=== PATIENT | male | born 1940 | race Two or more races ===

== ENCOUNTER 2022-10-20 07:04 | Emergency (ER) | payer OTHER ==
[~2022-10-20] VITALS: Ht 180.3 cm; Wt 81.0 kg
[2022-10-20 07:48] VITALS: BP 129/70
[2022-10-20] MEDS ORDERED: IPRATROPIUM BROM 0.5 MG/2.5ML INH SOL NEB ONE (08:00)
[2022-10-20] MEDS ORDERED: ALBUTEROL SULF 2.5 MG/0.5ML(0.5%) NEB SOLN NEB ONE (08:00)
[2022-10-20] MEDS ORDERED: HYDROcodone-ACET 5/325MG TAB PO ONE (09:30)
[2022-10-20] MEDS ORDERED: HYDR-4902 PO (09:36)
== END 2022-10-20 09:40 | disposition home or self-care (01) ==
LOC: ER 07:04 → EDBD 07:04 → ER 09:40
DX: S72.144A Nondisplaced intertrochanteric fracture of right femur, initial encounter for closed fracture (principal); S72.001A Fracture of unspecified part of neck of right femur, initial encounter for closed fracture; S09.8XXA Other specified injuries of head, initial encounter; J44.9 Chronic obstructive pulmonary disease, unspecified; E11.9 Type 2 diabetes mellitus without complications; Z88.2 Allergy status to sulfonamides; W01.0XXA Fall on same level from slipping, tripping and stumbling without subsequent striking against object, initial encounter; Y93.01 Activity, walking, marching and hiking; Y92.89 Other specified places as the place of occurrence of the external cause; Y99.8 Other external cause status
CPT/HCPCS: 70450; 73700; 94640; 99284; J7644

== ENCOUNTER 2023-04-07 07:50 | Inpatient (IN) | payer OTHER ==
[~2023-04-07] VITALS: Ht 177.8 cm; Wt 91.1 kg
[~2023-04-07 07:50] MED LIST: HYDR-4902 PO
[2023-04-07] MEDS ORDERED: methylPREDNISolone SOD SUCC 125 MG/2 ML VL IV ONE (08:00)
[2023-04-07] MEDS ORDERED: FUROSEMIDE 40 MG/4 ML VIAL IV ONE (08:00)
[2023-04-07] MEDS ORDERED: cefTRIAXone 1GM/50ML D5W 50 ML IV ONE (08:15)
[2023-04-07] MEDS ORDERED: levoFLOXacin 500MG 100 ML IV ONE (08:15)
[2023-04-07 08:25] LABS: Basophils # (auto) 0.1 10 ^3/uL (0-0.2); Basophils % (auto) 0.7 % (0.0-2.0); Eosinophils # (auto) 0.3 10 ^3/uL (0-0.8); Eosinophils % (auto) 2.7 % (0.0-7.0); Hemoglobin 13.4 g/dL (13.5-17.5); Lymphocytes # (auto) 0.7 10 ^3/uL (0.4-5.4); Lymphocytes % (auto) 6.7 % (10.0-50.0); Mean Corpuscular Hemoglobin 29.7 pg (28.0-32.0); Mean Corpuscular Hgb Conc. 32.6 g/dL (32.0-36.0); Mean Corpuscular Volume 91.3 fL (80.0-100.0); Monocytes # (auto) 0.7 10 ^3/uL (0-1.3); Monocytes % (auto) 6.6 % (0.0-12.0); Neutrophils # (auto) 9.3 10 ^3/uL (1.6-8.6); Neutrophils % (auto) 83.3 % (37.0-80.0); Red Blood Cells 4.49 10^6/uL (4.5-5.90); Red Cell Distribution Width 17.7 % (11.8-14.3); White Blood Cell 11.1 10^3/uL (4.4-10.8)
[2023-04-07 08:42] LABS: Alanine Aminotransferase 31 U/L (7-40); Albumin 3.8 g/dL (3.2-4.8); Alkaline Phosphatase 105 U/L (46-116); Anion Gap 8 (5-15); Aspartate Aminotransferase 25 U/L (13-40); BUN/Creatinine Ratio 19.9 (10.0-20.0); Blood Urea Nitrogen 30 mg/dL (9-23); Calcium 8.7 mg/dL (8.7-10.4); Carbon Dioxide 27 mmol/L (20-30); Chloride 108 mmol/L (98-107); Glucose 115 mg/dL (74-106); Magnesium 2.1 mg/dL (1.6-2.6); Potassium 4.5 mmol/L (3.5-5.1); Sodium 143 mmol/L (136-145); Total Protein 6.4 g/dL (5.7-8.2)
[2023-04-07 09:13] LABS: COVID19 ANTIGEN SOFIA FIA NEGATIVE (NEGATIVE)
[2023-04-07 09:43] VITALS: PULSE 102; RESP 25; O2SAT 96
[2023-04-07 11:23] LABS: Urine Bacteria FEW /hpf (None Seen); Urine Blood Negative /uL (Negative); Urine Clarity Clear (Clear); Urine Color Colorless (Yellow); Urine Hyaline Cast FEW /lpf (0 - 2); Urine Protein, UAD TRACE (Negative); Urine Urobilinogen Normal (Negative); Urine WBC <1 /hpf (0 - 3); Urine pH 5.5 (5.0-8.0)
[2023-04-07] MEDS ORDERED: NITROGLYCERIN 0.4 MG SL TAB SL PRN (11:45)
[2023-04-07] MEDS ORDERED: AZITHROMYCIN 500MG/ 250ML 250 ML IV ONE (11:45)
[2023-04-07] MEDS ORDERED: ACETAMINOPHEN 325 MG TAB PO PRN (11:45)
[2023-04-07] MEDS ORDERED: HYDROcodone-ACET 5/325MG TAB PO PRN (11:45)
[2023-04-07] MEDS ORDERED: MORPHINE SULFATE INJ 2 MG/ml SYRG IV PRN (11:45)
[2023-04-07] MEDS ORDERED: ASPirin 81 mg TAB PO ONE (11:45)
[2023-04-07] MEDS ORDERED: ONDANSETRON HCL 4 MG/2 ML VIAL IV PRN (11:45)
[2023-04-07] MEDS ORDERED: ALPRAZolam 0.25 MG TAB PO PRN (11:45)
[2023-04-07] MEDS ORDERED: IPRATROPIUM BROM 0.5 MG/2.5ML INH SOL NEB PRN (12:00)
[2023-04-07] MEDS ORDERED: ENOXAPARIN SOD 80 MG/0.8ML SYRINGE SC ONE (12:00)
[2023-04-07] MEDS ORDERED: ALBUTEROL MEDNEB 2.5 mg/3ml NEB NEB PRN (12:00)
[2023-04-07] MEDS ORDERED: DEXTROSE (50%) 50ML SYRG IV PRN (14:00)
[2023-04-07 14:12] VITALS: BP 134/76; PULSE 94; RESP 24; TEMP 99; O2SAT 96
[2023-04-07 14:17] VITALS: BP 142/79; PULSE 109; RESP 20; TEMP 99
[2023-04-07] MEDS ORDERED: MECL1TAB32 PO (17:46)
[2023-04-07] MEDS ORDERED: GABA-1250 PO (17:46)
[2023-04-07] MEDS ORDERED: FURO20TA3 PO (17:46)
[2023-04-07] MEDS ORDERED: SEMA1INJ2 SC (17:46)
[2023-04-07] MEDS ORDERED: FAMO20IN2 PO (17:46)
[2023-04-07] MEDS ORDERED: POTA99TA5 PO (17:46)
[2023-04-07] MEDS ORDERED: ALBU2TAB11 PO (17:46)
[2023-04-07] MEDS ORDERED: EMPA1TAB3 PO (17:46)
[2023-04-07] MEDS ORDERED: SPIR25TA8 PO (17:46)
[2023-04-07] MEDS ORDERED: CHOL20007 PO (17:46)
[2023-04-07] MEDS ORDERED: ALLO100T PO (17:46)
[2023-04-07] MEDS ORDERED: ASPI81CH49 PO (17:46)
[2023-04-07] MEDS ORDERED: CINA30TA2 PO (17:46)
[2023-04-07] MEDS ORDERED: IPRA0.03 (17:46)
[2023-04-07] MEDS ORDERED: APIX2.5T PO (17:46)
[2023-04-07] MEDS ORDERED: ATO40T PO (17:46)
[2023-04-07] MEDS ORDERED: FERR325T24 PO (17:46)
[2023-04-07] MEDS: ACCU-CHEK COMFORT CURVE STRIP VI SCH ×2 (18:14→21:30)
[2023-04-07] MEDS: InsuLIN REG 1unit/0.01ml Soln (100units/ml) SC SCH ×2 (18:17→21:30)
[2023-04-07 19:30] VITALS: PULSE 78; RESP 17
[2023-04-07 20:50] VITALS: O2SAT 97
[2023-04-07] MEDS: CEFEPIME 1GM/ 50ML 50 ML IV SCH (21:11)
[2023-04-07] MEDS: methylPREDNISolone SOD SUCC 125 MG/2 ML VL IV SCH (21:11)
[2023-04-07] MEDS: ENOXAPARIN SOD 80 MG/0.8ML SYRINGE SC SCH (21:12)
[2023-04-07 22:00] VITALS: BP 116/73; PULSE 75; RESP 17; TEMP 97.6; O2SAT 99
[2023-04-07] MEDS ORDERED: APIXABAN 2.5 MG TAB PO SCH (22:00)
[2023-04-08] VITALS (10 sets, daily range): BP systolic 115–135; BP diastolic 68–81; PULSE 56–108; RESP 16–22; TEMP 97.7–99.2; O2SAT 66–99
[2023-04-08] MEDS: InsuLIN REG 1unit/0.01ml Soln (100units/ml) SC SCH ×4 (05:59→21:09)
[2023-04-08] MEDS: ACCU-CHEK COMFORT CURVE STRIP VI SCH ×4 (06:01→22:00)
[2023-04-08 08:13] LABS: Basophils # (auto) 0 10 ^3/uL (0-0.2); Basophils % (auto) 0.1 % (0.0-2.0); Eosinophils # (auto) 0 10 ^3/uL (0-0.8); Hematocrit 38.5 % (41.0-53.0); Hemoglobin 12.9 g/dL (13.5-17.5); Lymphocytes # (auto) 0.7 10 ^3/uL (0.4-5.4); Lymphocytes % (auto) 11.4 % (10.0-50.0); Mean Corpuscular Hemoglobin 30.1 pg (28.0-32.0); Mean Corpuscular Hgb Conc. 33.4 g/dL (32.0-36.0); Mean Corpuscular Volume 90.2 fL (80.0-100.0); Monocytes # (auto) 0.2 10 ^3/uL (0-1.3); Neutrophils % (auto) 84.5 % (37.0-80.0); Red Blood Cells 4.26 10^6/uL (4.5-5.90); Red Cell Distribution Width 17.1 % (11.8-14.3)
[2023-04-08 08:27] LABS: Alanine Aminotransferase 24 U/L (7-40); Albumin 3.6 g/dL (3.2-4.8); Anion Gap 7 (5-15); Aspartate Aminotransferase 16 U/L (13-40); BUN/Creatinine Ratio 24.3 (10.0-20.0); Blood Urea Nitrogen 37 mg/dL (9-23); Calcium 9.2 mg/dL (8.5-10.1); Carbon Dioxide 29 mmol/L (20-30); Chloride 107 mmol/L (98-107); Glucose 192 mg/dL (74-106); Sodium 143 mmol/L (136-145)
[2023-04-08 08:28] LABS: Bilirubin, Total 0.7 mg/dL (0.2-1.0); Total Protein 5.8 g/dL (5.7-8.2)
[2023-04-08 09:25] LABS: Alkaline Phosphatase 80 U/L (46-116); Magnesium 2.2 mg/dL (1.6-2.6)
[2023-04-08] MEDS: ASPirin 81 mg TAB PO SCH (10:04)
[2023-04-08] MEDS: methylPREDNISolone SOD SUCC 125 MG/2 ML VL IV SCH ×2 (10:04→21:25)
[2023-04-08] MEDS: ENOXAPARIN SOD 80 MG/0.8ML SYRINGE SC SCH ×2 (10:04→21:26)
[2023-04-08] MEDS: PANTOPRAZOLE 40 MG TAB PO SCH (10:04)
[2023-04-08] MEDS: AZITHROMYCIN 500MG/ 250ML 250 ML IV SCH (10:04)
[2023-04-08] MEDS: CEFEPIME 1GM/ 50ML 50 ML IV SCH ×2 (10:05→21:19)
[2023-04-08] MEDS: FUROSEMIDE 40 MG/4 ML VIAL IV SCH (10:11)
[2023-04-09] VITALS (11 sets, daily range): BP systolic 105–143; BP diastolic 59–76; PULSE 56–101; RESP 18–22; TEMP 97.6–98.7; O2SAT 91–100
[2023-04-09] MEDS: InsuLIN REG 1unit/0.01ml Soln (100units/ml) SC SCH ×4 (05:57→21:00)
[2023-04-09] MEDS: ACCU-CHEK COMFORT CURVE STRIP VI SCH ×4 (06:29→22:00)
[2023-04-09 06:32] LABS: Anion Gap 5 (5-15); Calcium 9.3 mg/dL (8.7-10.4); Carbon Dioxide 30 mmol/L (20-30); Chloride 106 mmol/L (98-107); Potassium 4.2 mmol/L (3.5-5.1); Sodium 141 mmol/L (136-145)
[2023-04-09 07:01] LABS: BUN/Creatinine Ratio 23.8 (10.0-20.0); Blood Urea Nitrogen 39 mg/dL (9-23); Glucose 157 mg/dL (74-106)
[2023-04-09 07:02] LABS: Magnesium 2.3 mg/dL (1.6-2.6)
[2023-04-09 09:45] LABS: INR 1.15 (0.9-1.15); Partial Thromboplastin Time 31.8 SEC (24.5-34.5)
[2023-04-09] MEDS: ENOXAPARIN SOD 80 MG/0.8ML SYRINGE SC SCH (09:58)
[2023-04-09] MEDS: PANTOPRAZOLE 40 MG TAB PO SCH (09:59)
[2023-04-09] MEDS: FUROSEMIDE 40 MG/4 ML VIAL IV SCH (09:59)
[2023-04-09] MEDS: AZITHROMYCIN 500MG/ 250ML 250 ML IV SCH (09:59)
[2023-04-09] MEDS: methylPREDNISolone SOD SUCC 125 MG/2 ML VL IV SCH ×2 (09:59→21:15)
[2023-04-09] MEDS: ASPirin 81 mg TAB PO SCH (09:59)
[2023-04-09] MEDS: CEFEPIME 1GM/ 50ML 50 ML IV SCH ×2 (12:00→21:15)
[2023-04-09] MEDS: APIXABAN 2.5 MG TAB PO SCH (21:14)
[2023-04-10] VITALS (7 sets, daily range): BP systolic 141–148; BP diastolic 74–98; PULSE 59–78; RESP 17–22; TEMP 97.9–98.1; O2SAT 97–100
[2023-04-10] MEDS: InsuLIN REG 1unit/0.01ml Soln (100units/ml) SC SCH ×2 (05:49→12:04)
[2023-04-10] MEDS: ACCU-CHEK COMFORT CURVE STRIP VI SCH ×2 (06:31→12:03)
[2023-04-10] MEDS ORDERED: METH4PAK PO (09:19)
[2023-04-10] MEDS ORDERED: AZITTAB PO (09:19)
[2023-04-10] MEDS: APIXABAN 2.5 MG TAB PO SCH (09:30)
[2023-04-10] MEDS: methylPREDNISolone SOD SUCC 125 MG/2 ML VL IV SCH (09:31)
[2023-04-10] MEDS: ASPirin 81 mg TAB PO SCH (09:31)
[2023-04-10] MEDS: AZITHROMYCIN 500MG/ 250ML 250 ML IV SCH (09:31)
[2023-04-10] MEDS: PANTOPRAZOLE 40 MG TAB PO SCH (09:31)
[2023-04-10] MEDS: FUROSEMIDE 40 MG/4 ML VIAL IV SCH (09:32)
[2023-04-10] MEDS: CEFEPIME 1GM/ 50ML 50 ML IV SCH (10:00)
== END 2023-04-10 13:32 | disposition home or self-care (01) | DRG 280 ==
LOC: ER 07:50 → EDBD 07:50 → TELE 11:41 → TELE-WESTW 16:57
PROVIDERS: ADMIT Internal Medicine Geriatric Medicine; ATTEND Internal Medicine Geriatric Medicine
DX: I21.4 Non-ST elevation (NSTEMI) myocardial infarction (principal); I50.43 Acute on chronic combined systolic (congestive) and diastolic (congestive) heart failure; J96.21 Acute and chronic respiratory failure with hypoxia; J18.9 Pneumonia, unspecified organism; J44.1 Chronic obstructive pulmonary disease with (acute) exacerbation; J44.0 Chronic obstructive pulmonary disease with (acute) lower respiratory infection; I13.0 Hypertensive heart and chronic kidney disease with heart failure and stage 1 through stage 4 chronic kidney disease, or unspecified chronic kidney disease; I42.9 Cardiomyopathy, unspecified; J98.11 Atelectasis; I48.91 Unspecified atrial fibrillation; E11.22 Type 2 diabetes mellitus with diabetic chronic kidney disease; I25.10 Atherosclerotic heart disease of native coronary artery without angina pectoris; Z96.649 Presence of unspecified artificial hip joint; I35.0 Nonrheumatic aortic (valve) stenosis; N18.9 Chronic kidney disease, unspecified; F17.210 Nicotine dependence, cigarettes, uncomplicated; Z20.822 Contact with and (suspected) exposure to COVID-19; Z79.01 Long term (current) use of anticoagulants; Z99.81 Dependence on supplemental oxygen; Z87.01 Personal history of pneumonia (recurrent); Z98.61 Coronary angioplasty status; Z90.49 Acquired absence of other specified parts of digestive tract; Z88.2 Allergy status to sulfonamides
CPT/HCPCS: 36415; 71045; 78582; 80048; 80053; 81001; 82962; 83605; 83735; 83880; 84484; 85025; 85379; 85610; 85730; 87040; 87081; 87426; 93005; 93306; 94640; 96365; 96367; 96372; 96375; 99291; G0378; J0696; J1815; J1956

== ENCOUNTER 2024-04-27 21:03 | Inpatient (IN) | payer OTHER ==
[~2024-04-27 21:03] MED LIST changes: +ALBU2TAB11 PO; +ALLO100T PO; +APIX2.5T PO; +ASPI81CH49 PO; +ATOR-507 PO; +AZITTAB PO; +CHOL20007 PO; +CINA30TA2 PO; +EMPA1TAB3 PO; +FAMO20IN2 PO; +FERR325T24 PO; +FURO20TA3 PO; +GABA-1250 PO; +IPRA0.03; +MECL-90 PO; +METH4PAK PO; +POTA99TA5 PO; +SEMA1INJ2 SC; +SPIR25TA8 PO
--- NOTE | 2024-04-27 21:30 | ED.PDOC ---
History of Present Illness HPI Comments 83 y/o M, with a Hx of AFIB, CHF, CKF, COPD, DM, HLD, HTN, [place], PTCA, pacemaker, and "cervical clogged arteries," is BIBA for c/o ALOC, generalized weakness, and right foot swelling, pain, and redness, today. Per EMS report, family called due to patient not returning back to his normal baseline and complaining of generalized weakness and "not feeling well" after having a petit mal seizure at 1630, this evening. Patient is also reported to complain of right foot symptoms for the past 2x days and rates pain an 8/10. Patient has no endorsed additional relevant or pertinent recent Hx, such as sick contact, travel, stress, or substance use/exposure. Patient has no reported chest pain, lightheadedness, nausea, vomiting, fever, chills, or other associated symptoms or modifiers at this time. Chief Complaint: General Weakness Time Seen by MD: 21:15 Primary Care Provider: AL Reviewed Notes: Nurses Notes, Manager Wound Notes, Medications, Allergies Allergies: Coded Allergies: Sulfa Antibiotics (Verified Allergy, Unknown, 04/07/23) Home Meds Active Scripts Azithromycin (Zithromax Z-Mikie) 250 Mg Tab, 250 MG PO DAILY, #6 TAB Prov:ORVILLE FRANKS MD 04/10/23 Methylprednisolone (Medrol Dosepak) 4 Mg Mikie, 4 MG PO UD, #21 TAB UAD Prov:ORVILLE FRANKS MD 04/10/23 Hydrocodone-Acetaminophen (Hydrocodone Bitartrate/AC 5-325 mg) 1 Tab Tab, 1 TAB PO BID, #14 TAB Prov:KELLIE MARIE 10/20/22 Reported Medications Gabapentin (Gabapentin) 300 Mg Cap, 300 MG PO DAILY for 30 Days, MG 04/07/23 Allopurinol (Allopurinol) 100 Mg Tab, 100 MG PO DAILY for 30 Days, MG 04/07/23 Cholecalciferol (VITAMIN D3) 2,000 Unit Tab, 2000 UNIT PO DAILY, TAB 04/07/23 Potassium Gluconate (Potassium) 595 Mg Tab, 8 MEQ PO DAILY, TAB 04/07/23 Meclizine Hcl (Meclizine Hcl) 25 Mg Tab, 25 MG PO BIDP PRN for DIZZINESS for 30 Days, MG 04/07/23 Famotidine In Nacl (Famotidine) 20 Mg/50 M Inj, 40 MG PO, INJ 04/07/23 Atorvastatin Calcium (Lipitor) 40 Mg Tab, 1 TAB PO QPM, #90 TAB 1 Refill 04/07/23 Ferrous Sulfate (Ferrous Sulfate) 325 Mg Tab, 325 MG PO EOD for 30 Days, MG 04/07/23 Spironolactone (Spironolactone) 25 Mg Tab, 1 TAB PO DAILY, #90 TAB 1 Refill 04/07/23 Furosemide (Furosemide) 20 Mg Tab, 20 MG PO BIDD for 30 Days, MG 04/07/23 Cinacalcet Hydrochloride (Sensipar) 30 Mg Tab, 60 MG PO DAILY, TAB 04/07/23 Empagliflozin (Jardiance) 25 Mg Tab, 25 MG PO DAILY, TAB 04/07/23 Semaglutide (Ozempic 8 mg/3Ml) 1 Inj Inj, 0.5 INJ SC QWEEKLY, INJ 04/07/23 Apixaban Base (ELIQUIS) 2.5 Mg Tab, 2.5 MG PO BID, TAB 04/07/23 Aspirin (Aspirin) 81 Mg Chw, 81 MG PO DAILY, TAB.CHEW 04/07/23 Ipratropium [place] (Ipratropium [place]) 0.03 % Spr, 0.2 % NA QID, SPRAY 04/07/23 Albuterol Sulfate (Albuterol Sulfate) 2 Mg Tab, 2 MG PO Q6HP, MG 04/07/23 Information Source: Patient, Emergency Med Personnel Mode of Arrival: Ambulatory Severity: Moderate Timing: Hours Duration: Since onset Prehospital treatment: 12 Lead EKG, Accucheck, Histology Technician Past Medical History PAST MEDICAL HISTORY: AFIB, CHF, CKF, COPD, DM, High Lipids, HTN, [place] Past Medical History (Other): "cervical clogged arteries," Surgical History: Appendectomy, Cholecystectomy, Pacemaker, PTCA Family History Family History: Reviewed,noncontributory to illness, Family hx of DM, Family hx of Cancer, Family hx of heart jeremy Social History Smoker: Non-Smoker, Quit Greater Than 1 Year Alcohol: Denies ETOH Use Drugs: Denies Drug Use Lives In: Home Neurological: reports: weakness, others (ALOC) Musculoskeletal: reports: others (right foot swelling and pain ) Integumetry: reports: change in color (right foot redness) All Other Systems: Reviewed and Negative (all pertinent negative unless otherwise stated in HPI) Physical Exam General Appearance: No Apparent Distress, Normal HEENT: Normal ENT Inspection, Pharynx Normal, TMs Normal Neck: Full Range of Motion, Non-Tender, Normal, Normal Inspection Respiratory: Chest Non-Tender, Lungs Clear, No Accessory Muscle Use, No Respiratory Distress, Normal Breath Sounds Cardiovascular: No Edema, No JVD, No Murmur, No Gallop, Normal Peripheral Pulses, Regular Rate/Rhythm Breast Exam: Deferred Gastrointestinal: No Organomegaly, Non Tender, No Pulsatile Mass, Normal Bowel Sounds, Soft Genitalia: Deferred Pelvic: Deferred Rectal: Deferred Extremities: No calf tenderness, Normal capillary refill, Normal range of motion, Non-tender, No pedal edema, Other (right foot erythamatous and warm ) Musculoskeletal : Apperance: Normal Neurologic: Alert, sheet metal fabricator II-XII nml as Tested, No Motor Deficits, Normal Affect, Normal Mood, No Sensory Deficits Cerebellar Function: Normal Reflexes: Normal Skin: Dry, Normal Color, Warm, Other (right foot erythamatous and warm ) Lymphatic: No Adenopathy Was a procedure done? Was a procedure done?: No Differential Dx Considerations may include: encephalopathy, seizure, hypoxia, dehydration, electrolyte imbalance, cellulitis, dermatitis X-Ray, Labs, Meds, VS Vital Signs Date Time Temp Pulse Resp B/P (MAP) Pulse Ox O2 Delivery O2 Flow Rate FiO2 04/28/24 00:15 70 19 97 Nasal Cannula* 2 28 04/28/24 00:13 98.4 70 19 146/78 (100) 97 98.4 04/27/24 22:40 70 04/27/24 21:03 99.0 70 20 142/72 (95) 91 Lab Test 04/28/24 00:20 04/27/24 23:30 04/27/24 22:29 04/27/24 21:31 Range/Units Troponin I High Sensitivity 336 *H 332 *H 324 *H </=54 ng/L Urine Color Light-yellow Yellow Urine Clarity Clear Clear Urine pH 5.5 5.0-9.0 Urine Specific [place] 1.014 1.001-1.035 Urine Protein Trace H Negative Urine Ketones Negative Negative Urine Blood Negative Negative /uL Urine Nitrite Negative Negative Urine Bilirubin Negative Negative Urine Urobilinogen Normal Negative mg/dL Urine Leukocyte Esterase Negative Negative /uL Urine RBC None seen 0 - 3 /hpf Urine WBC <1 0 - 3 /hpf Urine Squamous Epithelial Cells None seen <5 /hpf Urine Bacteria None seen None Seen /hpf Urine Glucose 4+ H Normal mg/dL White Blood Count 15.5 H 4.4-10.8 10^3/uL Red Blood Count 4.20 L 4.5-5.90 10^6/uL Hemoglobin 12.4 L 13.5-17.5 g/dL Hematocrit 38.7 L 41.0-53.0 % Mean Corpuscular Volume 92.1 80.0-100.0 fL Mean Corpuscular Hemoglobin 29.4 28.0-32.0 pg Mean Corpuscular Hemoglobin Concent 31.9 L 32.0-36.0 g/dL Red Cell Distribution Width 19.9 H 11.8-14.3 % Platelet Count 215 140-450 10^3/uL Mean Platelet Volume 8.2 6.9-10.8 fL Neutrophils (%) (Auto) 84.2 H 37.0-80.0 % Lymphocytes (%) (Auto) 5.4 L 10.0-50.0 % Monocytes (%) (Auto) 8.2 0.0-12.0 % Eosinophils (%) (Auto) 1.9 0.0-7.0 % Basophils (%) (Auto) 0.3 0.0-2.0 % Neutrophils # (Auto) 13.0 H 1.6-8.6 10 ^3/uL Lymphocytes # (Auto) 0.8 0.4-5.4 10 ^3/uL Monocytes # (Auto) 1.3 0-1.3 10 ^3/uL Eosinophils # (Auto) 0.3 0-0.8 10 ^3/uL Basophils # (Auto) 0 0-0.2 10 ^3/uL Nucleated Red Blood Cells 0.0 % Sodium Level 143 136-145 mmol/L Potassium Level 4.1 3.5-5.1 mmol/L Chloride Level 107 98-107 mmol/L Carbon Dioxide Level 29 20-31 mmol/L Anion Gap 7 5-15 Blood Urea Nitrogen 57 H 9-23 mg/dL Creatinine 1.92 H 0.700-1.30 mg/dL Glomerular Filtration Rate Calc 34 >90 mL/min BUN/Creatinine Ratio 29.7 H 10.0-20.0 Serum Glucose 122 H 74-106 mg/dL Calcium Level 9.9 8.7-10.4 mg/dL Time of 1ST Reevaluation: 21:45 Reevaluation 1ST: Unchanged Patient Education/Counseling: Diagnosis, Treatment Family Education/Counseling: No Family Present Departure 1 Departure Time of Disposition: 01:20 (Patient with worsening generalized weakness and cellulitis of the right foot. Ordered reviewed the CBC BNP is concerning for infection. I personally reviewed interpreted the x-ray appears benign.) Impression: Primary Impression: Cellulitis of foot, right Additional Impression: Generalized weakness Disposition: ADMITTED INPATIENT Admit to: Med Surg Condition: Serious Critical Care Note Critical Care Time?: No Stability Stability form required: No Heart Score Heart Score: Heart Score Response (Comments) Value History N/A 0 EKG N/A 0 Age N/A 0 Risk Factors N/A 0 Troponin N/A 0 Total 0 I personally scribed for TAJ BOURNE MD ([email or web address]) on 04/27/24 at 21:30. Electronically submitted by Ciro Canales ([email or web address]). TAJ BOURNE MD Apr 27, 2024 21:30
[2024-04-27 21:52] LABS: Basophils # (auto) 0 10 ^3/uL (0-0.2); Basophils % (auto) 0.3 % (0.0-2.0); Eosinophils # (auto) 0.3 10 ^3/uL (0-0.8); Eosinophils % (auto) 1.9 % (0.0-7.0); Hematocrit 38.7 % (41.0-53.0); Hemoglobin 12.4 g/dL (13.5-17.5); Lymphocytes # (auto) 0.8 10 ^3/uL (0.4-5.4); Lymphocytes % (auto) 5.4 % (10.0-50.0); Mean Corpuscular Hemoglobin 29.4 pg (28.0-32.0); Mean Corpuscular Hgb Conc. 31.9 g/dL (32.0-36.0); Mean Corpuscular Volume 92.1 fL (80.0-100.0); Monocytes # (auto) 1.3 10 ^3/uL (0-1.3); Monocytes % (auto) 8.2 % (0.0-12.0); Neutrophils % (auto) 84.2 % (37.0-80.0); Platelet Count (auto) 215 10^3/uL (140-450); Red Cell Distribution Width 19.9 % (11.8-14.3); White Blood Cell 15.5 10^3/uL (4.4-10.8)
[2024-04-27 21:54] LABS: Anion Gap 7 (5-15); Carbon Dioxide 29 mmol/L (20-31); Chloride 107 mmol/L (98-107); Potassium 4.1 mmol/L (3.5-5.1); Sodium 143 mmol/L (136-145)
[2024-04-27 21:55] LABS: Calcium 9.9 mg/dL (8.7-10.4)
[2024-04-27 22:00] LABS: BUN/Creatinine Ratio 29.7 (10.0-20.0)
[2024-04-27 22:01] LABS: Blood Urea Nitrogen 57 mg/dL (9-23); Glucose 122 mg/dL (74-106)
--- NOTE | 2024-04-27 23:32 | DVH ---
CT HEAD WITHOUT CONTRAST INDICATION: weakness EXAM DATE: 04/27/2024 10:42 PM COMPARISON: CT CT R HIP WITH OUT CONTRAST on DOS: 10/20/22, CT HEAD WITHOUT CONTRAST on DOS: 10/20/22 RADIATION DOSE: CTDIvol: 63 mGy, DLP: 1243 mGy*cm PROCEDURE: CT scans of the head were obtained from the vertex to the skull base. Sagittal and coronal reconstructions were provided. All CT scans at this medical facility are performed using dose modulation techniques as appropriate t o a performed exam including the following: Automated exposure control was utilized; adjustment of th e MA and/or KV according to patient size; and use of iterative reconstruction technique. FINDINGS: There is sulcal and ventricular prominence. The brain otherwise shows normal morphology a nd curiel-white matter differentiation, without intracranial hemorrhage, extra-axial fluid collection, mass effect or acute large vessel infarct.The basal cisterns are patent. The skull and visible facial bones are intact. The paranasal sinuses, mastoid air cells and middle ear cavities are well-aerated. The soft tissues of the scalp are unremarkable. IMPRESSION: No acute intracranial abnormality.
[2024-04-27 23:46] LABS: Urine Bacteria None Seen /hpf (None Seen)
--- NOTE | 2024-04-27 23:50 | DVH ---
XY R FOOT 3 VIEW XRAY, INDICATION: right foot pain and redness TECHNICAL DATA: Frontal, oblique and lateral views were obtained of the right foot. COMPARISON: None FINDINGS: No fracture is identified. Joint spaces are maintained. Alignment is anatomic. The hallux sesamoids a ppear normal. Soft tissues are within normal limits. IMPRESSION: No acute fracture or dislocation of the right foot.
--- NOTE | 2024-04-27 23:51 | DVH ---
XY CHEST PORTABLE, HISTORY: weakness COMPARISON: XY CHEST PORTABLE on DOS: 04/07/23 XY CHEST PORTABLE on DOS: 04/07/23 TECHNICAL DATA: 1 view of the chest was obtained. FINDINGS: Lines and tubes: A cardiac pacer is seen. A valve prosthesis is seen. Cardiomediastinal silhouette: Enlarged Pulmonary vasculature: Prominent Lung expansion: normal Lung airspace: normal Lung interstitium: Increased Pleura: normal Pneumothorax: no Bones: Unremarkable Other: no IMPRESSION: Cardiomegaly with interstitial pulmonary edema.
[2024-04-27 23:58] LABS: Urine Blood Negative /uL (Negative); Urine Clarity Clear (Clear); Urine Color Light-Yellow (Yellow); Urine Protein, UAD TRACE (Negative); Urine Specific Gravity 1.014 (1.001-1.035); Urine Urobilinogen Normal (Negative); Urine WBC <1 /hpf (0 - 3); Urine pH 5.5 (5.0-9.0)
[2024-04-28] VITALS (8 sets, daily range): BP systolic 133; BP diastolic 66; PULSE 70–75; RESP 17–20; TEMP 98.4; O2SAT 94–98
[2024-04-28] MEDS: VANCOMYCIN 1GM/250ML KIT 200 ML IV ONE (01:41)
[2024-04-28] MEDS ORDERED: VANCOMYCIN PER PHARMACY 0 MG IV SCH (01:45)
[2024-04-28] MEDS: FUROSEMIDE 40 MG/4 ML VIAL IV ONE (01:45)
[2024-04-28] MEDS ORDERED: HYDROcodone-ACET 5/325MG TAB PO PRN (01:45)
[2024-04-28] MEDS: ASPirin 81 mg TAB PO ONE (01:45)
[2024-04-28] MEDS ORDERED: ACETAMINOPHEN 325 MG TAB PO PRN (01:45)
[2024-04-28] MEDS ORDERED: ONDANSETRON HCL 4 MG/2 ML VIAL IV PRN (01:45)
[2024-04-28] MEDS ORDERED: DEXTROSE (50%) 50ML SYRG IV PRN (01:45)
[2024-04-28] MEDS ORDERED: DOCUSATE SOD 100 MG CAP PO PRN (01:45)
--- NOTE | 2024-04-28 03:39 | DVHHP2 ---
History of Present Illness Reason for Visit: Generalized weakness History of Present Illness The patient is a 83-year-old male with past medical history of chronic kidney failure, AFib, CHF, COPD, DM, [place], hypertension, and hyperlipidemia who presented to [facility] ED for evaluation of generalized weakness. Patient reports symptoms progressively get worse with right foot swelling, pain, redness, shortness of breaths, had a petit mal seizure this evening, rating pain 8/10 numeric scale, getting worse that prompted this visit. Patient was seen and evaluated in the ED, laboratory data shows WBC 15.5, platelets 215, sodium 143, potassium 4.1, BUN 57, creatinine 1.92, glucose 122, troponin 336, blood pressure 146/78, heart rate 70, temperature 98.4 F, O2 saturation 97% on oxygen. Chest x-ray revealing cardiomegaly with interstitial pulmonary edema. Patient was started on IV Lasix, please see medication orders section in the computer. On my assessment, patient denied chest pain, no headache, no dizziness, currently on oxygen, no diarrhea, no nausea, no vomiting, no fever, no chills. Patient was admitted for further evaluation and medical management. Past Medical History AFIB, CHF, CKF, COPD, DM, High Lipids, HTN, [place] "Cervical clogged arteries," Past Surgical History Appendectomy, Cholecystectomy, Pacemaker, PTCA Family History Reviewed, noncontributory to the management of this case. Past Social History The patient lives at home, denies smoking, alcohol or illicit drugs abuse. Review of Systems Constitutional: Yes: Weakness; No: Fever, Chills, Sweats, Malaise, Other Eyes: No: Pain, Vision change, Conjunctivae inflammation, Eyelid inflammation, Other, Redness ENT: No: Ear pain, Ear discharge, Nose pain, Nose discharge, Nose congestion, Mouth pain, Mouth swelling, Throat pain, Throat swelling, Other Respiratory: Shortness of breath; No: Cough, Dry, SOB with excertion, Wheezing, Hemoptysis, Pleuritic Pain, Sputum, Wheezing, Other Cardiovascular: No: Chest Pain, Palpitations, Orthopnea, Paroxysmal Noc. Dyspnea, Edema, Lt Headedness, Other Gastrointestinal: No: Nausea, Vomiting, Abdominal Pain, Diarrhea, Constipation, Melena, Hematochezia, Other Genitourinary: No Dysuria, No Frequency, No Incontinence, No Hematuria, No Retention, No Other Musculoskeletal: other (right foot swelling and pain ); No: neck pain, shoulder pain, arm pain, back pain, hand pain, leg pain, foot pain Skin: Other (right foot redness); No: Rash, Lesions, Jaundice, Bruising Neurological: Weakness, Other (Altered level of consciousness); No: Numbness, Incoordination, Change in speech, Confusion, Seizures Allergies: Coded Allergies: Sulfa Antibiotics (Verified Allergy, Unknown, 04/07/23) Medications Current Medications Medications Dose Ordered Sig/Brandi Route Start Time Stop Time Status Last Admin Dose Admin Vancomycin HCl 0 ml @ 0 mls/hr UD IV 04/28/24 01:45 UNV Aspirin 81 mg DAILY PO 04/29/24 10:00 UNV Ceftriaxone Sodium 50 ml @ 100 mls/hr DAILY@09 IV 04/28/24 09:00 Furosemide 40 mg DAILY IV 04/28/24 10:00 Atorvastatin Calcium 20 mg HS PO 04/28/24 22:00 Famotidine 20 mg DAILY IV 04/28/24 10:00 Apixaban 2.5 mg BID PO 04/28/24 10:00 UNV Diagnostic Test (Pha) 1 strip ACHS 04/28/24 07:00 Insulin Human Regular ACHS SC 04/28/24 07:00 Dextrose 50 ml UD PRN IV 04/28/24 01:45 Sodium Chloride 10 ml Q8HR IV 04/28/24 06:00 Acetaminophen/ Hydrocodone Bitart 1 tab Q4HP PRN PO 04/28/24 01:45 Ondansetron HCl 4 mg Q4HP PRN IV 04/28/24 01:45 Docusate Sodium 100 mg BIDPRN PRN PO 04/28/24 01:45 Acetaminophen 650 mg Q6HP PRN PO 04/28/24 01:45 Albuterol 2.5 mg Q4HPRN PRN NEB 04/28/24 01:45 Ipratropium Anselmo 0.5 mg Q4HPRN PRN NEB 04/28/24 01:45 Exam Vital Signs Vital Signs Date Time Temp Pulse Resp B/P (MAP) Pulse Ox O2 Delivery O2 Flow Rate FiO2 04/28/24 02:34 98.4 70 18 133/66 98 2.0 28 98.4 04/28/24 02:28 Nasal Cannula General Appearance: Alert, Oriented X3, Cooperative, No acute distress HEENT: Atraumatic, PERRLA, EOMI, Mucous membr. moist/pink Respiratory: Clear to auscultation, Normal air movement Cardiovascular: Regular rate, Normal S1, Normal S2, No murmurs Abdominal: Normal bowel sounds, Soft, No tenderness, No hepatospenomegaly, No masses Extremities: No clubbing, No cyanosis, No edema, Normal pulses, Other (Right foot tenderness/swelling) Skin: No rashes, No breakdown, No significant lesion Neuro: Normal speech, Normal tone, Sensation intact, Cranial nerves 3-12 NL, Reflexes 2+, Other (Generalized weakness) Psych/Mental Status: Mental status NL, Mood NL Labs/Xrays Labs Test 04/28/24 02:16 04/28/24 00:20 04/27/24 23:30 04/27/24 21:31 Range/Units Lactic Acid Level 1.4 0.4-2.0 mmol/L B-Type Natriuretic Peptide 752.30 0-100 pg/mL Troponin I High Sensitivity 336 *H </=54 ng/L Urine Color Light-yellow Yellow Urine Clarity Clear Clear Urine pH 5.5 5.0-9.0 Urine Specific [place] 1.014 1.001-1.035 Urine Protein Trace H Negative Urine Ketones Negative Negative Urine Blood Negative Negative /uL Urine Nitrite Negative Negative Urine Bilirubin Negative Negative Urine Urobilinogen Normal Negative mg/dL Urine Leukocyte Esterase Negative Negative /uL Urine RBC None seen 0 - 3 /hpf Urine WBC <1 0 - 3 /hpf Urine Squamous Epithelial Cells None seen <5 /hpf Urine Bacteria None seen None Seen /hpf Urine Glucose 4+ H Normal mg/dL White Blood Count 15.5 H 4.4-10.8 10^3/uL Red Blood Count 4.20 L 4.5-5.90 10^6/uL Hemoglobin 12.4 L 13.5-17.5 g/dL Hematocrit 38.7 L 41.0-53.0 % Mean Corpuscular Volume 92.1 80.0-100.0 fL Mean Corpuscular Hemoglobin 29.4 28.0-32.0 pg Mean Corpuscular Hemoglobin Concent 31.9 L 32.0-36.0 g/dL Red Cell Distribution Width 19.9 H 11.8-14.3 % Platelet Count 215 140-450 10^3/uL Mean Platelet Volume 8.2 6.9-10.8 fL Neutrophils (%) (Auto) 84.2 H 37.0-80.0 % Lymphocytes (%) (Auto) 5.4 L 10.0-50.0 % Monocytes (%) (Auto) 8.2 0.0-12.0 % Eosinophils (%) (Auto) 1.9 0.0-7.0 % Basophils (%) (Auto) 0.3 0.0-2.0 % Neutrophils # (Auto) 13.0 H 1.6-8.6 10 ^3/uL Lymphocytes # (Auto) 0.8 0.4-5.4 10 ^3/uL Monocytes # (Auto) 1.3 0-1.3 10 ^3/uL Eosinophils # (Auto) 0.3 0-0.8 10 ^3/uL Basophils # (Auto) 0 0-0.2 10 ^3/uL Nucleated Red Blood Cells 0.0 % Sodium Level 143 136-145 mmol/L Potassium Level 4.1 3.5-5.1 mmol/L Chloride Level 107 98-107 mmol/L Carbon Dioxide Level 29 20-31 mmol/L Anion Gap 7 5-15 Blood Urea Nitrogen 57 H 9-23 mg/dL Creatinine 1.92 H 0.700-1.30 mg/dL Glomerular Filtration Rate Calc 34 >90 mL/min BUN/Creatinine Ratio 29.7 H 10.0-20.0 Serum Glucose 122 H 74-106 mg/dL Calcium Level 9.9 8.7-10.4 mg/dL PATIENT: JAI FREEMAN ACCT: [id number] UNIT: [id number] : 1940 LOC: ER ROOM / BED: / AGE / SEX: 83 / M ADM STATUS: REG ER SERVICE 17 ORDERING PHYSICIAN: TAJ BOURNE MD PROCEDURE(s): HWOCT - HEAD WITHOUT CONTRAST REASON: weakness ORDER NUMBER(s): [id number], ACCESSION NUMBER(s): [id number] CT HEAD WITHOUT CONTRAST INDICATION: weakness EXAM DATE: 04/27/2024 10:42 PM COMPARISON: CT CT R HIP WITH OUT CONTRAST on DOS: 10/20/22, CT HEAD WITHOUT CONTRAST on DOS: 10/20/22 RADIATION DOSE: CTDIvol: 63 mGy, DLP: 1243 mGy*cm PROCEDURE: CT scans of the head were obtained from the vertex to the skull base. Sagittal and coronal reconstructions were provided. All CT scans at this medical facility are performed using dose modulation tech niques as appropriate to a performed exam including the following: Automated exposure control was utilized; adjustment of the MA and/or KV according to patient size; and use of iterative reconstruction technique. FINDINGS: There is sulcal and ventricular prominence. The brain otherwise shows normal morphology and curiel-white matter differentiation, without intracranial hemorrhage, extra-axial fluid collection, mass effect or acute large vessel infarct.The basal cisterns are patent. The skull and visible facial bones are intact. The paranasal sinuses, mastoid air cells and middle ear cavities are well-aerated. The soft tissues of the scalp are unremarkable. IMPRESSION: No acute intracranial abnormality. ORDERING PHYSICIAN: TAJ BOURNE MD PROCEDURE(s): RFOOT - R FOOT 3 VIEW XRAY REASON: right foot pain and redness ORDER NUMBER(s): [id number], ACCESSION NUMBER(s): [id number] XY R FOOT 3 VIEW XRAY, INDICATION: right foot pain and redness TECHNICAL DATA: Frontal, oblique and lateral views were obtained of the right foot. COMPARISON: None FINDINGS: No fracture is identified. Joint spaces are maintained. Alignment is anatomic. The hallux sesamoids appear normal. Soft tissues are within normal limits. IMPRESSION: No acute fracture or dislocation of the right foot. ORDERING PHYSICIAN: TAJ BOURNE MD PROCEDURE(s): CXRP - CHEST PORTABLE REASON: weakness ORDER NUMBER(s): [id number], ACCESSION NUMBER(s): [id number] XY CHEST PORTABLE, HISTORY: weakness COMPARISON: XY CHEST PORTABLE on DOS: 04/07/23 XY CHEST PORTABLE on DOS: 04/07/23 TECHNICAL DATA: 1 view of the chest was obtained. FINDINGS: Lines and tubes: A cardiac pacer is seen. A valve prosthesis is seen. Cardiomediastinal silhouette: Enlarged Pulmonary vasculature: Prominent Lung expansion: normal Lung airspace: normal Lung interstitium: Increased Pleura: normal Pneumothorax: no Bones: Unremarkable Other: no IMPRESSION: Cardiomegaly with interstitial pulmonary edema. Assessment/Plan Assessment/Plan Cellulitis of foot, right Generalized weakness Pulmonary edema Acute on chronic renal failure Elevated troponin Leukocytosis, unspecified Acute exacerbation of congestive heart failure Plan 1. Admit to telemetry unit 2. Breathing treatment 3. Pain control management 4. IV antibiotic management 5. Management of fluids and electrolytes 6. Consultation for Nephrology/cardiology 7. Diagnostic test chest x-ray 8. DVT prophylaxis on aspirin 9. Repeat labs CBC, CMP in a.m. 10. Home medication reviewed and reconciled 11. Continue with current medical management 12. Treatment plan discussed with patient and RN. Patient verbalized understanding. Plan discussed with: Patient, Other (RN) My Orders Orders - CATALINA RITCHIE DNP Procedure Category Date Status Time * Cardiology Consult CONS 04/28/24 Transmitted 01:43 *[facility] CONS 04/28/24 Transmitted -[place] 01:43 Vancomycin Per PHA 04/28/24 Logged Pharmacy 01:45 Blood Culture PETE 04/28/24 In Process 01:43 Ceftriaxone 1gm/50ml PHA 04/28/24 In Process D5w (Rocephin) 09:00 Troponin-I Hs LAB 04/28/24 Logged 04:43 Troponin-I Hs LAB 04/28/24 Logged 08:30 Furosemide Injection PHA 04/28/24 In Process (Lasix Injection) 10:00 Atorvastatin (Lipitor) PHA 04/28/24 In Process 22:00 Famotidine Injection PHA 04/28/24 In Process (Pepcid Injection) 10:00 Consistent DIET 04/28/24 Transmitted Carb(Ccho)Diabetes Breakfast Apixaban (Eliquis) PHA 04/28/24 Logged 10:00 Glucose Blood PHA 04/28/24 In Process (Accu-Chek Comfort 07:00 Insulin R (Human) PHA 04/28/24 In Process (Insulin R) 07:00 Dextrose 50% Syringe PHA 04/28/24 In Process 01:45 Allergies NAREN 04/28/24 In Process 01:43 Code Status CODE 04/28/24 Transmitted 01:43 Sodium Chloride Lock PHA 04/28/24 In Process (Saline Lock Ns) 06:00 Oxygen Per Hour RT 04/28/24 Transmitted 01:43 Hydrocodone-Acet PHA 04/28/24 In Process 5/325mg Tab ([place] 01:45 Ondansetron Hcl PHA 04/28/24 In Process (Zofran) 01:45 Docusate Sodium PHA 04/28/24 In Process Capsule (Colace 01:45 Fall Risk Precautions NAREN 04/28/[address] 01:43 Complete Blood Count LAB 04/29/24 Verified 04:00 Comprehensive LAB 04/29/24 Verified Metabolic Panel 04:00 Echo 2d Mode Cardiac US 04/28/24 Logged DOP 01:43 Condition: Serious NAREN 04/28/24 In Process 01:43 Acetaminophen Tablet PHA 04/28/24 In Process (Tylenol Tablet) 01:45 Sequential NAREN 04/28/24 In Process Compression Device Albuterol Medneb PHA 04/28/24 In Process (Ventolin Medneb) 01:45 Ipratropium Medneb PHA 04/28/24 In Process (Atrovent Medneb) 01:45 Complete Blood Count LAB 04/28/24 Logged 04:00 Comprehensive LAB 04/28/24 Logged Metabolic Panel 04:00 Aspirin Tablet PHA 04/29/24 Logged 10:00 Admit ADMIT 04/28/24 Verified 03:38 Nitroglycerin [facility] 04/28/24 Verified Sublingual (Ntrostat 03:45 Morphine Sulfate [facility] 04/28/24 Verified Injection 03:45 Notify Md Of Changes [facility] 04/28/24 Verified From Base 03:38 Treating Engineer For [facility] 04/28/24 Verified 24 Hours 03:38 Emergency Dysrhythmia [facility] 04/28/24 Verified Protocol 03:38 Rhythm Strips Once [facility] 04/28/24 Verified Every Shift 03:38 Oxygen By Nasal RT 04/28/24 Verified Cannula 03:38 Problem List: (1) Cellulitis of foot, right (2) Generalized weakness (3) Elevated troponin (4) Pulmonary edema (5) Leukocytosis, unspecified (6) Acute on chronic renal failure (7) Acute exacerbation of congestive heart failure Date of Service: Apr 28, 2024 Billing Provider: CATALINA RITCHIE DNP Common Visit Codes: [id number] INP/OBS CARE (HIGH) CATALINA RITCHIE DNP Apr 28, 2024 03:39
[2024-04-28] MEDS ORDERED: MORPHINE SULFATE INJ 2 MG/ml SYRG IV PRN (03:45)
[2024-04-28] MEDS ORDERED: NITROGLYCERIN 0.4 MG SL TAB SL PRN (03:45)
[2024-04-28] MEDS: SODIUM CHLOR 0.9% PF (SALINE LOCK) 10ML VIAL/SYR IV SCH (06:02)
[2024-04-28 06:13] LABS: Basophils # (auto) 0 10 ^3/uL (0-0.2); Basophils % (auto) 0.2 % (0.0-2.0); Eosinophils # (auto) 0.3 10 ^3/uL (0-0.8); Eosinophils % (auto) 1.6 % (0.0-7.0); Hematocrit 38.4 % (41.0-53.0); Hemoglobin 12.8 g/dL (13.5-17.5); Lymphocytes # (auto) 0.8 10 ^3/uL (0.4-5.4); Lymphocytes % (auto) 4.8 % (10.0-50.0); Mean Corpuscular Hemoglobin 30.2 pg (28.0-32.0); Mean Corpuscular Hgb Conc. 33.3 g/dL (32.0-36.0); Mean Corpuscular Volume 90.7 fL (80.0-100.0); Monocytes # (auto) 1.5 10 ^3/uL (0-1.3); Monocytes % (auto) 8.5 % (0.0-12.0); Neutrophils # (auto) 14.9 10 ^3/uL (1.6-8.6); Neutrophils % (auto) 84.9 % (37.0-80.0); Platelet Count (auto) 224 10^3/uL (140-450); Red Blood Cells 4.23 10^6/uL (4.5-5.90); Red Cell Distribution Width 19.6 % (11.8-14.3); White Blood Cell 17.6 10^3/uL (4.4-10.8)
[2024-04-28 06:27] LABS: Alanine Aminotransferase 19 U/L (7-40); Albumin 3.8 g/dL (3.2-4.8); Alkaline Phosphatase 65 U/L (46-116); Anion Gap 9 (5-15); Aspartate Aminotransferase 17 U/L (13-40); BUN/Creatinine Ratio 25.4 (10.0-20.0); Calcium 10.2 mg/dL (8.7-10.4); Carbon Dioxide 26 mmol/L (20-31); Chloride 107 mmol/L (98-107); Sodium 142 mmol/L (136-145)
[2024-04-28 06:28] LABS: Bilirubin, Total 0.8 mg/dL (0.2-1.0); Blood Urea Nitrogen 45 mg/dL (9-23); Glucose 130 mg/dL (74-106); Potassium 3.4 mmol/L (3.5-5.1); Total Protein 6.1 g/dL (5.7-8.2)
[2024-04-28] MEDS: InsuLIN REG 1unit/0.01ml Soln (100units/ml) SC SCH (07:38)
[2024-04-28] MEDS: ACCU-CHEK COMFORT CURVE STRIP VI SCH (07:38)
[2024-04-28] MEDS: cefTRIAXone 1GM/50ML D5W 50 ML IV SCH (08:59)
[2024-04-28] MEDS: FUROSEMIDE 40 MG/4 ML VIAL IV SCH (10:15)
[2024-04-28] MEDS: FAMOTIDINE (10MG/ML) 2ML VL IV SCH (10:15)
[2024-04-28] MEDS: APIXABAN 2.5 MG TAB PO SCH (11:40)
--- NOTE | 2024-04-28 13:03 | DVHINCON2 ---
Date Seen: Apr 28, 2024 Referring Physician Maggie Reason for Consultation Elevated Troponin History of Present Illness 83-year-old male with PMH for nonrheumatic aortic stenosis s/p recent TAVR on 10/03/2023, implantation of biventricular pacemaker 10/08/2023, CKD, persistent atrial fibrillation, seizure, combined systolic and diastolic HF, CKD, CAD s/p stent, ischemic cardiomyopathy, and stroke presented to the hospital for generalized weakness , altered level consciousness, and right lower extremity redness and pain. Apparently patient was not feeling well and had a petite mal seizure for which family noted was not returning back to baseline therefore called EMS. Patient states that he has been having increased swelling redness and pain to his right foot for which he states he has been treated for cellulitis with antibiotics in the past. Upon evaluation in the ER CT head negative, CXR showed cardiomegaly with interstitial pulmonary edema. ProBNP 752. Troponins positive trending 324, 332, 336, 387, 409. Patient denies chest pain or shortness of breath. Past Medical History CHF HTN ME CAD s/p stent Nonrheumatic aortic stenosis s/p TAVR Atrial fibrillation Presence of bi V ICD Seizure CKD Past Surgical History Cardiac catheterization 06/20/2023 noting widely patent LAD stent with 95% ostial stenosis to diagonal 1 unchanged from previous angiogram being medically managed. 60% proximal circ nonobstructive CAD. TAVR with 29 mm Galarza S3 on 10/03/2023 Biventricular pacemaker 10/08/2023 Family History: Alcoholism G8 FATHER Chronic obstructive pulmonary disease G8 FATHER Diabetes mellitus G8 MOTHER Social History Denies alcohol, tobacco, or illicit drug use. Allergies: Coded Allergies: Sulfa Antibiotics (Verified Allergy, Unknown, 04/07/23) Home Meds Active Scripts Azithromycin (Zithromax Z-Mikie) 250 Mg Tab, 250 MG PO DAILY, #6 TAB Prov:ORVILLE FRANKS MD 04/10/23 Methylprednisolone (Medrol Dosepak) 4 Mg Mikie, 4 MG PO UD, #21 TAB UAD Prov:ORVILLE FRANKS MD 04/10/23 Hydrocodone-Acetaminophen (Hydrocodone Bitartrate/AC 5-325 mg) 1 Tab Tab, 1 TAB PO BID, #14 TAB Prov:KELLIE MARIE 10/20/22 Reported Medications Gabapentin (Gabapentin) 300 Mg Cap, 300 MG PO DAILY for 30 Days, MG 04/07/23 Allopurinol (Allopurinol) 100 Mg Tab, 100 MG PO DAILY for 30 Days, MG 04/07/23 Cholecalciferol (VITAMIN D3) 2,000 Unit Tab, 2000 UNIT PO DAILY, TAB 04/07/23 Potassium Gluconate (Potassium) 595 Mg Tab, 8 MEQ PO DAILY, TAB 04/07/23 Meclizine Hcl (Meclizine Hcl) 25 Mg Tab, 25 MG PO BIDP PRN for DIZZINESS for 30 Days, MG 04/07/23 Famotidine In Nacl (Famotidine) 20 Mg/50 M Inj, 40 MG PO, INJ 04/07/23 Atorvastatin Calcium (Lipitor) 40 Mg Tab, 1 TAB PO QPM, #90 TAB 1 Refill 04/07/23 Ferrous Sulfate (Ferrous Sulfate) 325 Mg Tab, 325 MG PO EOD for 30 Days, MG 04/07/23 Spironolactone (Spironolactone) 25 Mg Tab, 1 TAB PO DAILY, #90 TAB 1 Refill 04/07/23 Furosemide (Furosemide) 20 Mg Tab, 20 MG PO BIDD for 30 Days, MG 04/07/23 Cinacalcet Hydrochloride (Sensipar) 30 Mg Tab, 60 MG PO DAILY, TAB 04/07/23 Empagliflozin (Jardiance) 25 Mg Tab, 25 MG PO DAILY, TAB 04/07/23 Semaglutide (Ozempic 8 mg/3Ml) 1 Inj Inj, 0.5 INJ SC QWEEKLY, INJ 04/07/23 Apixaban Base (ELIQUIS) 2.5 Mg Tab, 2.5 MG PO BID, TAB 04/07/23 Aspirin (Aspirin) 81 Mg Chw, 81 MG PO DAILY, TAB.CHEW 04/07/23 Ipratropium [place] (Ipratropium [place]) 0.03 % Spr, 0.2 % NA QID, SPRAY 04/07/23 Albuterol Sulfate (Albuterol Sulfate) 2 Mg Tab, 2 MG PO Q6HP, MG 04/07/23 Current Medications Current Medications Medications (Trade) Dose Ordered Sig/Brandi Route PRN Reason Start Time Stop Time Status Last Admin Vancomycin HCl 0 ml @ 0 mls/hr UD IV 04/28/24 01:45 UNV Aspirin 81 mg DAILY PO 04/29/24 10:00 Ceftriaxone Sodium 50 ml @ 100 mls/hr DAILY@09 IV 04/28/24 09:00 04/28/24 08:59 Furosemide (Lasix Injection) 40 mg DAILY IV 04/28/24 10:00 04/28/24 10:15 Atorvastatin Calcium (Lipitor) 20 mg HS PO 04/28/24 22:00 Famotidine (Pepcid Injection) 20 mg DAILY IV 04/28/24 10:00 04/28/24 10:15 Apixaban (Eliquis) 2.5 mg BID PO 04/28/24 10:00 04/28/24 11:40 Diagnostic Test (Pha) (Accu-Chek Comfort Curve T) 1 strip ACHS 04/28/24 07:00 04/28/24 11:48 Insulin Human Regular (InsuLIN R) ACHS SC 04/28/24 07:00 04/28/24 11:58 Dextrose 50 ml UD PRN IV Blood Sugar LESS THAN 60 04/28/24 01:45 Sodium Chloride (Saline Lock Ns) 10 ml Q8HR IV 04/28/24 06:00 04/28/24 06:02 Acetaminophen/ Hydrocodone Bitart ([place] 5/325MG Tab) 1 tab Q4HP PRN PO MODERATE PAIN (4-6 PAIN SCALE) 04/28/24 01:45 Ondansetron HCl (Zofran) 4 mg Q4HP PRN IV NAUSEA / VOMITING 04/28/24 01:45 Docusate Sodium (Colace Capsule) 100 mg BIDPRN PRN PO FOR CONSTIPATION 04/28/24 01:45 Acetaminophen (Tylenol Tablet) 650 mg Q6HP PRN PO PAIN SCALE 1-3 OR TEMP>100.4 04/28/24 01:45 Albuterol (Ventolin Medneb) 2.5 mg Q4HPRN PRN NEB SHORTNESS OF BREATH 04/28/24 01:45 Ipratropium [place] (Atrovent Medneb) 0.5 mg Q4HPRN PRN NEB SHORTNESS OF BREATH 04/28/24 01:45 Nitroglycerin (Ntrostat Sublingual) 0.4 mg Q5MINP PRN SL FOR CHEST PAIN 04/28/24 03:45 Morphine Sulfate 2 mg Q30M PRN IV FOR CHEST PAIN 04/28/24 03:45 Review of Systems Constitutional: No: Fever, Chills, Sweats, Weakness, Malaise, Other Eyes: No: Pain, Vision change, Conjunctivae inflammation, Eyelid inflammation, Other, Redness ENT: No: Ear pain, Ear discharge, Nose pain, Nose discharge, Nose congestion, Mouth pain, Mouth swelling, Throat pain, Throat swelling, Other Respiratory: No: Cough, Dry, Shortness of breath, SOB with exertion, Wheezing, Hemoptysis, Pleuritic Pain, Sputum, Wheezing, Other Cardiovascular: ; No: Chest Pain Palpitations, Orthopnea, Paroxysmal Noc. Dyspnea, Edema, Lt Headedness, Other Gastrointestinal: No: Nausea, Vomiting, Abdominal Pain, Diarrhea, Constipation, Melena, Hematochezia, Other Genitourinary: No Dysuria, No Frequency, No Incontinence, No Hematuria, No Retention, No Other Musculoskeletal: neck pain; No: other, shoulder pain, arm pain, back pain, hand pain, leg pain, positive: foot pain Skin: No: Rash, Lesions, Jaundice, Bruising, Other Neurological: Other (Dizziness, headache.); No: Weakness, Numbness, Incoordination, Change in speech, Confusion, positive: Seizures Vital Signs Vital Signs Date Time Temp Pulse Resp B/P (MAP) Pulse Ox O2 Delivery O2 Flow Rate FiO2 04/28/24 11:35 70 04/28/24 10:15 122/64 04/28/24 10:00 11 95 04/28/24 09:46 Nasal Cannula 1.0 04/28/24 09:46 24 04/28/24 02:34 98.4 98.4 Physical Exam General appearance: Patient is well-developed, well-nourished, in no acute distress. HEENT: Exam shows: Normocephalic, atraumatic, PERRLA, EOMI Neck: Supple, no bruits Chest: Equal chest excursion bilaterally. Breath sounds rales/diminished. Heart: Rhythm: Irregular rate; V paced no murmur or gallop Abdomen: Exam shows: Soft, nontender, nondistended Musculoskeletal: No clubbing, no cyanosis, no lower extremity edema Dermatology: Skin warm, moist. Neurological: Exam shows: Alert and oriented x3, normal speech Available prior records, labs, EKG, rhythm strips reviewed and interpreted Labs/Diagnostic Data Labs Test 04/28/24 11:42 04/28/24 09:00 04/28/24 05:15 04/28/24 02:16 Range/Units POC Glucose 229 H 70-106 mg/dl Troponin I High Sensitivity 409 *H </=54 ng/L White Blood Count 17.6 H 4.4-10.8 10^3/uL Red Blood Count 4.23 L 4.5-5.90 10^6/uL Hemoglobin 12.8 L 13.5-17.5 g/dL Hematocrit 38.4 L 41.0-53.0 % Mean Corpuscular Volume 90.7 80.0-100.0 fL Mean Corpuscular Hemoglobin 30.2 28.0-32.0 pg Mean Corpuscular Hemoglobin Concent 33.3 32.0-36.0 g/dL Red Cell Distribution Width 19.6 H 11.8-14.3 % Platelet Count 224 140-450 10^3/uL Mean Platelet Volume 8.4 6.9-10.8 fL Neutrophils (%) (Auto) 84.9 H 37.0-80.0 % Lymphocytes (%) (Auto) 4.8 L 10.0-50.0 % Monocytes (%) (Auto) 8.5 0.0-12.0 % Eosinophils (%) (Auto) 1.6 0.0-7.0 % Basophils (%) (Auto) 0.2 0.0-2.0 % Neutrophils # (Auto) 14.9 H 1.6-8.6 10 ^3/uL Lymphocytes # (Auto) 0.8 0.4-5.4 10 ^3/uL Monocytes # (Auto) 1.5 H 0-1.3 10 ^3/uL Eosinophils # (Auto) 0.3 0-0.8 10 ^3/uL Basophils # (Auto) 0 0-0.2 10 ^3/uL Nucleated Red Blood Cells 0.0 % Sodium Level 142 136-145 mmol/L Potassium Level 3.4 L 3.5-5.1 mmol/L Chloride Level 107 98-107 mmol/L Carbon Dioxide Level 26 20-31 mmol/L Anion Gap 9 5-15 Blood Urea Nitrogen 45 #H 9-23 mg/dL Creatinine 1.77 H 0.700-1.30 mg/dL Glomerular Filtration Rate Calc 38 >90 mL/min BUN/Creatinine Ratio 25.4 H 10.0-20.0 Serum Glucose 130 H 74-106 mg/dL Calcium Level 10.2 8.7-10.4 mg/dL Total Bilirubin 0.8 0.2-1.0 mg/dL Aspartate Amino Transferase (AST) 17 13-40 U/L Alanine Aminotransferase (ALT) 19 7-40 U/L Alkaline Phosphatase 65 46-116 U/L Total Protein 6.1 5.7-8.2 g/dL Albumin 3.8 3.2-4.8 g/dL Lactic Acid Level 1.4 0.4-2.0 mmol/L B-Type Natriuretic Peptide 752.30 0-100 pg/mL Test 04/27/24 23:30 Range/Units Urine Color Light-yellow Yellow Urine Clarity Clear Clear Urine pH 5.5 5.0-9.0 Urine Specific [place] 1.014 1.001-1.035 Urine Protein Trace H Negative Urine Ketones Negative Negative Urine Blood Negative Negative /uL Urine Nitrite Negative Negative Urine Bilirubin Negative Negative Urine Urobilinogen Normal Negative mg/dL Urine Leukocyte Esterase Negative Negative /uL Urine RBC None seen 0 - 3 /hpf Urine WBC <1 0 - 3 /hpf Urine Squamous Epithelial Cells None seen <5 /hpf Urine Bacteria None seen None Seen /hpf Urine Glucose 4+ H Normal mg/dL Assessment * Mildly elevated troponin - denies chest pain. Continue aspirin and statin. Likely demand ischemia. Follow-up echo. Patient with known CAD being medically managed. * Acute on chronic combined systolic and diastolic HF - Lasix 40 mg IV daily. Monitor strict I&Os. Follow-up echo. * CAD s/p stent - continue aspirin and statin. * Ischemic cardiomyopathy - previous EF 40%, follow-up echo. Continue EGD MT as tolerated. * Chronic atrial fibrillation - continue rate control. On Eliquis for stroke prophylaxis. * Presence of Bi V pacemaker - interrogation. * RYAN and CKD - monitor response to diuresis. * Cellulitis of right foot - on empiric antibiotics, management per primary team. Arterial Doppler pending. * Encephalopathy, possible seizure - resolved. CT head negative. Device interrogation arrhythmias. Case Discussed with Dr Bocanegra. Elevated troponin likely type 2 ME. Continue medical management. Encephalopathy with possible seizure. Device interrogation rule out arrhythmias. Continue GDMT for ischemic cardiomyopathy follow-up echo. Critical care, time spent: 43 minutes This medical document was created using an electronic medical record system with voice recognition software and computerized dictation system. Although this document has been carefully reviewed, there might still be some phonetic and typographical errors. Occasional wrong-word or ``sound-alike substitutions may have occurred due to the inherent limitations of voice recognition software. These areas are purely typographical due to imperfections of the software programs and do not reflect any compromise in the patient's medical care. Please read the chart carefully and recognize, using context, where these substitutions have occurred. Thank you for allowing to participate in the management of this patient. The treatment plan was discussed with and agreed upon by patient/family including requesting consultants and ordering of imaging/procedures. Plan discussed with: Patient Date of Service: Apr 28, 2024 Billing Provider: GHISLAINE BOCANEGRA MD Cardiology Common Codes: 44932-ECDUMVA INP/OBS CARE (High), 19443-[id number] CARE 30-74 MIN GUILLERMO DEL CID AGACNP Apr 28, 2024 13:03
--- NOTE | 2024-04-28 13:46 | DVHSR ---
APPROVED REPORT EXAM: LIMITED Two-dimensional and M-mode echocardiogram with Doppler and color Doppler. Blood Pressure: 124/62 mmHg INDICATION History of CHF Surgery/Intervention Valve Replacement: Type: TAVR RISK FACTORS Height: 5' 11", Weight: 210 DIMENSIONS LVDd4.2 (3.8-5.7cm)LA (2D)4.7 (1.9-4.0cm)Aortic Root (2.0-3.7cm) LVDs3.7 (2.5-4.0cm)LA (MM) (1.9-4.0cm)Aortic Cusp Exc (1.5-2.0cm) EF (%) 30.0 (55-70%)Rt. Atrium4.9 (1.9-4.0cm)Asc. Aorta cm IVSd1.9 (0.7-1.1cm)RV (D) (1.8-2.4cm) PWd1.7 (0.7-1.1cm) Mitral Valve MitralMitral Stenosis E wave1.10m/sMV Mean GR.mmHg E/A ratio0.02D MVAcm2 Aortic Valve Aortic ValveAortic Stenosis V10.90m/Fabriec Mean GR.8mmHg V21.80m/Fabrice Peak GR.13mmHg LVOT Diameter2.4 (1.8-2.4cm)Doppler AVA2.26cm2 Tricuspid Valve TR Velocity2.40m/s [id number] Other Information Quality : Technically LimitedRhythm : Technically limited study due to body habitus. Conclusion Moderately severe concentric left ventricular hypertrophy. There is a profound bradycardia with a ov erall preserved left ventricular systolic function at 50%. There is a grade 1 diastolic dysfunction. Normal right ventricular size and dimension. Normal right ventricular systolic function. Slightly i ncreased right ventricular systolic pressure at 30 mm of mercury. Borderline dilated right and left atria. The aortic valve is thickened and sclerotic no significant stenosis or regurgitation was noted. The mitral valve has mild mitral annular calcification with normal structure and function. Normal tricuspid valve structure and function. The pulmonary valve is grossly normal. No pericardial effusion.
--- NOTE | 2024-04-28 17:33 | DVHINCON2 ---
Date of service: Apr 28, 2024 Referring Physician Liu Serrano NP Reason for Consultation acute kidney injury History of Present Illness Mr. Moore is 83-year-old male with known history of stage III chronic kidney disease baseline creatinine in the mid 1 range to presented for further evaluation and management of altered mental status. He was seen in the emergency department earlier today was able to participate in history and reported erythema and edema over the right foot, that has improved per his report today. Current consultation requested due to serum creatinine elevated above baseline values. He has been treated with antibiotics, IV fluids. The rest of the history was obtained through the chart. Past Medical History Chronic kidney disease Diabetes Hypertension Coronary disease COPD History of chronic atrialfibrillation Past Surgical History Appendectomy Cholecystectomy pacemaker Allergies: Coded Allergies: Sulfa Antibiotics (Verified Allergy, Unknown, 04/07/23) Home Meds Active Scripts Azithromycin (Zithromax Z-Mikie) 250 Mg Tab, 250 MG PO DAILY, #6 TAB Prov:ORVILLE FRANKS MD 04/10/23 Methylprednisolone (Medrol Dosepak) 4 Mg Mikie, 4 MG PO UD, #21 TAB UAD Prov:ORVILLE FRANKS MD 04/10/23 Hydrocodone-Acetaminophen (Hydrocodone Bitartrate/AC 5-325 mg) 1 Tab Tab, 1 TAB PO BID, #14 TAB Prov:KELLIE MARIE 10/20/22 Reported Medications Gabapentin (Gabapentin) 300 Mg Cap, 300 MG PO DAILY for 30 Days, MG 04/07/23 Allopurinol (Allopurinol) 100 Mg Tab, 100 MG PO DAILY for 30 Days, MG 04/07/23 Cholecalciferol (VITAMIN D3) 2,000 Unit Tab, 2000 UNIT PO DAILY, TAB 04/07/23 Potassium Gluconate (Potassium) 595 Mg Tab, 8 MEQ PO DAILY, TAB 04/07/23 Meclizine Hcl (Meclizine Hcl) 25 Mg Tab, 25 MG PO BIDP PRN for DIZZINESS for 30 Days, MG 04/07/23 Famotidine In Nacl (Famotidine) 20 Mg/50 M Inj, 40 MG PO, INJ 04/07/23 Atorvastatin Calcium (Lipitor) 40 Mg Tab, 1 TAB PO QPM, #90 TAB 1 Refill 04/07/23 Ferrous Sulfate (Ferrous Sulfate) 325 Mg Tab, 325 MG PO EOD for 30 Days, MG 04/07/23 Spironolactone (Spironolactone) 25 Mg Tab, 1 TAB PO DAILY, #90 TAB 1 Refill 04/07/23 Furosemide (Furosemide) 20 Mg Tab, 20 MG PO BIDD for 30 Days, MG 04/07/23 Cinacalcet Hydrochloride (Sensipar) 30 Mg Tab, 60 MG PO DAILY, TAB 04/07/23 Empagliflozin (Jardiance) 25 Mg Tab, 25 MG PO DAILY, TAB 04/07/23 Semaglutide (Ozempic 8 mg/3Ml) 1 Inj Inj, 0.5 INJ SC QWEEKLY, INJ 04/07/23 Apixaban Base (ELIQUIS) 2.5 Mg Tab, 2.5 MG PO BID, TAB 04/07/23 Aspirin (Aspirin) 81 Mg Chw, 81 MG PO DAILY, TAB.CHEW 04/07/23 Ipratropium [place] (Ipratropium [place]) 0.03 % Spr, 0.2 % NA QID, SPRAY 04/07/23 Albuterol Sulfate (Albuterol Sulfate) 2 Mg Tab, 2 MG PO Q6HP, MG 04/07/23 Current Medications Current Medications Medications (Trade) Dose Ordered Sig/Brandi Route PRN Reason Start Time Stop Time Status Last Admin Vancomycin HCl 0 ml @ 0 mls/hr UD IV 04/28/24 01:45 UNV Aspirin 81 mg DAILY PO 04/29/24 10:00 Ceftriaxone Sodium 50 ml @ 100 mls/hr DAILY@09 IV 04/28/24 09:00 04/28/24 08:59 Furosemide (Lasix Injection) 40 mg DAILY IV 04/28/24 10:00 04/28/24 10:15 Atorvastatin Calcium (Lipitor) 20 mg HS PO 04/28/24 22:00 Famotidine (Pepcid Injection) 20 mg DAILY IV 04/28/24 10:00 04/28/24 10:15 Apixaban (Eliquis) 2.5 mg BID PO 04/28/24 10:00 04/28/24 11:40 Diagnostic Test (Pha) (Accu-Chek Comfort Curve T) 1 strip ACHS 04/28/24 07:00 04/28/24 17:03 Insulin Human Regular (InsuLIN R) ACHS SC 04/28/24 07:00 04/28/24 17:23 Dextrose 50 ml UD PRN IV Blood Sugar LESS THAN 60 04/28/24 01:45 Sodium Chloride (Saline Lock Ns) 10 ml Q8HR IV 04/28/24 06:00 04/28/24 14:10 Acetaminophen/ Hydrocodone Bitart ([place] 5/325MG Tab) 1 tab Q4HP PRN PO MODERATE PAIN (4-6 PAIN SCALE) 04/28/24 01:45 Ondansetron HCl (Zofran) 4 mg Q4HP PRN IV NAUSEA / VOMITING 04/28/24 01:45 Docusate Sodium (Colace Capsule) 100 mg BIDPRN PRN PO FOR CONSTIPATION 04/28/24 01:45 Acetaminophen (Tylenol Tablet) 650 mg Q6HP PRN PO PAIN SCALE 1-3 OR TEMP>100.4 04/28/24 01:45 Albuterol (Ventolin Medneb) 2.5 mg Q4HPRN PRN NEB SHORTNESS OF BREATH 04/28/24 01:45 Ipratropium [place] (Atrovent Medneb) 0.5 mg Q4HPRN PRN NEB SHORTNESS OF BREATH 04/28/24 01:45 Nitroglycerin (Ntrostat Sublingual) 0.4 mg Q5MINP PRN SL FOR CHEST PAIN 04/28/24 03:45 Morphine Sulfate 2 mg Q30M PRN IV FOR CHEST PAIN 04/28/24 03:45 Family History: Alcoholism G8 FATHER Chronic obstructive pulmonary disease G8 FATHER Diabetes mellitus G8 MOTHER Review of Systems as per history of present illness otherwise all systems are reviewed and are noncontributory. H&P Exam Vital Signs/I&O Vital Sign Date Time Temp Pulse Resp B/P (MAP) Pulse Ox O2 Delivery O2 Flow Rate FiO2 04/28/24 16:00 70 17 145/64 (91) 96 04/28/24 09:46 Nasal Cannula 1.0 04/28/24 09:46 24 04/28/24 02:34 98.4 98.4 Physical Exam gen: appears stated age heent: nc lungs: cta cvs: no rub, irr abd: soft ext: trace edema skin: no petechiae neuro: awake and alert Labs/Diagnostic Data Labs/Diagnostic Data Laboratory Tests Test 04/28/24 11:42 04/28/24 09:00 04/28/24 07:36 04/28/24 05:15 Range/Units POC Glucose 229 H 124 H 70-106 mg/dl Troponin I High Sensitivity 409 *H 387 *H </=54 ng/L White Blood Count 17.6 H 4.4-10.8 10^3/uL Red Blood Count 4.23 L 4.5-5.90 10^6/uL Hemoglobin 12.8 L 13.5-17.5 g/dL Hematocrit 38.4 L 41.0-53.0 % Mean Corpuscular Volume 90.7 80.0-100.0 fL Mean Corpuscular Hemoglobin 30.2 28.0-32.0 pg Mean Corpuscular Hemoglobin Concent 33.3 32.0-36.0 g/dL Red Cell Distribution Width 19.6 H 11.8-14.3 % Platelet Count 224 140-450 10^3/uL Mean Platelet Volume 8.4 6.9-10.8 fL Neutrophils (%) (Auto) 84.9 H 37.0-80.0 % Lymphocytes (%) (Auto) 4.8 L 10.0-50.0 % Monocytes (%) (Auto) 8.5 0.0-12.0 % Eosinophils (%) (Auto) 1.6 0.0-7.0 % Basophils (%) (Auto) 0.2 0.0-2.0 % Neutrophils # (Auto) 14.9 H 1.6-8.6 10 ^3/uL Lymphocytes # (Auto) 0.8 0.4-5.4 10 ^3/uL Monocytes # (Auto) 1.5 H 0-1.3 10 ^3/uL Eosinophils # (Auto) 0.3 0-0.8 10 ^3/uL Basophils # (Auto) 0 0-0.2 10 ^3/uL Nucleated Red Blood Cells 0.0 % Sodium Level 142 136-145 mmol/L Potassium Level 3.4 L 3.5-5.1 mmol/L Chloride Level 107 98-107 mmol/L Carbon Dioxide Level 26 20-31 mmol/L Anion Gap 9 5-15 Blood Urea Nitrogen 45 #H 9-23 mg/dL Creatinine 1.77 H 0.700-1.30 mg/dL Glomerular Filtration Rate Calc 38 >90 mL/min BUN/Creatinine Ratio 25.4 H 10.0-20.0 Serum Glucose 130 H 74-106 mg/dL Calcium Level 10.2 8.7-10.4 mg/dL Total Bilirubin 0.8 0.2-1.0 mg/dL Aspartate Amino Transferase (AST) 17 13-40 U/L Alanine Aminotransferase (ALT) 19 7-40 U/L Alkaline Phosphatase 65 46-116 U/L Total Protein 6.1 5.7-8.2 g/dL Albumin 3.8 3.2-4.8 g/dL Test 04/28/24 02:16 04/28/24 00:20 04/27/24 23:30 04/27/24 22:29 Range/Units Lactic Acid Level 1.4 0.4-2.0 mmol/L B-Type Natriuretic Peptide 752.30 0-100 pg/mL Troponin I High Sensitivity 336 *H 332 *H </=54 ng/L Urine Color Light-yellow Yellow Urine Clarity Clear Clear Urine pH 5.5 5.0-9.0 Urine Specific [place] 1.014 1.001-1.035 Urine Protein Trace H Negative Urine Ketones Negative Negative Urine Blood Negative Negative /uL Urine Nitrite Negative Negative Urine Bilirubin Negative Negative Urine Urobilinogen Normal Negative mg/dL Urine Leukocyte Esterase Negative Negative /uL Urine RBC None seen 0 - 3 /hpf Urine WBC <1 0 - 3 /hpf Urine Squamous Epithelial Cells None seen <5 /hpf Urine Bacteria None seen None Seen /hpf Urine Glucose 4+ H Normal mg/dL Test 04/27/24 21:31 Range/Units White Blood Count 15.5 H 4.4-10.8 10^3/uL Red Blood Count 4.20 L 4.5-5.90 10^6/uL Hemoglobin 12.4 L 13.5-17.5 g/dL Hematocrit 38.7 L 41.0-53.0 % Mean Corpuscular Volume 92.1 80.0-100.0 fL Mean Corpuscular Hemoglobin 29.4 28.0-32.0 pg Mean Corpuscular Hemoglobin Concent 31.9 L 32.0-36.0 g/dL Red Cell Distribution Width 19.9 H 11.8-14.3 % Platelet Count 215 140-450 10^3/uL Mean Platelet Volume 8.2 6.9-10.8 fL Neutrophils (%) (Auto) 84.2 H 37.0-80.0 % Lymphocytes (%) (Auto) 5.4 L 10.0-50.0 % Monocytes (%) (Auto) 8.2 0.0-12.0 % Eosinophils (%) (Auto) 1.9 0.0-7.0 % Basophils (%) (Auto) 0.3 0.0-2.0 % Neutrophils # (Auto) 13.0 H 1.6-8.6 10 ^3/uL Lymphocytes # (Auto) 0.8 0.4-5.4 10 ^3/uL Monocytes # (Auto) 1.3 0-1.3 10 ^3/uL Eosinophils # (Auto) 0.3 0-0.8 10 ^3/uL Basophils # (Auto) 0 0-0.2 10 ^3/uL Nucleated Red Blood Cells 0.0 % Sodium Level 143 136-145 mmol/L Potassium Level 4.1 3.5-5.1 mmol/L Chloride Level 107 98-107 mmol/L Carbon Dioxide Level 29 20-31 mmol/L Anion Gap 7 5-15 Blood Urea Nitrogen 57 H 9-23 mg/dL Creatinine 1.92 H 0.700-1.30 mg/dL Glomerular Filtration Rate Calc 34 >90 mL/min BUN/Creatinine Ratio 29.7 H 10.0-20.0 Serum Glucose 122 H 74-106 mg/dL Calcium Level 9.9 8.7-10.4 mg/dL Troponin I High Sensitivity 324 *H </=54 ng/L Assessment IMP: 1) Hemodynamically mediated acute kidney injury/ prerenal etiology 2) CKD III possibly secondary to underlying diabetes, HTN, Ischemic nephropathy 3) HTN 4) generalized weakness 5) Hx of PAD REC: - Agree with current plan of care, kidney function has improved with conservative means - We will check urine studies, serial chemistry panels - General recommendations to avoid NSAIDs, or initiation of RAAS inhibition during time course of RYAN - will continue to follow closely along with you. Thank you for the consultation. Plan discussed with: Patient JASWANT PECK MD Apr 28, 2024 17:33
--- NOTE | 2024-04-28 18:27 | ECG ---
[facility] Test Date: 2024-04-27 Test Time: 22:40:12 Pat Name: JAI FREEMAN Department: ED Room: [address] [place] [address] Gender: M [employer]: CELENA : 1940 Requested By: TAJ BOURNE Order Number: [id number] Reading MD: Measurements Intervals [place] Rate: 70 P: 0 DC: 0 QRS: 242 QRSD: 137 T: 89 QT: 435 QTc: 470 Interpretive Statements Afib/flut and V-paced complexes No further analysis attempted due to paced rhythm Please click the below link to view image of tracing.
[2024-04-28] MEDS: ATORVASTATIN 20 MG TAB PO SCH (22:56)
[2024-04-29] MEDS: ALBUTEROL SULF 2.5 MG/0.5ML(0.5%) NEB SOLN NEB PRN (01:48)
[2024-04-29] MEDS: IPRATROPIUM BROM 0.5 MG/2.5ML INH SOL NEB PRN (01:48)
[2024-04-29 06:06] VITALS: PULSE 70; RESP 16; O2SAT 95
[2024-04-29 06:14] VITALS: PULSE 70; RESP 14; O2SAT 100
[2024-04-29 06:32] LABS: Basophils # (auto) 0.1 10 ^3/uL (0-0.2); Basophils % (auto) 0.3 % (0.0-2.0); Eosinophils # (auto) 0.1 10 ^3/uL (0-0.8); Eosinophils % (auto) 0.3 % (0.0-7.0); Hematocrit 38.5 % (41.0-53.0); Hemoglobin 12.7 g/dL (13.5-17.5); Lymphocytes # (auto) 0.7 10 ^3/uL (0.4-5.4); Mean Corpuscular Hemoglobin 30.1 pg (28.0-32.0); Mean Corpuscular Hgb Conc. 33.1 g/dL (32.0-36.0); Mean Corpuscular Volume 90.9 fL (80.0-100.0); Monocytes % (auto) 8.3 % (0.0-12.0); Neutrophils # (auto) 21.3 10 ^3/uL (1.6-8.6); Neutrophils % (auto) 88.1 % (37.0-80.0); Platelet Count (auto) 226 10^3/uL (140-450); Red Blood Cells 4.23 10^6/uL (4.5-5.90); Red Cell Distribution Width 19.2 % (11.8-14.3); White Blood Cell 24.1 10^3/uL (4.4-10.8)
[2024-04-29 06:39] LABS: Alanine Aminotransferase 17 U/L (7-40); Alkaline Phosphatase 58 U/L (46-116); Anion Gap 9 (5-15); BUN/Creatinine Ratio 23.2 (10.0-20.0); Calcium 10.4 mg/dL (8.7-10.4); Carbon Dioxide 27 mmol/L (20-31); Chloride 106 mmol/L (98-107); Sodium 142 mmol/L (136-145)
[2024-04-29 06:40] LABS: Albumin 3.7 g/dL (3.2-4.8); Aspartate Aminotransferase 13 U/L (13-40); Bilirubin, Total 0.9 mg/dL (0.2-1.0); Total Protein 6.1 g/dL (5.7-8.2)
[2024-04-29 06:49] LABS: Blood Urea Nitrogen 41 mg/dL (9-23); Glucose 155 mg/dL (74-106)
[2024-04-29 08:00] VITALS: PULSE 70; RESP 17; TEMP 99.3; O2SAT 92
--- NOTE | 2024-04-29 10:13 | DVHPN2 ---
Subjective 83-year-old male with a history of CKD, CHF, AFib, prior EF of 40%, COPD on home O2, coronary artery disease, type 2 diabetes, aortic stenosis, hypertension comes to the emergency room with chief complaint of right foot swelling and redness He has right foot cellulitis He has acute on chronic heart failure He has generalized weakness my uses a walker at home Changes from previous H/P or p: Changes Eyes: No Pain, No Vision change, No Conjunctivae inflammation, No Eyelid inflammation, No Other, No Redness ENT: No Ear pain, No Ear discharge, No Nose pain, No Nose discharge, No Nose congestion, No Mouth pain, No Mouth swelling, No Throat pain, No Throat swelling, No Other Cardiovascular: No Chest Pain, No Palpitations, No Orthopnea, No Paroxysmal Noc. Dyspnea, No Edema, No Lt Headedness, No Other Respiratory: No Cough, No Dry; Shortness of breath; No SOB with excertion, No Wheezing, No Hemoptysis, No Pleuritic Pain, No Sputum, No Other Gastrointestinal: No Nausea, No Vomiting, No Abdominal Pain, No Diarrhea, No Constipation, No Melena, No Hematochezia, No Other Genitourinary: No Dysuria, No Frequency, No Incontinence, No Hematuria, No Retention, No Other Musculoskeletal: other (right foot swelling and pain ); No neck pain, No shoulder pain, No arm pain, No back pain, No hand pain, No leg pain, No foot pain Skin: No Rash, No Lesions, No Jaundice, No Bruising; Other (right foot redness) Objective Vitals Vital Signs Date Time Temp Pulse Resp B/P (MAP) Pulse Ox O2 Delivery O2 Flow Rate FiO2 04/29/24 08:01 71 04/29/24 08:00 17 92 Room Air* 0 21 04/29/24 08:00 99.3 127/56 (79) 99.3 Intake/Output Intake and Output 04/29/24 07:00 Intake Total 100 ml Output Total 1970 ml Balance -1870 ml Intake IV Total 100 ml Output Urine Total 1970 ml # Voids 2 General Appearance: Alert, Oriented X3, Cooperative Lungs: Other (Bilateral crackles at the bases) Cardiovascular: Regular rate, Normal S1, Normal S2 Abdomen: Normal bowel sounds, Soft, No tenderness Extremities: No edema Medications Current Medications Medications Dose Ordered Sig/Brandi Route Start Time Stop Time Status Last Admin Dose Admin Vancomycin HCl 0 ml @ 0 mls/hr UD IV 04/28/24 01:45 Aspirin 81 mg DAILY PO 04/29/24 10:00 Ceftriaxone Sodium 50 ml @ 100 mls/hr DAILY@09 IV 04/28/24 09:00 04/28/24 08:59 100 MLS/HR Furosemide 40 mg DAILY IV 04/28/24 10:00 04/28/24 10:15 40 MG Atorvastatin Calcium 20 mg HS PO 04/28/24 22:00 04/28/24 22:56 20 MG Famotidine 20 mg DAILY IV 04/28/24 10:00 04/28/24 10:15 20 MG Apixaban 2.5 mg BID PO 04/28/24 10:00 04/28/24 22:56 2.5 MG Diagnostic Test (Pha) 1 strip ACHS 04/28/24 07:00 04/29/24 06:46 1 STRIP Insulin Human Regular ACHS SC 04/28/24 07:00 04/29/24 06:58 3 UNITS Dextrose 50 ml UD PRN IV 04/28/24 01:45 Sodium Chloride 10 ml Q8HR IV 04/28/24 06:00 04/29/24 06:00 10 ML Acetaminophen/ Hydrocodone Bitart 1 tab Q4HP PRN PO 04/28/24 01:45 Ondansetron HCl 4 mg Q4HP PRN IV 04/28/24 01:45 Docusate Sodium 100 mg BIDPRN PRN PO 04/28/24 01:45 Acetaminophen 650 mg Q6HP PRN PO 04/28/24 01:45 Albuterol 2.5 mg Q4HPRN PRN NEB 04/28/24 01:45 04/29/24 06:06 2.5 MG Ipratropium [place] 0.5 mg Q4HPRN PRN NEB 04/28/24 01:45 04/29/24 06:06 0.5 MG Nitroglycerin 0.4 mg Q5MINP PRN SL 04/28/24 03:45 Morphine Sulfate 2 mg Q30M PRN IV 04/28/24 03:45 Laboratory Results Laboratory Tests 04/29/24 05:06 Chemistry Test 04/29/24 05:06 Albumin 3.7 g/dL (3.2-4.8) Calcium Level 10.4 mg/dL (8.7-10.4) Total Protein 6.1 g/dL (5.7-8.2) LFT Test 04/29/24 05:06 Alanine Aminotransferase (ALT) 17 U/L (7-40) Alkaline Phosphatase 58 U/L (46-116) Aspartate Amino Transferase (AST) 13 U/L (13-40) Total Bilirubin 0.9 mg/dL (0.2-1.0) Urinalysis Test 04/27/24 23:30 Urine Color Light-yellow (Yellow) Urine Clarity Clear (Clear) Urine pH 5.5 (5.0-9.0) Urine Specific [place] 1.014 (1.001-1.035) Urine Protein Trace (Negative) H Urine Ketones Negative (Negative) Urine Blood Negative /uL (Negative) Urine Nitrite Negative (Negative) Urine Bilirubin Negative (Negative) Urine Urobilinogen Normal mg/dL (Negative) Urine Leukocyte Esterase Negative /uL (Negative) Urine RBC None seen /hpf (0 - 3) Urine WBC <1 /hpf (0 - 3) Urine Squamous Epithelial Cells None seen /hpf (<5) Urine Bacteria None seen /hpf (None Seen) Urine Glucose 4+ mg/dL (Normal) H Microbiology Microbiology Date/Time Source Procedure Growth Status 04/28/24 02:16 Blood Blood Culture - Preliminary NO GROWTH AFTER 24 HOURS OF INCUBATION. Resulted Assessment/Plan Assessment/Plan Acute on chronic heart failure, rule out systolic heart failure Right foot cellulitis Chronic kidney disease Chronic respiratory failure on home O2 COPD Coronary artery disease Type 2 diabetes Aortic stenosis Hypertension Hypokalemia Sepsis and leukocytosis due to cellulitis Plan Continue IV Lasix To as needed Physical therapy IV antibiotics Rocephin and vancomycin Cardiology consult Repeat an echo showed an ejection fraction of 50% Nephrology consult Replace potassium Continue Eliquis Aspirin Lipitor Full code Plan discussed with: Patient My Orders Orders - ORVILLE FRANKS MD Procedure Category Date Status Time Pt Request For Service PT 04/29/24 Transmitted 10:07 Date of Service: Apr 29, 2024 Billing Provider: ORVILLE FRANKS MD Common Visit Codes: NOT BILLABLE ORVILLE FRANKS MD Apr 29, 2024 10:13
--- NOTE | 2024-04-29 11:05 | DVH ---
BILATERAL LOWER EXTREMITY VENOUS DOPPLER CLINICAL HISTORY: pain Technique: Duplex Doppler evaluation of the deep venous systems of both lower extremities from the co mmon femoral veins to the popliteal veins including color Doppler and spectral/pulsed waveform analys is was performed. COMPARISON: None FINDINGS: The right and left common femoral, superficial femoral, popliteal, posterior tibial veins appear pa tent with normal augmentation, phasicity, compressibility and color-flow. There is a 5.4 x 3.1 cm Janneth er's cyst in the left popliteal fossa. IMPRESSION: 1. There is no sonographic evidence for DVT in the lower extremities. HS:Y
[2024-04-29] MEDS: POTASSIUM CHL 20 Meq TABLET PO ONE (11:16)
[2024-04-29] MEDS: ASPirin 81 mg TAB PO SCH (11:18)
--- NOTE | 2024-04-29 12:26 | DVHPN2 ---
Consult Progress Note Date Seen: Apr 29, 2024 Subjective Review of Systems: CVS:Normal, RESPIRATORY:Abnormal, NEURO:Normal Other Systems: C/o mild SOB Objective vital signs Vital Sign Date Time Temp Pulse Resp B/P (MAP) Pulse Ox O2 Delivery O2 Flow Rate FiO2 04/29/24 12:00 71 13 128/58 (81) 97 04/29/24 08:00 Room Air* 0 21 04/29/24 08:00 99.3 99.3 Total Intake and Output 04/28/24 04/28/24 04/29/24 15:00 23:00 07:00 Intake Total 100 ml Output Total 1450 ml 520 ml Balance -1350 ml -520 ml medications Current Medications Medications Dose Ordered Sig/Brandi Route Start Time Stop Time Status Last Admin Dose Admin Vancomycin HCl 0 ml @ 0 mls/hr UD IV 04/28/24 01:45 Aspirin 81 mg DAILY PO 04/29/24 10:00 04/29/24 11:18 81 MG Ceftriaxone Sodium 50 ml @ 100 mls/hr DAILY@09 IV 04/28/24 09:00 04/29/24 11:16 100 MLS/HR Furosemide 40 mg DAILY IV 04/28/24 10:00 04/29/24 11:17 40 MG Atorvastatin Calcium 20 mg HS PO 04/28/24 22:00 04/28/24 22:56 20 MG Famotidine 20 mg DAILY IV 04/28/24 10:00 04/29/24 11:17 20 MG Apixaban 2.5 mg BID PO 04/28/24 10:00 04/29/24 11:16 2.5 MG Diagnostic Test (Pha) 1 strip ACHS 04/28/24 07:00 04/29/24 11:16 1 STRIP Insulin Human Regular ACHS SC 04/28/24 07:00 04/29/24 11:08 4 UNITS Dextrose 50 ml UD PRN IV 04/28/24 01:45 Sodium Chloride 10 ml Q8HR IV 04/28/24 06:00 04/29/24 06:00 10 ML Acetaminophen/ Hydrocodone Bitart 1 tab Q4HP PRN PO 04/28/24 01:45 Ondansetron HCl 4 mg Q4HP PRN IV 04/28/24 01:45 Docusate Sodium 100 mg BIDPRN PRN PO 04/28/24 01:45 Acetaminophen 650 mg Q6HP PRN PO 04/28/24 01:45 Albuterol 2.5 mg Q4HPRN PRN NEB 04/28/24 01:45 04/29/24 06:06 2.5 MG Ipratropium [place] 0.5 mg Q4HPRN PRN NEB 04/28/24 01:45 04/29/24 06:06 0.5 MG Nitroglycerin 0.4 mg Q5MINP PRN SL 04/28/24 03:45 Morphine Sulfate 2 mg Q30M PRN IV 04/28/24 03:45 Examination: LUNGS:Abnormal (Rales, productive cough), CVS:Normal (V-apced rhythm), NEURO:Normal laboratory and microbiology Laboratory Tests 04/29/24 05:06 Test 04/29/24 05:06 Range/Units Serum Glucose 155 H 74-106 mg/dL Problem List/Assessment/Plan Problem List/Assessment/Plan (Dr. Bocanegra) * Mildly elevated troponin - Denies chest pain, likely demand ischemia. Echocardiogram revealed EF 50%. The aortic valve is thickened and sclerotic with no significant stenosis. The mitral valve has mild mitral annular calcification with normal structure and function. Continue Plavix therapy, BB, and statin. Follow-up echo. Patient with known CAD being medically managed. * Acute on chronic decompensated HFpEF - Lasix 40 mg IV daily. Monitor strict I&Os. Obtain Influenza A&B/COVID-19 samples * Coronary artery disease status post PTCA with two GIANNI in 2020 - continue Plavix, BB, and statin. * Ischemic cardiomyopathy - previous EF 40%, with current echo revealing improved LVEF to 50%. GDMT for CHF with optimal renal function, for now BB. * Chronic atrial fibrillation - continue rate control with BB. On low-dose Eliquis for stroke prophylaxis. Replete electrolytes as necessary, K>4 amd Mg>2. * Presence of Bi-Ventricular pacemaker (Villarreal, 09/2023)- interrogation completed a month ago with Dr. Roberts, unremarkable. * RYAN and CKD - monitor response to diuresis. Consider Nephrology consultation. * Cellulitis of right foot - on empiric antibiotics, management per primary team. Arterial Doppler pending. * Encephalopathy, possible seizure - resolved. CT head negative. Thank you for allowing us to participate in this patient's care. Please call if you have any questions or concerns. This medical document was created using an electronic medical record system with voice recognition software and computerized dictation system. Although this document has been carefully reviewed, there might still be some phonetic and typographical errors. Occasional wrong-word or ``sound-alike substitutions may have occurred due to the inherent limitations of voice recognition software. These areas are purely typographical due to imperfections of the software programs and do not reflect any compromise in the patient's medical care. Please read the chart carefully and recognize, using context, where these substitutions have occurred. Plan discussed with: Patient, Other Date of Service: Apr 29, 2024 Billing Provider: GHISLAINE BOCANEGRA MD Cardiology Common Codes: [id number] [facility]ARE[facility] Urbina [facility] Apr 29, 2024 12:26
[2024-04-29 13:18] LABS: Rapid Influenza A Negative (Negative); Rapid Influenza B Negative (Negative)
[2024-04-29 13:19] LABS: COVID19 ANTIGEN SOFIA FIA NEGATIVE (NEGATIVE)
--- NOTE | 2024-04-29 13:50 | DVH ---
Bilateral Lower Extremity Arterial Duplex Date: 04/29/2024 12:40 PM Clinical History: Pain rule out PVD Comparison: US BILAT LOWER DVT on DOS: 04/29/24 Technique: Duplex Doppler evaluation including color Doppler and spectral/pulsed waveform analysis of the lower extremity arteries was performed. Findings: RIGHT Peak systolic velocities are as follows: [employer] 138 cm/s Deep femoral 57 cm/s SFA proximal 78 cm/s SFA mid-portion 71 cm/s SFA distal 69 cm/s Popliteal 69 cm/s Posterior tibial 74 cm/s Dorsalis pedis 40 cm/s The waveforms are triphasic with diastolic flow. LEFT Peak systolic velocities are as follows: [employer] 142 cm/s Deep femoral 78 cm/s SFA proximal 157 cm/s SFA mid-portion 86 cm/s SFA distal 64 cm/s Popliteal 97 cm/s Posterior tibial 43 cm/s Dorsalis pedis 61 cm/s The waveforms are triphasic with diastolic flow. IMPRESSION: 1. There is no evidence for peripheral vascular insufficiency in the right lower extremity. 2. There is no evidence for peripheral vascular insufficiency in the left lower extremity. 3. No significant focal stenosis is identified. 4. END IMPRESSION: HS:Y
[2024-04-29] MEDS ORDERED: DOXY1CAP57 PO (14:51)
--- NOTE | 2024-04-29 14:53 | DVHDS2 ---
Discharge Summary Date of Admission Apr 28, 2024 at 03:38 Date of Discharge: Apr 29, 2024 Labs/Diagnostic Data: Laboratory Results Test 04/29/24 13:09 04/29/24 12:28 04/29/24 11:07 04/29/24 05:06 Random Vancomycin Level 5.3 ug/mL (5-10) Influenza Type A Antigen Negative (Negative) Influenza Type B Antigen Negative (Negative) SARS-CoV-2 Antigen (Rapid) Negative (NEGATIVE) POC Glucose 237 mg/dl (70-106) White Blood Count 24.1 10^3/uL (4.4-10.8) Red Blood Count 4.23 10^6/uL (4.5-5.90) Hemoglobin 12.7 g/dL (13.5-17.5) Hematocrit 38.5 % (41.0-53.0) Mean Corpuscular Volume 90.9 fL (80.0-100.0) Mean Corpuscular Hemoglobin 30.1 pg (28.0-32.0) Mean Corpuscular Hemoglobin Concent 33.1 g/dL (32.0-36.0) Red Cell Distribution Width 19.2 % (11.8-14.3) Platelet Count 226 10^3/uL (140-450) Mean Platelet Volume 8.7 fL (6.9-10.8) Neutrophils (%) (Auto) 88.1 % (37.0-80.0) Lymphocytes (%) (Auto) 3.0 % (10.0-50.0) Monocytes (%) (Auto) 8.3 % (0.0-12.0) Eosinophils (%) (Auto) 0.3 % (0.0-7.0) Basophils (%) (Auto) 0.3 % (0.0-2.0) Neutrophils # (Auto) 21.3 10 ^3/uL (1.6-8.6) Lymphocytes # (Auto) 0.7 10 ^3/uL (0.4-5.4) Monocytes # (Auto) 2.0 10 ^3/uL (0-1.3) Eosinophils # (Auto) 0.1 10 ^3/uL (0-0.8) Basophils # (Auto) 0.1 10 ^3/uL (0-0.2) Nucleated Red Blood Cells 0.0 % Sodium Level 142 mmol/L (136-145) Potassium Level 3.0 mmol/L (3.5-5.1) Chloride Level 106 mmol/L (98-107) Carbon Dioxide Level 27 mmol/L (20-31) Anion Gap 9 (5-15) Blood Urea Nitrogen 41 mg/dL (9-23) Creatinine 1.77 mg/dL (0.700-1.30) Glomerular Filtration Rate Calc 38 mL/min (>90) BUN/Creatinine Ratio 23.2 (10.0-20.0) Serum Glucose 155 mg/dL (74-106) Calcium Level 10.4 mg/dL (8.7-10.4) Total Bilirubin 0.9 mg/dL (0.2-1.0) Aspartate Amino Transferase (AST) 13 U/L (13-40) Alanine Aminotransferase (ALT) 17 U/L (7-40) Alkaline Phosphatase 58 U/L (46-116) Total Protein 6.1 g/dL (5.7-8.2) Albumin 3.7 g/dL (3.2-4.8) Vitamin D 25-Hydroxy 75.8 ng/mL (30.0-100) Test 04/28/24 09:00 04/28/24 02:16 04/27/24 23:30 Troponin I High Sensitivity 409 ng/L (</=54) Lactic Acid Level 1.4 mmol/L (0.4-2.0) B-Type Natriuretic Peptide 752.30 pg/mL (0-100) Urine Color Light-yellow (Yellow) Urine Clarity Clear (Clear) Urine pH 5.5 (5.0-9.0) Urine Specific [place] 1.014 (1.001-1.035) Urine Protein Trace (Negative) Urine Ketones Negative (Negative) Urine Blood Negative /uL (Negative) Urine Nitrite Negative (Negative) Urine Bilirubin Negative (Negative) Urine Urobilinogen Normal mg/dL (Negative) Urine Leukocyte Esterase Negative /uL (Negative) Urine RBC None seen /hpf (0 - 3) Urine WBC <1 /hpf (0 - 3) Urine Squamous Epithelial Cells None seen /hpf (<5) Urine Bacteria None seen /hpf (None Seen) Urine Glucose 4+ mg/dL (Normal) Other Laboratory Tests 04/29/24 05:06 Brief Hx & Hospital Course: Final diagnoses: Right foot cellulitis Chronic heart failure Chronic kidney disease Chronic respiratory failure on home O2 COPD Coronary artery disease Type 2 diabetes Aortic stenosis Hypertension Hypokalemia Sepsis and leukocytosis due to cellulitis 83-year-old male with a history of CKD, CHF, AFib, prior EF of 40%, COPD on home O2, coronary artery disease, type 2 diabetes, aortic stenosis, hypertension comes to the emergency room with chief complaint of right foot swelling and redness He has right foot cellulitis He has acute on chronic heart failure He has generalized weakness my uses a walker at home He is stable for discharge now Discharged on doxycycline for 7 days Resume other home medications Follow up with PCP in 1-2 weeks as soon as possible Condition at Discharge: Stable Final Diagnosis/Problems List Chronic heart failure Right foot cellulitis Chronic kidney disease Chronic respiratory failure on home O2 COPD Coronary artery disease Type 2 diabetes Aortic stenosis Hypertension Hypokalemia Sepsis and leukocytosis due to cellulitis Discharge Disposition: Home SNF Discharge Will this Physician continue t: No Discharge Instruct/Medications Diet: Consistent carbohydrate, Cardiac 2g Na,low cholest Activity: No Restrictions, As Tolerated Follow Up/Referral: Dr. Zhanna DUFF Medications: Doxycycline 100 mg bid x 7 days Resume the home meds Discharge Statement: "Patient was advised to return to the ER or call 911 if any headaches, dizziness, shortness of breath, chest pain, abdominal pain, bleeding, fevers, or worsening of medical condition. Patient was counseled about treatment plan, medications, possible side effects, patientverbalized understanding. All questions were answered to the best of my ability. This discharge took greater then 30 minutes in planning, reviewing documentation, counseling the patient, and discussing with other team members." ASSESSMENT ASSESSMENT Assessment Chronic heart failure Right foot cellulitis Chronic kidney disease Chronic respiratory failure on home O2 COPD Coronary artery disease Type 2 diabetes Aortic stenosis Hypertension Hypokalemia Sepsis and leukocytosis due to cellulitis Date of Service: Apr 29, 2024 Billing Provider: ORVILLE FRANKS MD Common Visit Codes: NOT BILLABLE ORVILLE FRANKS MD Apr 29, 2024 14:52
[2024-04-29 15:22] VITALS: BP 128/56; PULSE 73; RESP 13; O2SAT 97
[2024-04-29] MEDS ORDERED: METOPROLOL TARTRATE 25 MG TAB PO SCH (22:00)
[2024-04-30] MEDS ORDERED: CLOPIDOGREL BISULFATE 75 MG TAB PO SCH (10:00)
== END 2024-04-29 15:21 | disposition home or self-care (01) | DRG 871 ==
LOC: ER 21:03 → EDBD 21:03 → TELE 04-28 03:38
PROVIDERS: ADMIT Nurse Practitioner Family; ATTEND Internal Medicine Geriatric Medicine
DX: A41.9 Sepsis, unspecified organism (principal); I50.43 Acute on chronic combined systolic (congestive) and diastolic (congestive) heart failure; I48.19 Other persistent atrial fibrillation; L03.115 Cellulitis of right lower limb; N17.9 Acute kidney failure, unspecified; J96.10 Chronic respiratory failure, unspecified whether with hypoxia or hypercapnia; I13.0 Hypertensive heart and chronic kidney disease with heart failure and stage 1 through stage 4 chronic kidney disease, or unspecified chronic kidney disease; G93.40 Encephalopathy, unspecified; E78.5 Hyperlipidemia, unspecified; J44.9 Chronic obstructive pulmonary disease, unspecified; I25.5 Ischemic cardiomyopathy; I25.10 Atherosclerotic heart disease of native coronary artery without angina pectoris; N18.9 Chronic kidney disease, unspecified; Z20.822 Contact with and (suspected) exposure to COVID-19; E11.22 Type 2 diabetes mellitus with diabetic chronic kidney disease; I35.0 Nonrheumatic aortic (valve) stenosis; E87.6 Hypokalemia; Z88.2 Allergy status to sulfonamides; Z99.81 Dependence on supplemental oxygen; Z95.5 Presence of coronary angioplasty implant and graft; Z95.2 Presence of prosthetic heart valve; Z95.0 Presence of cardiac pacemaker; Z86.73 Personal history of transient ischemic attack (TIA), and cerebral infarction without residual deficits; Z83.3 Family history of diabetes mellitus; Z82.5 Family history of asthma and other chronic lower respiratory diseases; Z79.82 Long term (current) use of aspirin; Z79.899 Other long term (current) drug therapy; Z90.49 Acquired absence of other specified parts of digestive tract
CPT/HCPCS: 36415; 70450; 71045; 73630; 80048; 80053; 80202; 81001; 82306; 82962; 83605; 83880; 84484; 85025; 87040; 87426; 87804; 93005; 93306; 93925; 93970; 94640; 97163; G0378; J1815; J3490

== ENCOUNTER 2025-04-06 18:57 | Inpatient (IN) | payer MEDICARE, OTHER ==
[~2025-04-06] VITALS: Ht 180.3 cm; Wt 103.6 kg
[~2025-04-06 18:57] MED LIST changes: +DOXY1CAP57 PO
--- NOTE | 2025-04-06 19:10 | ECG ---
[facility] Test Date: 2025-04-06 Test Time: 19:04:27 Pat Name: JAI FREEMAN Department: ED Room: 0289T Gender: M Book Critic: sandrine : 1940 Requested By: BRADLY ONEILL Order Number: [id number] Reading MD: Martínez Pascual Measurements Intervals [place] Rate: 70 P: 0 CA: 162 QRS: 260 QRSD: 130 T: 96 QT: 417 QTc: 450 Interpretive Statements Ventricular-paced complexes No further analysis attempted due to paced rhythm Electronically Signed On 04-08-2025 17:56:49 PST by Martínez Pascual Please click the below link to view image of tracing.
--- NOTE | 2025-04-06 19:35 | ED.PDOC ---
History of Present Illness HPI Comments 84-year-old male who came to ER via EMS for shortness of breath. Patient does have history of hypertension, diabetes, AFib, aortic stenosis, coronary artery disease, CHF, COPD, on home oxygen at 2 L/min. Status post pacemaker September 2024. Has been short of breath for the past 3 days, progressively worsening today. Increased oxygen to 5 L/min however still short of breath. Was saturating 95% on scene. Noted also worsening bipedal edema REVIEW OF SYSTEMS: General: No fever, no chills, or fatigue HEENT: No sore throat, no earache, no congestion, no neck pain. Cardiac: No chest pain. No palpitations. Lungs: (+) shortness of breath, no cough. GI: No nausea, no vomiting, no diarrhea, no constipation, no abdominal pain : No dysuria, frequency, or urgency. No hematuria. Musculoskeletal: No joint pain , no joint swelling, no extremity edema. Skin: No rash, no itching. Neuro: No headache, no dizziness, no weakness EXAM: General: Awake, alert and oriented. No acute distress. Skin: Skin in warm, dry and intact. Appropriate color for ethnicity. HEENT: The head is normocephalic and atraumatic. Conjunctivae are clear without exudates or hemorrhage. Sclera is non-icteric. EOM are intact. No signs of nystagmus. Eyelids are normal in appearance without swelling or lesions. Oral mucosa is pink and moist Neck: The neck is supple with normal range of motion. No JVD. Cardiac: Heart rate and rhythm are normal. No murmurs, gallops, or rubs are auscultated. Respiratory: No signs of respiratory distress. Rales bilaterally Abdominal: Abdomen is soft, non-tender without distention. Bowel sounds are present and normoactive in all four quadrants. Extremities: Bilateral lower extremity edema Neurological: The patient is awake, alert and oriented to person, place, and time with normal speech. Speech is clear. There is no facial asymmetry. Psychiatric: Appropriate mood and affect. Good judgement and insight Chief Complaint: Shortness of Breath Time Seen by MD: 19:35 Primary Care Provider: [place] Reviewed Notes: Nurses Notes, Childcare Teacher Notes Allergies: Coded Allergies: Sulfa Antibiotics (Verified Allergy, Unknown, 04/07/23) Home Meds Active Scripts Doxycycline Monohydrate (Doxycycline Monohydrate) 100 Mg Cap, 1 CAP PO BID, #14 CAP Prov:ORVILLE FRANKS MD 04/29/24 Azithromycin (Zithromax Z-Mikie) 250 Mg Tab, 250 MG PO DAILY, #6 TAB Prov:ORVILLE FRANKS MD 04/10/23 Methylprednisolone (Medrol Dosepak) 4 Mg Mikie, 4 MG PO UD, #21 TAB UAD Prov:ORVILLE FRANKS MD 04/10/23 Hydrocodone-Acetaminophen (Hydrocodone Bitartrate/AC 5-325 mg) 1 Tab Tab, 1 TAB PO BID, #14 TAB Prov:KELLIE MARIE 10/20/22 Reported Medications Gabapentin (Gabapentin) 300 Mg Cap, 300 MG PO DAILY for 30 Days, MG 04/07/23 Allopurinol (Allopurinol) 100 Mg Tab, 100 MG PO DAILY for 30 Days, MG 04/07/23 Cholecalciferol (VITAMIN D3) 2,000 Unit Tab, 2000 UNIT PO DAILY, TAB 04/07/23 Potassium Gluconate (Potassium) 595 Mg Tab, 8 MEQ PO DAILY, TAB 04/07/23 Meclizine Hcl (Meclizine Hcl) 25 Mg Tab, 25 MG PO BIDP PRN for DIZZINESS for 30 Days, MG 04/07/23 Famotidine In Nacl (Famotidine) 20 Mg/50 M Inj, 40 MG PO, INJ 04/07/23 Atorvastatin Calcium (Lipitor) 40 Mg Tab, 1 TAB PO QPM, #90 TAB 1 Refill 04/07/23 Ferrous Sulfate (Ferrous Sulfate) 325 Mg Tab, 325 MG PO EOD for 30 Days, MG 04/07/23 Spironolactone (Spironolactone) 25 Mg Tab, 1 TAB PO DAILY, #90 TAB 1 Refill 04/07/23 Furosemide (Furosemide) 20 Mg Tab, 20 MG PO BIDD for 30 Days, MG 04/07/23 Cinacalcet Hydrochloride (Sensipar) 30 Mg Tab, 60 MG PO DAILY, TAB 04/07/23 Empagliflozin (Jardiance) 25 Mg Tab, 25 MG PO DAILY, TAB 04/07/23 Semaglutide (Ozempic 8 mg/3Ml) 1 Inj Inj, 0.5 INJ SC QWEEKLY, INJ 04/07/23 Apixaban Base (ELIQUIS) 2.5 Mg Tab, 2.5 MG PO BID, TAB 04/07/23 Aspirin (Aspirin) 81 Mg Chw, 81 MG PO DAILY, TAB.CHEW 04/07/23 Ipratropium [place] (Ipratropium [place]) 0.03 % Spr, 0.2 % NA QID, SPRAY 04/07/23 Albuterol Sulfate (Albuterol Sulfate) 2 Mg Tab, 2 MG PO Q6HP, MG 04/07/23 Information Source: Patient, Emergency Med Personnel Mode of Arrival: EMS Past Medical History PAST MEDICAL HISTORY: AFIB, CHF, CKF, COPD, DM, High Lipids, HTN, MA Surgical History: Appendectomy, Cholecystectomy, Pacemaker, PTCA Family History Family History: Reviewed,noncontributory to illness, Family hx of DM, Family hx of Cancer, Family hx of heart jeremy Social History Smoker: Non-Smoker, Quit Greater Than 1 Year Alcohol: Denies ETOH Use Drugs: Denies Drug Use Lives In: Home Was a procedure done? Was a procedure done?: No EKG EKG : Pulse Rate (adult): 70 Cardiac Rhythm: Paced Differential Dx Considerations may include: Differential diagnoses considered includebut arenot limited to acute Bronchitis, Asthma, COPD, Pneumothorax, PE, CHF, Pulmonary HTN, Anemia, CO Poisoning, Methemoglobinemia, Hyperventilation, Metabolic Acidosis, Pulmonary Edema, Pneumonia, ACS, Pericardial Tamponade, Anxiety, other X-Ray, Labs, Meds, VS Vital Signs Date Time Temp Pulse Resp B/P (MAP) Pulse Ox O2 Delivery O2 Flow Rate FiO2 04/06/25 22:23 137/78 04/06/25 20:00 84 24 98 Nasal Cannula* 6 44 04/06/25 19:35 70 04/06/25 19:30 98.4 84 24 133/72 (92) 98 98.4 04/06/25 19:06 98.4 70 24 133/72 98 98.4 04/06/25 19:04 70 Lab Test 04/06/25 22:30 04/06/25 20:23 04/06/25 19:39 04/06/25 19:30 Range/Units Troponin I High Sensitivity 220 *H 202 *H 200 *H </=54 ng/L Blood Gas Specimen Type Arterial Blood Gas Sample Site Right radial Blood Gas Patient Temperature 37.0 Arterial Blood Date Drawn [id number] Arterial Blood pH 7.391 7.350-7.450 Arterial Blood Partial Pressure CO2 39.7 35.0-48.0 mmHg Arterial Blood Partial Pressure O2 103.5 83.0-108.0 mmHg Arterial Blood HCO3 23.5 21.0-28.0 mmol/L Arterial Blood Oxygen Saturation 97.7 94.0-98.0 % Arterial Blood Base Excess -1.2 -2.0-3.0 mmol/L Arterial Blood Oxyhemoglobin 96.5 94.0-98.0 % Arterial Blood Carboxyhemoglobin 0.8 0.5-1.5 % Arterial Blood Methemoglobin 0.4 0.0-1.5 % Sudhir Test Yes Blood Gas Total Hemoglobin 12.50 L 13.5-17.5 g/dL Blood Gas Liter Flow 6.00 Blood Gas Modality Nasal cannula FiO2 % 44.0 White Blood Count 8.2 4.4-10.8 10^3/uL Red Blood Count 4.00 L 4.5-5.90 10^6/uL Hemoglobin 12.1 L 13.5-17.5 g/dL Hematocrit 37.1 L 41.0-53.0 % Mean Corpuscular Volume 92.8 80.0-100.0 fL Mean Corpuscular Hemoglobin 30.2 28.0-32.0 pg Mean Corpuscular Hemoglobin Concent 32.5 32.0-36.0 g/dL Red Cell Distribution Width 16.5 H 11.8-14.3 % Platelet Count 233 140-450 10^3/uL Mean Platelet Volume 8.2 6.9-10.8 fL Neutrophils (%) (Auto) 77.1 37.0-80.0 % Lymphocytes (%) (Auto) 11.9 10.0-50.0 % Monocytes (%) (Auto) 8.2 0.0-12.0 % Eosinophils (%) (Auto) 2.2 0.0-7.0 % Basophils (%) (Auto) 0.6 0.0-2.0 % Neutrophils # (Auto) 6.3 1.6-8.6 10 ^3/uL Lymphocytes # (Auto) 1.0 0.4-5.4 10 ^3/uL Monocytes # (Auto) 0.7 0-1.3 10 ^3/uL Eosinophils # (Auto) 0.2 0-0.8 10 ^3/uL Basophils # (Auto) 0 0-0.2 10 ^3/uL Nucleated Red Blood Cells 0.0 % Sodium Level 146 H 136-145 mmol/L Potassium Level 4.1 3.5-5.1 mmol/L Chloride Level 109 H 98-107 mmol/L Carbon Dioxide Level 29 20-31 mmol/L Anion Gap 8 5-15 Blood Urea Nitrogen 30 H 9-23 mg/dL Creatinine 1.52 H 0.700-1.30 mg/dL Glomerular Filtration Rate Calc 45 >90 mL/min BUN/Creatinine Ratio 19.7 10.0-20.0 Serum Glucose 226 H 74-106 mg/dL Lactic Acid Level 0.8 0.4-2.0 mmol/L Calcium Level 9.4 8.7-10.4 mg/dL Total Bilirubin 0.4 0.2-1.0 mg/dL Aspartate Amino Transferase (AST) 22 13-40 U/L Alanine Aminotransferase (ALT) 24 7-40 U/L Alkaline Phosphatase 129 H 46-116 U/L B-Type Natriuretic Peptide 752.84 0-100 pg/mL Total Protein 6.1 5.7-8.2 g/dL Albumin 3.8 3.2-4.8 g/dL Current Medications Medications (Trade) Dose Ordered Sig/Brandi Route Start Time Stop Time Status Last Admin Furosemide (Lasix Injection) 40 mg ONCE ONCE IV 04/06/25 22:00 04/06/25 22:01 DC 04/06/25 22:23 Ceftriaxone Sodium 50 ml @ 100 mls/hr ONCE ONCE IV 04/06/25 22:00 04/06/25 22:29 DC 04/06/25 22:24 [place] [address] Ph: [phone] DIAGNOSTIC IMAGING Diagnostic Imaging Report : [id number] Signed PATIENT: JAI FREEMAN ACCT: [id number] UNIT: [id number] : 1940 LOC: ER ROOM / BED: / AGE / SEX: 84 / M ADM STATUS: REG ER SERVICE 17 ORDERING PHYSICIAN: BRADLY ONEILL MD PROCEDURE(s): CXR1 - CHEST XRAY 1 VIEW REASON: Shortness of breath ORDER NUMBER(s): [id number], ACCESSION NUMBER(s): [id number] CHEST RADIOGRAPH REASON FOR EXAM: Shortness of breath COMPARISON: XY CHEST PORTABLE on DOS: 04/27/24, XY CHEST PORTABLE on DOS: 04/07/23 TECHNIQUE: One view of the chest is provided FINDINGS: The cardiomediastinal silhouette is enlarged. The patient is status post aortic valvuloplasty. There is a cardiac pacer. There is bilateral per ihilar and basilar airspace disease. There is consolidation of a portion of the right middle lobe. There are small bilateral pleural effusions. There is no pneumothorax. IMPRESSION: Perihilar and bibasilar airspace disease. Partial consolidation of the right middle lobe. Findings are concerning for multifocal pneumonia as well as pulmonary edema. ATED BY: MASOUD SCHRADER MD DICTATED DATE/TIME: 04/06/251947 SIGNED BY: MASOUD SCHRADER MD SIGNED DATE/TIME: 04/06/251947 CC: Time of 1ST Reevaluation: 19:30 Reevaluation 1ST: Unchanged Patient Education/Counseling: Need For Follow Up Family Education/Counseling: No Family Present SEPSIS Sepsis Screen Date sepsis recognized/suspect: Apr 06, 2025 Time Sepsis recognized/suspect: 1904 Recent Procedure: No On Antibiotic Therapy: No Respiratory Rate >20: No Heart Rate >90: No Temp<36 C (96.8 F) or >38.3 C: No SBP <90 or MAP <65 mmHG: No New Acute Mental Status Change: No Is the patient on CPAP, BIPAP,: No Physician Orders Abg W/ Co-Ox (04/06/25 19:18) Chest Xray 1 View (04/06/25 19:18) Titrate Oxygen (04/06/25 19:18) Oxygen (04/06/25 ) Continous Pulse Oximetry (04/06/25 19:18) Saline Lock (04/06/25 19:18) Industrial Gas Servicer (04/06/25 ) Notify Md If Abnormal Vs (04/06/25 19:18) Vital Signs Date Time Temp Pulse Resp B/P (MAP) Pulse Ox O2 Delivery O2 Flow Rate FiO2 04/06/25 22:23 137/78 04/06/25 20:00 84 24 98 Nasal Cannula* 6 44 04/06/25 19:35 70 04/06/25 19:30 98.4 84 24 133/72 (92) 98 98.4 04/06/25 19:06 98.4 70 24 133/72 98 98.4 04/06/25 19:04 70 Laboratory Tests Test 04/06/25 19:30 Lactic Acid Level 0.8 mmol/L (0.4-2.0) White Blood Count 8.2 10^3/uL (4.4-10.8) Medications Medications Dose Ordered Sig/Brandi Route Start Time Stop Time Status Last Admin Dose Admin Ceftriaxone Sodium 50 ml @ 100 mls/hr ONCE ONCE IV 04/06/25 22:00 04/06/25 22:29 DC 04/06/25 22:24 Furosemide 40 mg ONCE ONCE IV 04/06/25 22:00 04/06/25 22:01 DC 04/06/25 22:23 Departure 1 Departure Time of Disposition: 21:52 Impression: Primary Impression: Pneumonia Additional Impressions: CHF exacerbation Elevated troponin Disposition: ADMITTED INPATIENT Condition: Stable Comments MDM: Patient admitted to hospitalist service for further treatment, evaluation and monitoring. Extensive evaluation was performed in attempt to identify or rule out: (See differential diagnosis section) The following tests were ordered, and results were reviewed by me and discussed with patient: (See diagnostic results section) The following test were independently interpreted by me: EKG-paced rhythm no STEMI, chest x-ray, pulmonary edema/congestion I reviewed and agreed with the following test results read by other providers: Chest x-ray I reviewed the following notes from the pt's past medical encounters: Encounter 02/2024 for generalized weakness Additional information was gathered from interviewing the following independent historians: EMS personnel Discussion of management or test interpretation with external physician/other qualified health career and transition teacher: N/A Addressed an acute or chronic illness that poses a threat to life or bodily function: CHF exacerbation, elevated troponin Decision regarding hospitalization or escalation of hospital level of care: Risk and benefits of admission for further treatment of patient's condition was considered. Due to patient's current clinical condition, high risk of decline and poor outcome if discharged and need for further inpatient management and monitoring, patient will be admitted to the hospital. Drug therapy requiring intensive monitoring for toxicity: IV furosemide Critical Care Note Critical Care Time?: No Stability Stability form required: No Heart Score Heart Score: Heart Score Response (Comments) Value History Moderate Suspicious 1 EKG Repolarization Disturb 1 Age >65 2 Risk Factors >3 or Hx ASHD 2 Troponin Normal limit 0 Total 6 I personally scribed for BRADLY ONEILL MD ([email or web address]) on 04/06/25 at 19:35. Electronically submitted by Alexi Caicedo ([employer]). I personally scribed for BRADLY ONEILL MD ([email or web address]) on 04/06/25 at 19:43. Electronically submitted by Alexi Caicedo ([employer]). I personally scribed for BRADLY ONEILL MD ([email or web address]) on 04/06/25 at 19:55. Electronically submitted by Alexi Caicedo ([employer]). BRADLY ONEILL MD Apr 06, 2025 19:35
[2025-04-06 19:40] LABS: Hematocrit 37.1 % (41.0-53.0); Hemoglobin 12.1 g/dL (13.5-17.5); Mean Corpuscular Hemoglobin 30.2 pg (28.0-32.0); Mean Corpuscular Volume 92.8 fL (80.0-100.0); Nucleated Red Blood Cells % 0.0 %
--- NOTE | 2025-04-06 19:50 | DVH ---
CHEST RADIOGRAPH REASON FOR EXAM: Shortness of breath COMPARISON: XY CHEST PORTABLE on DOS: 04/27/24, XY CHEST PORTABLE on DOS: 04/07/23 TECHNIQUE: One view of the chest is provided FINDINGS: The cardiomediastinal silhouette is enlarged. The patient is status post aortic valvuloplasty. There is a cardiac pacer. There is bilateral perihilar and basilar airspace disease. There is consolidation of a portion of the right middle lobe. There are small bilateral pleural effusions. There is no pneumothorax. IMPRESSION: Perihilar and bibasilar airspace disease. Partial consolidation of the right middle lobe. Findings are concerning for multifocal pneumonia as well as pulmonary edema.
[2025-04-06 19:54] LABS: Base Excess -1.2 mmol/L (-2.0-3.0)
[2025-04-06 19:54] LABS: Alanine Aminotransferase 24 U/L (7-40); Albumin 3.8 g/dL (3.2-4.8); Alkaline Phosphatase 129 U/L (46-116); Anion Gap 8 (5-15); BUN/Creatinine Ratio 19.7 (10.0-20.0); Bilirubin, Total 0.4 mg/dL (0.2-1.0); Blood Urea Nitrogen 30 mg/dL (9-23); Calcium 9.4 mg/dL (8.7-10.4); Carbon Dioxide 29 mmol/L (20-31); Chloride 109 mmol/L (98-107); Glucose 226 mg/dL (74-106); Potassium 4.1 mmol/L (3.5-5.1); Sodium 146 mmol/L (136-145); Total Protein 6.1 g/dL (5.7-8.2)
[2025-04-06 20:00] VITALS: PULSE 84; RESP 24; O2SAT 98
[2025-04-06] MEDS: FUROSEMIDE 40 MG/4 ML VIAL IV ONE (22:23)
[2025-04-06] MEDS ORDERED: ACETAMINOPHEN 325 MG TAB PO PRN (23:45)
[2025-04-06] MEDS ORDERED: DEXTROSE (50%) 50ML SYRG IV PRN (23:45)
[2025-04-06] MEDS ORDERED: MORPHINE SULFATE INJ 2 MG/ml SYRG IV PRN (23:45)
[2025-04-06] MEDS: AZITHROMYCIN 500MG/250ML 250 ML IV ONE (23:45)
[2025-04-06] MEDS ORDERED: NITROGLYCERIN 0.4 MG SL TAB SL PRN (23:45)
[2025-04-06] MEDS ORDERED: ONDANSETRON HCL 4 MG/2 ML VIAL IV PRN (23:45)
[2025-04-07] VITALS (10 sets, daily range): BP systolic 161; BP diastolic 81; PULSE 69–95; RESP 14–22; TEMP 98–98.3; O2SAT 94–100
[2025-04-07] MEDS: ACCU-CHEK COMFORT CURVE STRIP VI SCH
[2025-04-07] MEDS: InsuLIN REG 1unit/0.01ml Soln (100units/ml) SC SCH (02:08)
--- NOTE | 2025-04-07 04:45 | DVHHP2 ---
History of Present Illness Reason for Visit: Shortness for breath History of Present Illness 84-year-old male presents for evaluation of shortness for breath. Patient reports a three day history of worsening shortness for breath with associated productive cough with yellow phlegm. He currently uses 5 L of nasal cannula oxygen at home. Reports some chest pressure as well. He also reports having bilateral lower extremity swelling. No fever or chills. Past Medical History COPD, diabetes mellitus, chronic kidney disease, CHF, AFib, hypertension, mi Past Surgical History Cholecystectomy, pacemaker, PTCA, appendectomy Family History Noncontributory Smoke: Quit ALCOHOL: none Drugs: None Lives: with Family Review of Systems Review of Systems Review of systems are currently negative otherwise addressed in HPI. Allergies: Coded Allergies: Sulfa Antibiotics (Verified Allergy, Unknown, 04/07/23) Medications Current Medications Medications Dose Ordered Sig/Brandi Route Start Time Stop Time Status Last Admin Dose Admin Azithromycin 250 ml @ 125 mls/hr DAILY IV 04/07/25 10:00 Albuterol 2.5 mg Q6HPRN PRN NEB 04/06/25 23:45 Allopurinol 100 mg DAILY PO 04/07/25 10:00 Apixaban 2.5 mg BID PO 04/07/25 10:00 Aspirin 81 mg DAILY PO 04/07/25 10:00 Atorvastatin Calcium 40 mg HS PO 04/07/25 22:00 Empaglifozin 25 mg DAILY PO 04/07/25 10:00 Gabapentin 300 mg DAILY PO 04/07/25 10:00 Furosemide 40 mg DAILY IV 04/07/25 10:00 Diagnostic Test (Pha) 1 strip Q6HR 04/07/25 00:00 04/07/25 00:00 1 STRIP Insulin Human Regular Q6HR SC 04/07/25 00:00 Dextrose 50 ml UD PRN IV 04/06/25 23:45 Ondansetron HCl 4 mg Q4HP PRN IV 04/06/25 23:45 Acetaminophen 650 mg Q6HP PRN PO 04/06/25 23:45 Nitroglycerin 0.4 mg Q5MINP PRN SL 04/06/25 23:45 Morphine Sulfate 2 mg Q30M PRN IV 04/06/25 23:45 Exam Vital Signs Vital Signs Date Time Temp Pulse Resp B/P (MAP) Pulse Ox O2 Delivery O2 Flow Rate FiO2 04/07/25 02:18 78 16 122/81 (95) 99 04/07/25 01:10 98.0 6.0 98.0 04/06/25 20:00 Nasal Cannula* 44 Exam Gen: 84-year-old male in mild distress. Skin: Warm, dry, normal color and texture, no rash. HEENT: Normocephalic atraumatic, mucous membranes moist and pink. Neck: Cervical and supraclavicular nodes normal without enlargement, trachea is midline, thyroid gland is normal without masses. Pulmonary: Clear to auscultation and percussion bilaterally. Cardiac: Regular rate and rhythm. No murmur Abdomen: Soft, nontender, nondistended, bowel sounds present all 4 quadrants, no guarding, no rigidity, no organomegaly. Extremities: No cyanosis, clubbing, no edema Neuro: Cranial nerves II through XII grossly intact, normal affect and speech, no focal motor deficits. Labs/Xrays ORDERING PHYSICIAN: BRADLY ONEILL MD PROCEDURE(s): CXR1 - CHEST XRAY 1 VIEW REASON: Shortness of breath ORDER NUMBER(s): [id number], ACCESSION NUMBER(s): [id number] CHEST RADIOGRAPH REASON FOR EXAM: Shortness of breath COMPARISON: XY CHEST PORTABLE on DOS: 04/27/24, XY CHEST PORTABLE on DOS: TECHNIQUE: One view of the chest is provided FINDINGS: The cardiomediastinal silhouette is enlarged. The patient is status post aortic valvuloplasty. There is a cardiac pacer. There is bilateral perihilar and basilar airspace disease. There is consolidation of a portion of the right middle lobe. There are small bilateral pleural effusions. There is no pneumothorax. IMPRESSION: Perihilar and bibasilar airspace disease. Partial consolidation of the right middle lobe. Findings are concerning for multifocal pneumonia as well as pulmonary edema. Labs Test 04/07/25 01:55 04/06/25 22:30 04/06/25 19:39 04/06/25 19:30 Range/Units POC Glucose 157 H 70-106 mg/dl Troponin I High Sensitivity 220 *H </=54 ng/L Blood Gas Specimen Type Arterial Blood Gas Sample Site Right radial Blood Gas Patient Temperature 37.0 Arterial Blood Date Drawn [id number] Arterial Blood pH 7.391 7.350-7.450 Arterial Blood Partial Pressure CO2 39.7 35.0-48.0 mmHg Arterial Blood Partial Pressure O2 103.5 83.0-108.0 mmHg Arterial Blood HCO3 23.5 21.0-28.0 mmol/L Arterial Blood Oxygen Saturation 97.7 94.0-98.0 % Arterial Blood Base Excess -1.2 -2.0-3.0 mmol/L Arterial Blood Oxyhemoglobin 96.5 94.0-98.0 % Arterial Blood Carboxyhemoglobin 0.8 0.5-1.5 % Arterial Blood Methemoglobin 0.4 0.0-1.5 % Sudhir Test Yes Blood Gas Total Hemoglobin 12.50 L 13.5-17.5 g/dL Blood Gas Liter Flow 6.00 Blood Gas Modality Nasal cannula FiO2 % 44.0 White Blood Count 8.2 4.4-10.8 10^3/uL Red Blood Count 4.00 L 4.5-5.90 10^6/uL Hemoglobin 12.1 L 13.5-17.5 g/dL Hematocrit 37.1 L 41.0-53.0 % Mean Corpuscular Volume 92.8 80.0-100.0 fL Mean Corpuscular Hemoglobin 30.2 28.0-32.0 pg Mean Corpuscular Hemoglobin Concent 32.5 32.0-36.0 g/dL Red Cell Distribution Width 16.5 H 11.8-14.3 % Platelet Count 233 140-450 10^3/uL Mean Platelet Volume 8.2 6.9-10.8 fL Neutrophils (%) (Auto) 77.1 37.0-80.0 % Lymphocytes (%) (Auto) 11.9 10.0-50.0 % Monocytes (%) (Auto) 8.2 0.0-12.0 % Eosinophils (%) (Auto) 2.2 0.0-7.0 % Basophils (%) (Auto) 0.6 0.0-2.0 % Neutrophils # (Auto) 6.3 1.6-8.6 10 ^3/uL Lymphocytes # (Auto) 1.0 0.4-5.4 10 ^3/uL Monocytes # (Auto) 0.7 0-1.3 10 ^3/uL Eosinophils # (Auto) 0.2 0-0.8 10 ^3/uL Basophils # (Auto) 0 0-0.2 10 ^3/uL Nucleated Red Blood Cells 0.0 % Sodium Level 146 H 136-145 mmol/L Potassium Level 4.1 3.5-5.1 mmol/L Chloride Level 109 H 98-107 mmol/L Carbon Dioxide Level 29 20-31 mmol/L Anion Gap 8 5-15 Blood Urea Nitrogen 30 H 9-23 mg/dL Creatinine 1.52 H 0.700-1.30 mg/dL Glomerular Filtration Rate Calc 45 >90 mL/min BUN/Creatinine Ratio 19.7 10.0-20.0 Serum Glucose 226 H 74-106 mg/dL Lactic Acid Level 0.8 0.4-2.0 mmol/L Calcium Level 9.4 8.7-10.4 mg/dL Total Bilirubin 0.4 0.2-1.0 mg/dL Aspartate Amino Transferase (AST) 22 13-40 U/L Alanine Aminotransferase (ALT) 24 7-40 U/L Alkaline Phosphatase 129 H 46-116 U/L B-Type Natriuretic Peptide 752.84 0-100 pg/mL Total Protein 6.1 5.7-8.2 g/dL Albumin 3.8 3.2-4.8 g/dL SEPSIS Sepsis Screen Date sepsis recognized/suspect: Apr 06, 2025 Time Sepsis recognized/suspect: 1999 Recent Procedure: No On Antibiotic Therapy: No Respiratory Rate >20: Yes Heart Rate >90: No Temp<36 C (96.8 F) or >38.3 C: No SBP <90 or MAP <65 mmHG: No New Acute Mental Status Change: No Is the patient on CPAP, BIPAP,: No Physician Orders Azithromycin 500mg/ 250ml (Zithromax 50 (04/07/25 10:00) Albuterol Medneb (Ventolin Medneb) (04/06/25 23:45) Allopurinol Tablet (Zyloprim Tablet) (04/07/25 10:00) Apixaban (Eliquis) (04/07/25 10:00) Aspirin Tablet (04/07/25 10:00) Atorvastatin (Lipitor) (04/07/25 22:00) Empagliflozin (Jardiance) (04/07/25 10:00) Gabapentin Capsule (Neurontin Capsule) (04/07/25 10:00) Furosemide Injection (Lasix Injection) (04/07/25 10:00) Consistent Carb(Ccho)Diabetes (04/07/25 Breakfast) Basic Metabolic Panel (04/07/25 04:00) Glucose Blood (Accu-Chek Comfort Curve T (04/07/25 00:00) Insulin R (Human) (Insulin R) (04/07/25 00:00) Dextrose 50% Syringe (04/06/25 23:45) Admit (04/06/25 23:31) Ondansetron Hcl (Zofran) (04/06/25 23:45) Complete Blood Count (04/07/25 04:00) Echo 2d Mode Cardiac Dop (04/06/25 23:31) Condition: Fair (04/06/25 23:31) Acetaminophen Tablet (Tylenol Tablet) (04/06/25 23:45) Bedrest With Bathroom Privileg (04/06/25 23:31) Nitroglycerin Sublingual (Ntrostat Subli (04/06/25 23:45) Morphine Sulfate Injection (04/06/25 23:45) Stat Ekg For Chest Pain (04/06/25 23:31) Notify Md Of Changes From Base (04/06/25 23:31) Floor Installer For 24 Hours (04/06/25 23:31) Emergency Dysrhythmia Protocol (04/06/25 23:31) Rhythm Strips Once Every Shift (04/06/25 23:31) Oxygen By Nasal Cannula (04/06/25 23:31) * Cardiology Consult (04/07/25 04:41) Aspirin Tablet (04/07/25 10:00) Vital Signs Date Time Temp Pulse Resp B/P (MAP) Pulse Ox O2 Delivery O2 Flow Rate FiO2 04/07/25 02:18 78 16 122/81 (95) 99 04/07/25 01:18 76 18 123/79 (94) 99 04/07/25 01:10 98.0 84 18 98 6.0 98.0 04/07/25 00:18 70 16 126/74 (91) 98 04/06/25 23:18 74 17 126/74 (91) 04/06/25 22:23 137/78 04/06/25 22:18 83 23 133/78 (96) 99 Laboratory Tests Test 04/06/25 19:30 Lactic Acid Level 0.8 mmol/L (0.4-2.0) White Blood Count 8.2 10^3/uL (4.4-10.8) Medications Medications Dose Ordered Sig/Brandi Route Start Time Stop Time Status Last Admin Dose Admin Azithromycin 250 ml @ 125 mls/hr ONCE ONCE IV 04/06/25 23:45 04/07/25 01:44 DC 04/06/25 23:45 125 MLS/HR Ceftriaxone Sodium 50 ml @ 100 mls/hr ONCE ONCE IV 04/06/25 22:00 04/06/25 22:29 DC 04/06/25 22:24 100 MLS/HR Diagnostic Test (Pha) 1 strip Q6HR 04/07/25 00:00 04/07/25 00:00 1 STRIP Furosemide 40 mg ONCE ONCE IV 04/06/25 22:00 04/06/25 22:01 DC 04/06/25 22:23 40 MG Assessment/Plan Assessment/Plan Assessment Multifocal pneumonia CHF COPD Diabetes mellitus Chronic kidney disease Elevated troponin Plan Admit the patient to telemetry to the hospitalist Cardiology consultation Rocephin/azithromycin Med nebs Resume home medications Continue treatment per orders Plan discussed with: Patient My Orders Orders - ANTONIO VENEGAS Procedure Category Date Status Time Azithromycin 500mg/ PHA 04/07/25 In Process 250ml (Zithromax 50 10:00 Albuterol Medneb PHA 04/06/25 In Process (Ventolin Medneb) 23:45 Allopurinol Tablet PHA 04/07/25 In Process (Zyloprim Tablet) 10:00 Apixaban (Eliquis) PHA 04/07/25 In Process 10:00 Aspirin Tablet PHA 04/07/25 In Process 10:00 Atorvastatin (Lipitor) PHA 04/07/25 In Process 22:00 Empagliflozin PHA 04/07/25 In Process (Jardiance) 10:00 Gabapentin Capsule PHA 04/07/25 In Process (Neurontin Capsule) 10:00 Furosemide Injection PHA 04/07/25 In Process (Lasix Injection) 10:00 Consistent DIET 04/07/25 Transmitted Carb(Ccho)Diabetes Breakfast Basic Metabolic Panel LAB 11/17/25 Logged 04:00 Glucose Blood PHA 04/07/25 In Process (Accu-Chek Comfort 00:00 Insulin R (Human) PHA 04/07/25 In Process (Insulin R) 00:00 Dextrose 50% Syringe PHA 04/06/25 In Process 23:45 Admit ADMIT 04/06/25 Transmitted 23:31 Ondansetron Hcl PHA 04/06/25 In Process (Zofran) 23:45 Complete Blood Count LAB 04/07/25 Logged 04:00 Echo 2d Mode Cardiac US 04/06/25 Logged DOP 23:31 Condition: Fair [facility] 04/06/25 In Process 23:31 Acetaminophen Tablet [facility] 04/06/25 In Process (Tylenol Tablet) 23:45 Bedrest With Bathroom [facility] 04/06/25 In Process Privileg 23:31 Nitroglycerin [facility] 04/06/25 In Process Sublingual (Ntrostat 23:45 Morphine Sulfate [facility] 04/06/25 In Process Injection 23:45 Stat Ekg For Chest [facility] 04/06/25 In Process Pain 23:31 Notify Of Changes [facility] 04/06/25 In Process From Base 23:31 Floor Installer For [facility] 04/06/25 In Process 24 Hours 23:31 Emergency Dysrhythmia [facility] 04/06/25 In Process Protocol 23:31 Rhythm Strips Once [facility] 04/06/25 In Process Every Shift 23:31 Oxygen By Nasal RT 04/06/25 Transmitted Cannula 23:31 * Cardiology Consult CONS 04/07/25 Transmitted 04:41 Aspirin Tablet PHA 04/07/25 Transmitted 10:00 Date of Service: Apr 07, 2025 Billing Provider: ANTONIO VENEGAS Common Visit Codes: [id number] INP/OBS CARE (HIGH) ANTONIO VENEGAS Apr 07, 2025 04:45
[2025-04-07 07:03] LABS: Hematocrit 34.2 % (41.0-53.0); Hemoglobin 11.3 g/dL (13.5-17.5); Mean Corpuscular Hemoglobin 30.3 pg (28.0-32.0); Mean Corpuscular Volume 91.5 fL (80.0-100.0); Nucleated Red Blood Cells % 0.1 %
[2025-04-07 07:07] LABS: Anion Gap 9 (5-15)
[2025-04-07 07:09] LABS: Calcium 9.3 mg/dL (8.7-10.4)
[2025-04-07 07:13] LABS: Carbon Dioxide 32 mmol/L (20-31); Chloride 109 mmol/L (98-107); Glucose 104 mg/dL (74-106); Potassium 3.1 mmol/L (3.5-5.1); Sodium 150 mmol/L (136-145)
[2025-04-07 07:14] LABS: BUN/Creatinine Ratio 22.7 (10.0-20.0); Blood Urea Nitrogen 32 mg/dL (9-23)
--- NOTE | 2025-04-07 08:38 | DVHINCON2 ---
Date of service: Apr 07, 2025 History of Present Illness 84 yo M with hx of CAP SIZER-P, hx of TAVR , admitted for sob and mulitfocal PNA. pt was here in apr 2024 for sob. he saw dr dalal in clinic recently for copd. Past Medical History reviewed Family History: Alcoholism G8 FATHER Chronic obstructive pulmonary disease G8 FATHER Diabetes mellitus G8 MOTHER Allergies: Coded Allergies: Sulfa Antibiotics (Verified Allergy, Unknown, 04/07/23) Home Meds Active Scripts Doxycycline Monohydrate (Doxycycline Monohydrate) 100 Mg Cap, 1 CAP PO BID, #14 CAP Prov:ORVILLE FRANKS MD 04/29/24 Azithromycin (Zithromax Z-Mikie) 250 Mg Tab, 250 MG PO DAILY, #6 TAB Prov:ORVILLE FRANKS MD 04/10/23 Methylprednisolone (Medrol Dosepak) 4 Mg Mikie, 4 MG PO UD, #21 TAB UAD Prov:ORVILLE FRANKS MD 04/10/23 Hydrocodone-Acetaminophen (Hydrocodone Bitartrate/AC 5-325 mg) 1 Tab Tab, 1 TAB PO BID, #14 TAB Prov:KELLIE MARIE 10/20/22 Reported Medications Gabapentin (Gabapentin) 300 Mg Cap, 300 MG PO DAILY for 30 Days, MG 04/07/23 Allopurinol (Allopurinol) 100 Mg Tab, 100 MG PO DAILY for 30 Days, MG 04/07/23 Cholecalciferol (VITAMIN D3) 2,000 Unit Tab, 2000 UNIT PO DAILY, TAB 04/07/23 Potassium Gluconate (Potassium) 595 Mg Tab, 8 MEQ PO DAILY, TAB 04/07/23 Meclizine Hcl (Meclizine Hcl) 25 Mg Tab, 25 MG PO BIDP PRN for DIZZINESS for 30 Days, MG 04/07/23 Famotidine In Nacl (Famotidine) 20 Mg/50 M Inj, 40 MG PO, INJ 04/07/23 Atorvastatin Calcium (Lipitor) 40 Mg Tab, 1 TAB PO QPM, #90 TAB 1 Refill 04/07/23 Ferrous Sulfate (Ferrous Sulfate) 325 Mg Tab, 325 MG PO EOD for 30 Days, MG 04/07/23 Spironolactone (Spironolactone) 25 Mg Tab, 1 TAB PO DAILY, #90 TAB 1 Refill 04/07/23 Furosemide (Furosemide) 20 Mg Tab, 20 MG PO BIDD for 30 Days, MG 04/07/23 Cinacalcet Hydrochloride (Sensipar) 30 Mg Tab, 60 MG PO DAILY, TAB 04/07/23 Empagliflozin (Jardiance) 25 Mg Tab, 25 MG PO DAILY, TAB 04/07/23 Semaglutide (Ozempic 8 mg/3Ml) 1 Inj Inj, 0.5 INJ SC QWEEKLY, INJ 04/07/23 Apixaban Base (ELIQUIS) 2.5 Mg Tab, 2.5 MG PO BID, TAB 04/07/23 Aspirin (Aspirin) 81 Mg Chw, 81 MG PO DAILY, TAB.CHEW 04/07/23 Ipratropium Midnight (Ipratropium Midnight) 0.03 % Spr, 0.2 % NA QID, SPRAY 04/07/23 Albuterol Sulfate (Albuterol Sulfate) 2 Mg Tab, 2 MG PO Q6HP, MG 04/07/23 Current Medications Current Medications Medications (Trade) Dose Ordered Sig/Brandi Route PRN Reason Start Time Stop Time Status Last Admin Azithromycin 250 ml @ 125 mls/hr DAILY IV 04/07/25 10:00 Albuterol (Ventolin Medneb) 2.5 mg Q6HPRN PRN NEB SHORTNESS OF BREATH 04/06/25 23:45 Allopurinol (Zyloprim Tablet) 100 mg DAILY PO 04/07/25 10:00 Apixaban (Eliquis) 2.5 mg BID PO 04/07/25 10:00 Aspirin 81 mg DAILY PO 04/07/25 10:00 04/07/25 04:49 DC Atorvastatin Calcium (Lipitor) 40 mg HS PO 04/07/25 22:00 Empaglifozin (Jardiance) 25 mg DAILY PO 04/07/25 10:00 Gabapentin (Neurontin Capsule) 300 mg DAILY PO 04/07/25 10:00 Furosemide (Lasix Injection) 40 mg DAILY IV 04/07/25 10:00 Diagnostic Test (Pha) (Accu-Chek Comfort Curve T) 1 strip Q6HR 04/07/25 00:00 04/07/25 06:00 Insulin Human Regular (InsuLIN R) Q6HR SC 04/07/25 00:00 Dextrose 50 ml UD PRN IV Blood Sugar LESS THAN 60 04/06/25 23:45 Ondansetron HCl (Zofran) 4 mg Q4HP PRN IV NAUSEA / VOMITING 04/06/25 23:45 Acetaminophen (Tylenol Tablet) 650 mg Q6HP PRN PO PAIN SCALE 1-3 OR TEMP>100.4 04/06/25 23:45 Nitroglycerin (Ntrostat Sublingual) 0.4 mg Q5MINP PRN SL FOR CHEST PAIN 04/06/25 23:45 Morphine Sulfate 2 mg Q30M PRN IV FOR CHEST PAIN 04/06/25 23:45 Aspirin 162 mg DAILY PO 04/07/25 10:00 Ceftriaxone Sodium 50 ml @ 100 mls/hr DAILY@09 IV 04/07/25 09:00 Review of Systems +sob, + fatigue, 10 pt ros otherwise negative Vital Signs Vital Signs Date Time Temp Pulse Resp B/P (MAP) Pulse Ox O2 Delivery O2 Flow Rate FiO2 04/07/25 06:15 70 15 117/63 (81) 99 04/07/25 06:05 Nasal Cannula* 2 28 04/07/25 01:10 98.0 98.0 Physical Exam nad s1 s2 rrr diffuse rhonchi, mild tachypneia abd soft nt/nd no edema Labs/Diagnostic Data Labs Test 04/07/25 06:26 04/07/25 01:55 04/06/25 22:30 04/06/25 19:39 Range/Units White Blood Count 7.3 4.4-10.8 10^3/uL Red Blood Count 3.74 L 4.5-5.90 10^6/uL Hemoglobin 11.3 L 13.5-17.5 g/dL Hematocrit 34.2 L 41.0-53.0 % Mean Corpuscular Volume 91.5 80.0-100.0 fL Mean Corpuscular Hemoglobin 30.3 28.0-32.0 pg Mean Corpuscular Hemoglobin Concent 33.1 32.0-36.0 g/dL Red Cell Distribution Width 16.3 H 11.8-14.3 % Platelet Count 211 140-450 10^3/uL Mean Platelet Volume 8.1 6.9-10.8 fL Neutrophils (%) (Auto) 72.3 37.0-80.0 % Lymphocytes (%) (Auto) 14.1 10.0-50.0 % Monocytes (%) (Auto) 10.1 0.0-12.0 % Eosinophils (%) (Auto) 2.9 0.0-7.0 % Basophils (%) (Auto) 0.6 0.0-2.0 % Neutrophils # (Auto) 5.3 1.6-8.6 10 ^3/uL Lymphocytes # (Auto) 1.0 0.4-5.4 10 ^3/uL Monocytes # (Auto) 0.7 0-1.3 10 ^3/uL Eosinophils # (Auto) 0.2 0-0.8 10 ^3/uL Basophils # (Auto) 0 0-0.2 10 ^3/uL Nucleated Red Blood Cells 0.1 % Sodium Level 150 H 136-145 mmol/L Potassium Level 3.1 L 3.5-5.1 mmol/L Chloride Level 109 H 98-107 mmol/L Carbon Dioxide Level 32 H 20-31 mmol/L Anion Gap 9 5-15 Blood Urea Nitrogen 32 H 9-23 mg/dL Creatinine 1.41 H 0.700-1.30 mg/dL Glomerular Filtration Rate Calc 49 >90 mL/min BUN/Creatinine Ratio 22.7 H 10.0-20.0 Serum Glucose 104 # 74-106 mg/dL Calcium Level 9.3 8.7-10.4 mg/dL POC Glucose 157 H 70-106 mg/dl Troponin I High Sensitivity 220 *H </=54 ng/L Blood Gas Specimen Type Arterial Blood Gas Sample Site Right radial Blood Gas Patient Temperature 37.0 Arterial Blood Date Drawn [id number] Arterial Blood pH 7.391 7.350-7.450 Arterial Blood Partial Pressure CO2 39.7 35.0-48.0 mmHg Arterial Blood Partial Pressure O2 103.5 83.0-108.0 mmHg Arterial Blood HCO3 23.5 21.0-28.0 mmol/L Arterial Blood Oxygen Saturation 97.7 94.0-98.0 % Arterial Blood Base Excess -1.2 -2.0-3.0 mmol/L Arterial Blood Oxyhemoglobin 96.5 94.0-98.0 % Arterial Blood Carboxyhemoglobin 0.8 0.5-1.5 % Arterial Blood Methemoglobin 0.4 0.0-1.5 % Sudhir Test Yes Blood Gas Total Hemoglobin 12.50 L 13.5-17.5 g/dL Blood Gas Liter Flow 6.00 Blood Gas Modality Nasal cannula FiO2 % 44.0 Test 04/06/25 19:30 Range/Units Lactic Acid Level 0.8 0.4-2.0 mmol/L Total Bilirubin 0.4 0.2-1.0 mg/dL Aspartate Amino Transferase (AST) 22 13-40 U/L Alanine Aminotransferase (ALT) 24 7-40 U/L Alkaline Phosphatase 129 H 46-116 U/L B-Type Natriuretic Peptide 752.84 0-100 pg/mL Total Protein 6.1 5.7-8.2 g/dL Albumin 3.8 3.2-4.8 g/dL Assessment nstemi multifocal PNA diastolic HF nyha class III ckd hx of PPM hx of tavr Plan/Recommendation prn lasix fu echo check bnp cont abx per primary service not sure if he has had device interrogation recently, pt unaware , unknown device Plan discussed with: Patient FOWLERSUZAN MD Apr 07, 2025 08:38
[2025-04-07] MEDS: POTASSIUM CHL 20 Meq TABLET PO ONE (09:57)
[2025-04-07] MEDS: FUROSEMIDE 40 MG/4 ML VIAL IV SCH (10:00)
[2025-04-07] MEDS: ALBUTEROL SULF 2.5 MG/0.5ML(0.5%) NEB SOLN NEB PRN (10:18)
[2025-04-07] MEDS: AZITHROMYCIN 500MG/250ML 250 ML IV SCH (10:31)
[2025-04-07] MEDS: APIXABAN 2.5 MG TAB PO SCH (10:32)
[2025-04-07] MEDS: EMPAGLIFLOZIN 10 MG TAB PO SCH (10:32)
[2025-04-07] MEDS: GABAPENTIN 300 MG CAP PO SCH (10:34)
[2025-04-07] MEDS: DIGOXIN 0.125 MG TAB PO SCH (10:34)
[2025-04-07] MEDS: ALLOPURINOL 100 MG TAB PO SCH (10:34)
[2025-04-07] MEDS: CLOPIDOGREL BISULFATE 75 MG TAB PO SCH (10:34)
[2025-04-07 10:50] LABS: COVID19 ANTIGEN SOFIA FIA NEGATIVE (NEGATIVE)
--- NOTE | 2025-04-07 14:27 | DVHPN2 ---
Subjective Patient states that his respiratory status has improved. Reviewed: Care Plan, H&P, Labs, Medications Changes from previous H/P or p: No Changes General: Per HPI Objective Vitals Vital Signs Date Time Temp Pulse Resp B/P (MAP) Pulse Ox O2 Delivery O2 Flow Rate FiO2 04/07/25 14:00 71 23 126/73 (90) 95 04/07/25 10:19 Nasal Cannula* 2 28 04/07/25 07:45 97.5 97.5 General Appearance: Alert, Oriented X3, Cooperative, mild distress HEENT: Atraumatic, PERRLA Lungs: Clear to auscultation, Normal air movement Cardiovascular: Normal S1, Normal S2 Musculoskeletal: Normal sensory function, Normal motor function Neuro: Normal speech Skin: Dry, Intact Psych/Mental Status: Mental status NL, Mood NL Medications Current Medications Medications Dose Ordered Sig/Brandi Route Start Time Stop Time Status Last Admin Dose Admin Azithromycin 250 ml @ 125 mls/hr DAILY IV 04/07/25 10:00 04/07/25 10:31 125 MLS/HR Albuterol 2.5 mg Q6HPRN PRN NEB 04/06/25 23:45 04/07/25 10:18 2.5 MG Allopurinol 100 mg DAILY PO 04/07/25 10:00 04/07/25 10:34 100 MG Apixaban 2.5 mg BID PO 04/07/25 10:00 04/07/25 10:32 2.5 MG Atorvastatin Calcium 40 mg HS PO 04/07/25 22:00 Empaglifozin 25 mg DAILY PO 04/07/25 10:00 04/07/25 10:32 25 MG Gabapentin 300 mg DAILY PO 04/07/25 10:00 04/07/25 10:34 300 MG Diagnostic Test (Pha) 1 strip Q6HR 04/07/25 00:00 04/07/25 12:00 1 STRIP Insulin Human Regular Q6HR SC 04/07/25 00:00 04/07/25 12:42 3 UNITS Dextrose 50 ml UD PRN IV 04/06/25 23:45 Ondansetron HCl 4 mg Q4HP PRN IV 04/06/25 23:45 Acetaminophen 650 mg Q6HP PRN PO 04/06/25 23:45 Nitroglycerin 0.4 mg Q5MINP PRN SL 04/06/25 23:45 Morphine Sulfate 2 mg Q30M PRN IV 04/06/25 23:45 Ceftriaxone Sodium 50 ml @ 100 mls/hr DAILY@09 IV 04/07/25 09:00 04/07/25 09:55 100 MLS/HR Clopidogrel Bisulfate 75 mg DAILY PO 04/07/25 10:00 04/07/25 10:34 75 MG Digoxin 0.125 mg DAILY PO 04/07/25 10:00 04/07/25 10:34 0.125 MG Laboratory Results Laboratory Tests 04/07/25 06:26 Chemistry Test 04/06/25 19:30 04/07/25 06:26 Albumin 3.8 g/dL (3.2-4.8) Calcium Level 9.4 mg/dL (8.7-10.4) 9.3 mg/dL (8.7-10.4) Total Protein 6.1 g/dL (5.7-8.2) Cardiac Markers Test 04/06/25 19:30 B-Type Natriuretic Peptide 752.84 pg/mL (0-100) LFT Test 04/06/25 19:30 Alanine Aminotransferase (ALT) 24 U/L (7-40) Alkaline Phosphatase 129 U/L (46-116) H Aspartate Amino Transferase (AST) 22 U/L (13-40) Total Bilirubin 0.4 mg/dL (0.2-1.0) Blood Gas Results Test 04/06/25 19:39 Arterial Blood pH 7.391 (7.350-7.450) FiO2 % 44.0 Labs and/or images reviewed: Labs reviewed by me, Image(s) reviewed by me Assessment/Plan Assessment/Plan Impression: -acute hypoxic respiratory failure -community-acquired pneumonia, probable Gram-positive/Gram-negative etiology -recent thoracentesis -COPD -TAVR -acute on chronic diastolic heart failure -obesity -primary hypertension -NSTEMI type 2 Plan: -cardiology consultation: Recommendations reviewed -CT scan of the chest -continue Rocephin and azithromycin -echocardiogram -potassium replacement -hold diuresis given hypernatremia -continue anticoagulation with Eliquis -sputum culture -repeat labs in a.m. Total time spent with patient discussing and formulating plan of care: 35 minutes. This medical document was created using an electronic medical record system with [employer] system. Although this document has been carefully reviewed, there may still be some phonetic and typographical errors. These areas are purely typographical due to imperfections of the software programs, and do not reflect any compromise in the patient's medical care. Plan discussed with: Patient, Other (RN) My Orders Orders - DAIHSA DSOUZA NP Procedure Category Date Status Time Erythrocyte LAB 04/07/25 In Process Sedimentation Rate 13:26 Basic Metabolic Panel LAB 04/08/25 Verified 04:00 Chest Portable XY 04/08/25 Logged 04:[address] 04/07/25 Transmitted 14:22 Date of Service: Apr 07, 2025 Billing Provider: DAISHA DSOUZA NP Common Visit Codes: [id number] INP/OBS CARE(HIGH) DAISHA DSOUZA NP Apr 07, 2025 14:27
--- NOTE | 2025-04-07 17:50 | DVHINCON2 ---
Date of service: Apr 07, [address] Beyer Reason for Consultation Acute respiratory failure History of Present Illness History Source: Patient Exam Limitations: No limitations HPI Patient is an 84-year old gentleman well known to Dr. Ojeda and followed in the clinic with a history of recurrent pleural effusions requiring thoracentesis who presented with worsening shortness of breath. Was seen in the emergency room where CT of the chest demonstrated bilateral pleural effusions, greater on the right, and he was admitted for further workup. Emphysema and atelectasis also present on imaging. Pulmonology was consulted to assist in management. Home Meds Active Scripts Doxycycline Monohydrate (Doxycycline Monohydrate) 100 Mg Cap, 1 CAP PO BID, #14 CAP Prov:ORVILLE FRANKS MD 04/29/24 Azithromycin (Zithromax Z-Mikie) 250 Mg Tab, 250 MG PO DAILY, #6 TAB Prov:ORVILLE FRANKS MD 04/10/23 Methylprednisolone (Medrol Dosepak) 4 Mg Mikie, 4 MG PO UD, #21 TAB UAD Prov:ORVILLE FRANKS MD 04/10/23 Hydrocodone-Acetaminophen (Hydrocodone Bitartrate/AC 5-325 mg) 1 Tab Tab, 1 TAB PO BID, #14 TAB Prov:KELLIE MARIE 10/20/22 Reported Medications Gabapentin (Gabapentin) 300 Mg Cap, 300 MG PO DAILY for 30 Days, MG 04/07/23 Allopurinol (Allopurinol) 100 Mg Tab, 100 MG PO DAILY for 30 Days, MG 04/07/23 Cholecalciferol (VITAMIN D3) 2,000 Unit Tab, 2000 UNIT PO DAILY, TAB 04/07/23 Potassium Gluconate (Potassium) 595 Mg Tab, 8 MEQ PO DAILY, TAB 04/07/23 Meclizine Hcl (Meclizine Hcl) 25 Mg Tab, 25 MG PO BIDP PRN for DIZZINESS for 30 Days, MG 04/07/23 Famotidine In Nacl (Famotidine) 20 Mg/50 M Inj, 40 MG PO, INJ 04/07/23 Atorvastatin Calcium (Lipitor) 40 Mg Tab, 1 TAB PO QPM, #90 TAB 1 Refill 04/07/23 Ferrous Sulfate (Ferrous Sulfate) 325 Mg Tab, 325 MG PO EOD for 30 Days, MG 04/07/23 Spironolactone (Spironolactone) 25 Mg Tab, 1 TAB PO DAILY, #90 TAB 1 Refill 04/07/23 Furosemide (Furosemide) 20 Mg Tab, 20 MG PO BIDD for 30 Days, MG 04/07/23 Cinacalcet Hydrochloride (Sensipar) 30 Mg Tab, 60 MG PO DAILY, TAB 04/07/23 Empagliflozin (Jardiance) 25 Mg Tab, 25 MG PO DAILY, TAB 04/07/23 Semaglutide (Ozempic 8 mg/3Ml) 1 Inj Inj, 0.5 INJ SC QWEEKLY, INJ 04/07/23 Apixaban Base (ELIQUIS) 2.5 Mg Tab, 2.5 MG PO BID, TAB 04/07/23 Aspirin (Aspirin) 81 Mg Chw, 81 MG PO DAILY, TAB.CHEW 04/07/23 Ipratropium [place] (Ipratropium [place]) 0.03 % Spr, 0.2 % NA QID, SPRAY 04/07/23 Albuterol Sulfate (Albuterol Sulfate) 2 Mg Tab, 2 MG PO Q6HP, MG 04/07/23 Past Medical History Cardiac: AFIB, CHF Pulmonary: Other (pleural effusions ) Central Nervous System: No pertinent Hx GI: No pertinent Hx Hemotology/Oncology: No pertinent Hx Hepatobiliary: No pertinent Hx Psychiatric: No pertinent Hx Musculoskeletal: No pertinent Hx Rheumotologic: No pertinent Hx Infectious Disease: No peritnent Hx ENT: No pertinent Hx Renal/: CKD Endocrine: No pertinent Hx Dermatology: No pertinent Hx Past Surgical History: Pacemaker Family History: DM Patient Family History: Alcoholism G8 FATHER Chronic obstructive pulmonary disease G8 FATHER Diabetes mellitus G8 MOTHER Smoker: No Hx (Negative) Alocohol: None Drugs: None Lives with: With family Domestic Violence: Neg Review of Systems Constitutional: No symptom reported Ears, Nose, & Throat: No symptom reported Eyes: No symptom reported Pulmonary/Respiratory: Dyspnea Cardiovascular: No symptom reported Gastrointestinal: No symptom reported Genitourinary: No symptom reported Musculoskeletal: No symptom reported Skin: No symptom reported Psychiatric: No symptom reported Endocrine: No symptom reported Hemotologic/Lymphatic: No symptom reported H&P Exam Vital Signs Vital Signs Date Time Temp Pulse Resp B/P (MAP) Pulse Ox O2 Delivery O2 Flow Rate FiO2 04/07/25 17:10 70 22 128/76 (93) 96 04/07/25 16:00 98.8 98.8 04/07/25 10:19 Nasal Cannula* 2 28 General Appeara: Well developed, Well nourished, Normal Appearance Head Exam: Normal inspection Neck Exam: Normal inspection, Non-tender, Normal alignment Eye Exam: bilateral eye Normal inspection, bilateral eye PERRL, bilateral eye EOMI Ear Exam: bilateral ear Auricle normal, bilateral ear Canal normal, bilateral ear TM normal Nasal Exam: Normal inspection Mouth: Normal Inspection Pulmonary/Respiratory: Decreased breath sounds Cardiovascular/Chest: Normal inspection Peripheral Pulses: 4+ Radial (R), 4+ Radial (L), 4+ Brachial (R), 4+ Brachial (L) Abdominal Exam: Normal bowel sounds Labs/Xrays Labs Test 04/07/25 12:36 04/07/25 09:50 04/07/25 09:06 04/07/25 06:26 Range/Units POC Glucose 181 H 70-106 mg/dl SARS-CoV-2 Antigen (Rapid) Negative NEGATIVE Influenza Type A Antigen Negative Negative Influenza Type B Antigen Negative Negative White Blood Count 7.3 4.4-10.8 10^3/uL Red Blood Count 3.74 L 4.5-5.90 10^6/uL Hemoglobin 11.3 L 13.5-17.5 g/dL Hematocrit 34.2 L 41.0-53.0 % Mean Corpuscular Volume 91.5 80.0-100.0 fL Mean Corpuscular Hemoglobin 30.3 28.0-32.0 pg Mean Corpuscular Hemoglobin Concent 33.1 32.0-36.0 g/dL Red Cell Distribution Width 16.3 H 11.8-14.3 % Platelet Count 211 140-450 10^3/uL Mean Platelet Volume 8.1 6.9-10.8 fL Neutrophils (%) (Auto) 72.3 37.0-80.0 % Lymphocytes (%) (Auto) 14.1 10.0-50.0 % Monocytes (%) (Auto) 10.1 0.0-12.0 % Eosinophils (%) (Auto) 2.9 0.0-7.0 % Basophils (%) (Auto) 0.6 0.0-2.0 % Neutrophils # (Auto) 5.3 1.6-8.6 10 ^3/uL Lymphocytes # (Auto) 1.0 0.4-5.4 10 ^3/uL Monocytes # (Auto) 0.7 0-1.3 10 ^3/uL Eosinophils # (Auto) 0.2 0-0.8 10 ^3/uL Basophils # (Auto) 0 0-0.2 10 ^3/uL Nucleated Red Blood Cells 0.1 % Erythrocyte Sedimentation Rate 19 0-20 mm/hr Sodium Level 150 H 136-145 mmol/L Potassium Level 3.1 L 3.5-5.1 mmol/L Chloride Level 109 H 98-107 mmol/L Carbon Dioxide Level 32 H 20-31 mmol/L Anion Gap 9 5-15 Blood Urea Nitrogen 32 H 9-23 mg/dL Creatinine 1.41 H 0.700-1.30 mg/dL Glomerular Filtration Rate Calc 49 >90 mL/min BUN/Creatinine Ratio 22.7 H 10.0-20.0 Serum Glucose 104 # 74-106 mg/dL Calcium Level 9.3 8.7-10.4 mg/dL C-Reactive Protein High Sensitivity 0.65 <1.0 mg/dL Test 04/06/25 22:30 04/06/25 19:39 04/06/25 19:30 Range/Units Troponin I High Sensitivity 220 *H </=54 ng/L Blood Gas Specimen Type Arterial Blood Gas Sample Site Right radial Blood Gas Patient Temperature 37.0 Arterial Blood Date Drawn [id number] Arterial Blood pH 7.391 7.350-7.450 Arterial Blood Partial Pressure CO2 39.7 35.0-48.0 mmHg Arterial Blood Partial Pressure O2 103.5 83.0-108.0 mmHg Arterial Blood HCO3 23.5 21.0-28.0 mmol/L Arterial Blood Oxygen Saturation 97.7 94.0-98.0 % Arterial Blood Base Excess -1.2 -2.0-3.0 mmol/L Arterial Blood Oxyhemoglobin 96.5 94.0-98.0 % Arterial Blood Carboxyhemoglobin 0.8 0.5-1.5 % Arterial Blood Methemoglobin 0.4 0.0-1.5 % Sudhir Test Yes Blood Gas Total Hemoglobin 12.50 L 13.5-17.5 g/dL Blood Gas Liter Flow 6.00 Blood Gas Modality Nasal cannula FiO2 % 44.0 Lactic Acid Level 0.8 0.4-2.0 mmol/L Total Bilirubin 0.4 0.2-1.0 mg/dL Aspartate Amino Transferase (AST) 22 13-40 U/L Alanine Aminotransferase (ALT) 24 7-40 U/L Alkaline Phosphatase 129 H 46-116 U/L B-Type Natriuretic Peptide 752.84 0-100 pg/mL Total Protein 6.1 5.7-8.2 g/dL Albumin 3.8 3.2-4.8 g/dL Assessment/Plan Plan Impression Acute hypoxemic respiratory failure Pleural effusions Emphysema Atelectasis Patient seen and examined Events Low oxygen requirements On 2 liters nasal cannula Vital signs stable Labs and imaging reviewed CT of the chest shows bilateral pleural effusions, greater on the right Atelectasis at the bases and emphysema Management Supplemental oxygen Titrate to maintain sats 90% or above Incentive spirometry Antibiotics Bronchodilators Diurese Monitor renal function Monitor electrolytes Supplement as needed F/u cardiology If there are no signs of improvement, we will consider thoracentesis DVT prophylaxis Plan discussed with: Patient EULALIO VIVEROS MD Apr 07, 2025 17:50
[2025-04-07] MEDS ORDERED: EZET-10 PO (23:05)
[2025-04-07] MEDS ORDERED: FURO40TA4 PO (23:05)
[2025-04-07] MEDS ORDERED: CHOL100055 PO (23:05)
[2025-04-07] MEDS ORDERED: DIGO0.12 PO (23:05)
[2025-04-07] MEDS ORDERED: GABA-339 PO (23:05)
[2025-04-07] MEDS ORDERED: GLIP10TA9 PO (23:05)
[2025-04-07] MEDS ORDERED: CLOP75TA70 PO (23:05)
[2025-04-07] MEDS ORDERED: AZIT500T66 PO (23:05)
[2025-04-07] MEDS ORDERED: FAMO40TA7 PO (23:05)
[2025-04-07] MEDS ORDERED: PRED20TA2 PO (23:05)
[2025-04-07] MEDS ORDERED: MET25T PO (23:05)
[2025-04-07] MEDS ORDERED: CINA30TA14 PO (23:05)
[2025-04-07] MEDS ORDERED: LACT1CAP17 PO (23:05)
[2025-04-07] MEDS ORDERED: TAMS0.4C39 PO (23:05)
[2025-04-08] VITALS (17 sets, daily range): BP systolic 122–154; BP diastolic 69–81; PULSE 68–77; RESP 14–100; TEMP 97.5–98.2; O2SAT 98–100
[2025-04-08] MEDS: ATORVASTATIN 20 MG TAB PO SCH (00:48)
--- NOTE | 2025-04-08 06:11 | DVH ---
MEDICAL RECORDS NUMBER: [id number] PROCEDURE: XY CHEST PORTABLE DATE: 04/08/2025 05:39 AM HISTORY: pna Views:1 COMPARISON: CT CHEST WITHOUT CONTRAST on DOS: 04/07/25, XY CHEST XRAY 1 VIEW on DOS: 04/06/25, XY CHEST PORTABLE on DOS: 04/27/24, XY CHEST PORTABLE on DOS: 04/07/23 FINDINGS/IMPRESSION: Lungs: Bibasilar infiltrates are evident. Some fluid and consolidation is portions of the left base. Mediastinum: Mediastinal structures appear unremarkable. LEFT-sided pacing devices are noted. No pneumothorax is seen. Skeletal: The skeletal structures appear unremarkable.
[2025-04-08 07:56] LABS: Anion Gap 10 (5-15); Calcium 9.4 mg/dL (8.7-10.4); Carbon Dioxide 30 mmol/L (20-31)
[2025-04-08 08:00] LABS: Chloride 109 mmol/L (98-107); Potassium 3.3 mmol/L (3.5-5.1); Sodium 149 mmol/L (136-145)
[2025-04-08 08:02] LABS: BUN/Creatinine Ratio 24.2 (10.0-20.0); Glucose 84 mg/dL (74-106)
[2025-04-08 08:03] LABS: Blood Urea Nitrogen 30 mg/dL (9-23)
--- NOTE | 2025-04-08 14:09 | DVH ---
Procedure: CT CHEST WITHOUT CONTRAST Reason for study/Clinical History: ? multifocal pna Comparison Study: XY CHEST XRAY 1 VIEW on DOS: 04/06/25, XY CHEST PORTABLE on DOS: 04/27/24, XY CHEST PORTABLE on DOS: 04/07/23 Exam Date: 04/07/2025 02:31 PM TECHNIQUE: Multidetector CT of the chest was performed from the lung apices to the upper abdomen without the use of intravenous contract. Axial, coronal and sagittal multiplanar reformats were performed. Radiation Dose Information: CT Dose: CTDI volume is 14.97 mGy. Dose-length product is 588.12 mGy*cm The dose indicators for CT are the volume Computed Tomography (CT) Dose Index (CTDIvol) and the Dose Length Product (DLP), and are measured in units of mGy and mGy-cm, respectively. These indicators are not patient dose, but values generated from the CT scanner acquisition factors. The report includes radiation exposure data for exposures received during this examination. FINDINGS: Lower neck: Normal thyroid. Lungs: There is a 3.4 cm spiculated mass in the right mid lung zone. In addition there is a 1 cm spiculated density at the right lung base laterally. Moderate- sized infiltrate is seen at the left lung base. Heart/Vascular Structures: Heart size is enlarged. There is a small to mild pericardial effusion. Lymph Nodes: No adenopathy Pleura: There is a large right effusion as well as a moderate to large left effusion. Atelectasis is seen at both lung bases. Musculoskeletal: No acute osseous abnormality. Soft tissues: Normal. Upper abdomen: Limited portions of the upper abdomen are unremarkable. IMPRESSION: 1. 3.4 cm spiculated mass in the right midlung zone. This is worrisome for neoplasm, clinical correlation recommended. 2. 1 cm spiculated density right lung base laterally, possible infection versus neoplasm, clinical correlation recommended. 3. Moderate-sized infiltrate at the left lung base. 4. Large right effusion and moderate to large left effusion. 5. Cardiomegaly. 6. Small to mild pericardial effusion. Lung-RADS Category 4 X Category 0: Comparison with prior studies before assignment of Lung-RADS classification Category 1: Continue annual screening with LDCT Category 2: Continue annual screening with LDCT Category 3: 6-month follow-up with LDCT Category 4A: 3-month follow-up with LDCT PET-CT may be used if there is a ?8 mm solid component Category 4B and 4X: Chest CT with or without contrast, as appropriate PET-CT and/or tissue sampling depending on the probability of malignancy and comorbidities (PET-CT if solid component ?8 mm) for new large nodules that develop on an annual repeat screening CT, a 1 month LDCT may be recommended to address potentially infectious or inflammatory conditions. (version 1.1 addition) Radiation optimization: All CT scans at this facility use at least one of these dose optimization techniques: automated exposure control? mA and/or kV adjustment per patient size (includes targeted exams where dose is matched to clinical indication)? or iterative reconstruction. D HORTA
--- NOTE | 2025-04-08 14:11 | DVHPN2 ---
Subjective Patient reporting worsening shortness of breath today. Reviewed: Care Plan, H&P, Labs, Medications Changes from previous H/P or p: Changes General: Per HPI Objective Vitals Vital Signs Date Time Temp Pulse Resp B/P (MAP) Pulse Ox O2 Delivery O2 Flow Rate FiO2 04/08/25 14:09 99 Nasal Cannula* 3 32 04/08/25 14:06 70 14 04/08/25 13:00 97.6 154/70 (98) 97.6 Intake/Output Intake and Output 04/08/25 07:00 Intake Total 900 ml Output Total 1500 ml Balance -600 ml Intake Oral 600 ml IV Total 300 ml Output Urine Total 1500 ml General Appearance: Alert, Oriented X3, Cooperative, mild distress HEENT: Atraumatic, PERRLA Lungs: Clear to auscultation, Normal air movement Cardiovascular: Normal S1, Normal S2 Musculoskeletal: Normal sensory function, Normal motor function Neuro: Normal speech Skin: Dry, Intact Psych/Mental Status: Mental status NL, Mood NL Medications Current Medications Medications Dose Ordered Sig/Brandi Route Start Time Stop Time Status Last Admin Dose Admin Azithromycin 250 ml @ 125 mls/hr DAILY IV 04/07/25 10:00 04/08/25 10:00 125 MLS/HR Albuterol 2.5 mg Q6HPRN PRN NEB 04/06/25 23:45 04/08/25 14:06 2.5 MG Allopurinol 100 mg DAILY PO 04/07/25 10:00 04/08/25 10:37 100 MG Apixaban 2.5 mg BID PO 04/07/25 10:00 04/08/25 10:37 2.5 MG Atorvastatin Calcium 40 mg HS PO 04/07/25 22:00 04/08/25 00:48 40 MG Empaglifozin 25 mg DAILY PO 04/07/25 10:00 04/08/25 10:38 25 MG Gabapentin 300 mg DAILY PO 04/07/25 10:00 04/08/25 10:37 300 MG Diagnostic Test (Pha) 1 strip Q6HR 04/07/25 00:00 04/08/25 12:24 1 STRIP Insulin Human Regular Q6HR SC 04/07/25 00:00 04/08/25 12:39 3 UNITS Dextrose 50 ml UD PRN IV 04/06/25 23:45 Ondansetron HCl 4 mg Q4HP PRN IV 04/06/25 23:45 Acetaminophen 650 mg Q6HP PRN PO 04/06/25 23:45 Nitroglycerin 0.4 mg Q5MINP PRN SL 04/06/25 23:45 Morphine Sulfate 2 mg Q30M PRN IV 04/06/25 23:45 Ceftriaxone Sodium 50 ml @ 100 mls/hr DAILY@09 IV 04/07/25 09:00 04/08/25 10:36 100 MLS/HR Clopidogrel Bisulfate 75 mg DAILY PO 04/07/25 10:00 04/08/25 10:37 75 MG Digoxin 0.125 mg DAILY PO 04/07/25 10:00 04/08/25 10:37 0.125 MG Laboratory Results Laboratory Tests 04/07/25 06:26 04/08/25 04:59 Chemistry Test 04/08/25 04:59 Calcium Level 9.4 mg/dL (8.7-10.4) Labs and/or images reviewed: Labs reviewed by me, Image(s) reviewed by me Assessment/Plan Assessment/Plan Impression: -acute hypoxic respiratory failure -community-acquired pneumonia, probable Gram-positive/Gram-negative etiology -recent thoracentesis -COPD -TAVR -acute on chronic diastolic heart failure -obesity -primary hypertension -NSTEMI type 2 -lung mass Plan: Events: CT of the chest reviewed. Right middle lobe spiculated mass. Bibasilar opacities, pleural effusion -pulmonary consultation -cardiology consultation: Recommendations reviewed -CT scan of the chest -continue Rocephin and azithromycin -echocardiogram -potassium replacement -stop Eliquis -sputum culture -repeat labs in a.m. Total time spent with patient discussing and formulating plan of care: 35 minutes. This medical document was created using an electronic medical record system with [employer] dictation system. Although this document has been carefully reviewed, there may still be some phonetic and typographical errors. These areas are purely typographical due to imperfections of the software programs, and do not reflect any compromise in the patient's medical care. Plan discussed with: Patient, Other (RN) My Orders Orders - DAISHA DSOUZA NP Procedure Category Date Status Time Chest Without Contrast CT 04/07/25 Taken 14:22 Ipratropium Medneb PHA 04/08/25 Verified (Atrovent Medneb) 18:00 Albuterol Medneb PHA 04/08/25 Verified (Ventolin Medneb) 18:00 Budesonide PHA 04/08/25 Verified (Inhalation) 22:00 Date of Service: Apr 08, 2025 Billing Provider: DAISHA DSOUZA NP Common Visit Codes: [id number] INP/OBS CARE(HIGH) DAISHA DSOUZA NP Apr 08, 2025 14:11
--- NOTE | 2025-04-08 15:05 | DVHPN2 ---
Progress Note - Dictate Date Seen: Apr 08, 2025 Medical Necessity Reason Pt with a Central, PICC or Fol: No vital signs Vital Sign Date Time Temp Pulse Resp B/P (MAP) Pulse Ox O2 Delivery O2 Flow Rate FiO2 04/08/25 14:14 71 14 100 04/08/25 14:09 Nasal Cannula* 3 32 04/08/25 13:00 97.6 154/70 (98) 97.6 Total Intake and Output 04/07/25 04/07/25 04/08/25 15:00 23:00 07:00 Intake Total 300 ml 500 ml 100 ml Output Total 1250 ml 250 ml Balance 300 ml -750 ml -150 ml medications Current Medications Medications Dose Ordered Sig/Brandi Route Start Time Stop Time Status Last Admin Dose Admin Azithromycin 250 ml @ 125 mls/hr DAILY IV 04/07/25 10:00 04/08/25 10:00 125 MLS/HR Allopurinol 100 mg DAILY PO 04/07/25 10:00 04/08/25 10:37 100 MG Apixaban 2.5 mg BID PO 04/07/25 10:00 04/08/25 10:37 2.5 MG Atorvastatin Calcium 40 mg HS PO 04/07/25 22:00 04/08/25 00:48 40 MG Empaglifozin 25 mg DAILY PO 04/07/25 10:00 04/08/25 10:38 25 MG Gabapentin 300 mg DAILY PO 04/07/25 10:00 04/08/25 10:37 300 MG Diagnostic Test (Pha) 1 strip Q6HR 04/07/25 00:00 04/08/25 12:24 1 STRIP Insulin Human Regular Q6HR SC 04/07/25 00:00 04/08/25 12:39 3 UNITS Dextrose 50 ml UD PRN IV 04/06/25 23:45 Ondansetron HCl 4 mg Q4HP PRN IV 04/06/25 23:45 Acetaminophen 650 mg Q6HP PRN PO 04/06/25 23:45 Nitroglycerin 0.4 mg Q5MINP PRN SL 04/06/25 23:45 Morphine Sulfate 2 mg Q30M PRN IV 04/06/25 23:45 Ceftriaxone Sodium 50 ml @ 100 mls/hr DAILY@09 IV 04/07/25 09:00 04/08/25 10:36 100 MLS/HR Clopidogrel Bisulfate 75 mg DAILY PO 04/07/25 10:00 04/08/25 10:37 75 MG Digoxin 0.125 mg DAILY PO 04/07/25 10:00 04/08/25 10:37 0.125 MG Ipratropium [place] 0.5 mg Q6HWA [facility] 04/08/25 18:00 Albuterol 2.5 mg Q6HWA [facility] 04/08/25 18:00 Budesonide 0.5 mg BID NEB 04/08/25 22:00 Budesonide 0.5 mg BID [facility] 04/08/25 22:00 UNV laboratory and microbiology Laboratory Tests 04/08/25 04:59 04/07/25 06:26 Test 04/08/25 04:59 Range/Units Serum Glucose 84 74-106 mg/dL Assessment/Plan Impression Acute hypoxemic respiratory failure Pleural effusions Emphysema Atelectasis Patient seen and examined Events Low oxygen requirements On 2 liters nasal cannula No acute events Labs and imaging reviewed Management Supplemental oxygen Titrate to maintain sats 90% or above Incentive spirometry Continue antibiotics F/u cultures Bronchodilators Diurese Monitor renal function Monitor electrolytes Supplement as needed F/u cardiology DVT prophylaxis Plan discussed with: Patient EULALIO VIVEROS MD Apr 08, 2025 15:05
[2025-04-08] MEDS: ALBUTEROL SULF 2.5 MG/0.5ML(0.5%) NEB SOLN NEB SCH (17:13)
[2025-04-08] MEDS: BUDESONIDE (INHALATION) 0.5 MG/2 ML NEB NEB SCH (17:13)
[2025-04-08] MEDS: IPRATROPIUM BROM 0.5 MG/2.5ML INH SOL NEB SCH (17:15)
[2025-04-08] MEDS: POTASSIUM EFFERVESENT TAB 25 MEQ PO ONE (20:58)
[2025-04-08] MEDS ORDERED: BUDESONIDE (INHALATION) 0.5 MG/2 ML NEB NEB SCH (22:00)
[2025-04-09] VITALS (17 sets, daily range): BP systolic 117–158; BP diastolic 65–97; PULSE 67–73; RESP 18–24; TEMP 97.6–98.4; O2SAT 94–100
--- NOTE | 2025-04-09 09:10 | DVHPN2 ---
Progress Note - Dictate Date Seen: Apr 09, 2025 Medical Necessity Reason Pt with a Central, PICC or Fol: No vital signs Vital Sign Date Time Temp Pulse Resp B/P (MAP) Pulse Ox O2 Delivery O2 Flow Rate FiO2 04/09/25 08:46 97.6 70 20 157/97 (117) 97 97.6 04/09/25 07:30 Nasal Cannula* 4 36 Total Intake and Output 04/08/25 04/08/25 04/09/25 15:00 23:00 07:00 Intake Total 450 ml 100 ml Output Total 575 ml 250 ml Balance -125 ml -150 ml medications Current Medications Medications Dose Ordered Sig/Brandi Route Start Time Stop Time Status Last Admin Dose Admin Azithromycin 250 ml @ 125 mls/hr DAILY IV 04/07/25 10:00 04/08/25 10:00 125 MLS/HR Allopurinol 100 mg DAILY PO 04/07/25 10:00 04/08/25 10:37 100 MG Apixaban 2.5 mg BID PO 04/07/25 10:00 04/08/25 21:11 2.5 MG Atorvastatin Calcium 40 mg HS PO 04/07/25 22:00 04/08/25 21:11 40 MG Empaglifozin 25 mg DAILY PO 04/07/25 10:00 04/08/25 10:38 25 MG Gabapentin 300 mg DAILY PO 04/07/25 10:00 04/08/25 10:37 300 MG Diagnostic Test (Pha) 1 strip Q6HR 04/07/25 00:00 04/09/25 05:41 1 STRIP Insulin Human Regular Q6HR SC 04/07/25 00:00 04/09/25 05:42 3 UNITS Dextrose 50 ml UD PRN IV 04/06/25 23:45 Ondansetron HCl 4 mg Q4HP PRN IV 04/06/25 23:45 Acetaminophen 650 mg Q6HP PRN PO 04/06/25 23:45 Nitroglycerin 0.4 mg Q5MINP PRN SL 04/06/25 23:45 Morphine Sulfate 2 mg Q30M PRN IV 04/06/25 23:45 Ceftriaxone Sodium 50 ml @ 100 mls/hr DAILY@09 IV 04/07/25 09:00 04/08/25 10:36 100 MLS/HR Clopidogrel Bisulfate 75 mg DAILY PO 04/07/25 10:00 04/08/25 10:37 75 MG Digoxin 0.125 mg DAILY PO 04/07/25 10:00 04/08/25 10:37 0.125 MG Ipratropium [place] 0.5 mg Q6HWA NEB 04/08/25 18:00 04/09/25 04:45 0.5 MG Albuterol 2.5 mg Q6HWA NEB 04/08/25 18:00 04/09/25 04:46 2.5 MG Budesonide 0.5 mg BID NEB 04/08/25 22:00 04/09/25 06:43 0.5 MG Budesonide 0.5 mg BID NEB 04/08/25 22:00 UNV laboratory and microbiology Laboratory Tests 04/08/25 04:59 04/07/25 06:26 Test 04/08/25 04:59 Range/Units Serum Glucose 84 74-106 mg/dL Assessment/Plan Impression Acute hypoxemic respiratory failure Pleural effusions Emphysema Atelectasis Patient seen and examined Events CT of the chest reviewed Bilateral pleural effusions 1. 3.4 cm spiculated mass in the right midlung zone. This is worrisome for neoplasm, clinical correlation recommended. 2. 1 cm spiculated density right lung base laterally, possible infection versus neoplasm, clinical correlation recommended. 3. Moderate-sized infiltrate at the left lung base. 4. Large right effusion and moderate to large left effusion. 5. Cardiomegaly. 6. Small to mild pericardial effusion. Management We will proceed to thoracentesis Patient may require Further workup such as lung biopsy If malignant effusion is confirmed Would benefit from PleurX To be discussed Plan discussed with: Patient EULALIO VIVEROS MD Apr 09, 2025 09:10
--- NOTE | 2025-04-09 09:55 | DVHNC2 ---
Procedure - Right-sided thoracentesis with ultrasound guidance Indication Pleural effusion Procedure in detail Consent obtained time-out protocol. Patient was placed in a sitting position. ChloraPrep used to clean the operative field sterilely Draped to cover the area local analgesia lidocaine 1% 5 cc Approximately 1.3 L of fluid was drained with size 8 [place] catheter Fluid appeared light yellow colored Sample sent for cytology and other tests At the end of the procedure band-aid applied Follow up on chest x-ray EULALIO VIVEROS MD Apr 09, 2025 09:54
--- NOTE | 2025-04-09 09:55 | DVHNC2 ---
Procedure - left-sided thoracentesis with ultrasound guidance Indication Pleural effusion Procedure in detail Consent obtained time-out protocol. Patient was placed in a sitting position. ChloraPrep used to clean the operative field sterilely Draped to cover the area local analgesia lidocaine 1% 5 cc Approximately 950cc of fluid was drained with size 8 [place] catheter from the left pleural space Fluid appeared light yellow colored Sample sent for cytology and other tests At the end of the procedure band-aid applied Follow up on chest x-ray EULALIO VIVEROS MD Apr 09, 2025 09:55
--- NOTE | 2025-04-09 10:01 | DVHPN2 ---
Subjective s/p B thoracentesis Reviewed: Care Plan, H&P, Labs, Medications Changes from previous H/P or p: Changes General: Per HPI Objective Vitals Vital Signs Date Time Temp Pulse Resp B/P (MAP) Pulse Ox O2 Delivery O2 Flow Rate FiO2 04/09/25 08:46 97.6 70 20 157/97 (117) 97 97.6 04/09/25 07:30 Nasal Cannula* 4 36 Intake/Output Intake and Output 04/09/25 07:00 Intake Total 550 ml Output Total 825 ml Balance -275 ml Intake Oral 550 ml Output Urine Total 825 ml General Appearance: Alert, Oriented X3, Cooperative, mild distress HEENT: Atraumatic, PERRLA Lungs: Clear to auscultation, Normal air movement Cardiovascular: Normal S1, Normal S2 Musculoskeletal: Normal sensory function, Normal motor function Neuro: Normal speech Skin: Dry, Intact Psych/Mental Status: Mental status NL, Mood NL Medications Current Medications Medications Dose Ordered Sig/Brandi Route Start Time Stop Time Status Last Admin Dose Admin Azithromycin 250 ml @ 125 mls/hr DAILY IV 04/07/25 10:00 04/08/25 10:00 125 MLS/HR Allopurinol 100 mg DAILY PO 04/07/25 10:00 04/08/25 10:37 100 MG Apixaban 2.5 mg BID PO 04/07/25 10:00 04/08/25 21:11 2.5 MG Atorvastatin Calcium 40 mg HS PO 04/07/25 22:00 04/08/25 21:11 40 MG Empaglifozin 25 mg DAILY PO 04/07/25 10:00 04/08/25 10:38 25 MG Gabapentin 300 mg DAILY PO 04/07/25 10:00 04/08/25 10:37 300 MG Diagnostic Test (Pha) 1 strip Q6HR 04/07/25 00:00 04/09/25 05:41 1 STRIP Insulin Human Regular Q6HR SC 04/07/25 00:00 04/09/25 05:42 3 UNITS Dextrose 50 ml UD PRN IV 04/06/25 23:45 Ondansetron HCl 4 mg Q4HP PRN IV 04/06/25 23:45 Acetaminophen 650 mg Q6HP PRN PO 04/06/25 23:45 Nitroglycerin 0.4 mg Q5MINP PRN SL 04/06/25 23:45 Morphine Sulfate 2 mg Q30M PRN IV 04/06/25 23:45 Ceftriaxone Sodium 50 ml @ 100 mls/hr DAILY@09 IV 04/07/25 09:00 04/08/25 10:36 100 MLS/HR Clopidogrel Bisulfate 75 mg DAILY PO 04/07/25 10:00 04/08/25 10:37 75 MG Digoxin 0.125 mg DAILY PO 04/07/25 10:00 04/08/25 10:37 0.125 MG Ipratropium [place] 0.5 mg Q6HWA [place] 04/08/25 18:00 04/09/25 04:45 0.5 MG Albuterol 2.5 mg Q6HWA NEB 04/08/25 18:00 04/09/25 04:46 2.5 MG Budesonide 0.5 mg BID NEB 04/08/25 22:00 04/09/25 06:43 0.5 MG Budesonide 0.5 mg BID NEB 04/08/25 22:00 UNV Laboratory Results Laboratory Tests 04/07/25 06:26 04/08/25 04:59 Assessment/Plan Assessment/Plan B pleural effusions s/p B thoracentesis Right lung masses Rule out Lung cancer B pneumonia CKD HTN Afib on Eliquis CAD on Plavix COPD on home O2 Diastolic HF DM2 PLAN: Send pleural fluid to lab for LDH, glucose, protein, cell count, gram stain, C&S, and cytology IV antibiotics: Rocephin and Zithromax Hold Eliquis and Plavix for CT guided biopsy IR consult for CT guided lung mass biopsy O2 as needed Monitor closely Plan discussed with: Patient Date of Service: Apr 09, 2025 Billing Provider: ORVILLE FRANKS MD Common Visit Codes: NOT BILLABLE ORVILLE FRANKS MD Apr 09, 2025 10:01
--- NOTE | 2025-04-09 11:26 | DVH ---
CHEST RADIOGRAPH Indication: s/p right and left thoracentesis Technique: XY CHEST PORTABLE COMPARISON: None FINDINGS: 04/08/2025 The cardiac silhouette is enlarged. The lungs demonstrate bilateral patchy airspace opacities. The pulmonary vasculature is prominent. Small bilateral pleural effusions, decreased from prior. Aortic atherosclerotic disease. Aortic valvular prosthesis. Left chest dual lead. There is no pneumothorax. IMPRESSION: As above
[2025-04-09 14:07] LABS: INR 1.23 (0.9-1.15); Partial Thromboplastin Time 32.3 SEC (24.5-34.5); Prothrombin Time 12.8 sec (9.3-11.8)
[2025-04-10] VITALS (18 sets, daily range): BP systolic 117–147; BP diastolic 65–82; PULSE 66–75; RESP 16–20; TEMP 97.9–98.7; O2SAT 96–100
[2025-04-10 06:56] LABS: Hematocrit 34.7 % (41.0-53.0); Hemoglobin 11.5 g/dL (13.5-17.5); Mean Corpuscular Hemoglobin 30.3 pg (28.0-32.0); Mean Corpuscular Volume 91.3 fL (80.0-100.0); Nucleated Red Blood Cells % 0.0 %
[2025-04-10 07:08] LABS: Alanine Aminotransferase 15 U/L (7-40); Alkaline Phosphatase 75 U/L (46-116); Anion Gap 7 (5-15); BUN/Creatinine Ratio 27.0 (10.0-20.0); Calcium 10.1 mg/dL (8.7-10.4); Carbon Dioxide 30 mmol/L (20-31); Magnesium 2.1 mg/dL (1.6-2.6); Potassium 4.1 mmol/L (3.5-5.1); Total Protein 5.8 g/dL (5.7-8.2)
[2025-04-10 07:10] LABS: Albumin 3.4 g/dL (3.2-4.8); Bilirubin, Total 0.6 mg/dL (0.2-1.0)
[2025-04-10 07:14] LABS: Blood Urea Nitrogen 31 mg/dL (9-23); Chloride 108 mmol/L (98-107); Glucose 149 mg/dL (74-106); Sodium 145 mmol/L (136-145)
--- NOTE | 2025-04-10 13:39 | DVHPN2 ---
Progress Note - Dictate Date Seen: Apr 10, 2025 Medical Necessity Reason Pt with a Central, PICC or Fol: No vital signs Vital Sign Date Time Temp Pulse Resp B/P (MAP) Pulse Ox O2 Delivery O2 Flow Rate FiO2 04/10/25 12:37 97.9 66 16 141/77 (98) 98 97.9 04/10/25 11:05 Nasal Cannula 2.0 04/10/25 11:05 28 Total Intake and Output 04/09/25 04/09/25 04/10/25 15:00 23:00 07:00 Intake Total 300 ml 700 ml 500 ml Output Total 575 ml 550 ml Balance 300 ml 125 ml -50 ml medications Current Medications Medications Dose Ordered Sig/Brandi Route Start Time Stop Time Status Last Admin Dose Admin Azithromycin 250 ml @ 125 mls/hr DAILY IV 04/07/25 10:00 04/10/25 10:14 125 MLS/HR Allopurinol 100 mg DAILY PO 04/07/25 10:00 04/10/25 09:14 100 MG Atorvastatin Calcium 40 mg HS PO 04/07/25 22:00 04/09/25 22:10 40 MG Empaglifozin 25 mg DAILY PO 04/07/25 10:00 04/10/25 09:18 25 MG Gabapentin 300 mg DAILY PO 04/07/25 10:00 04/10/25 09:17 300 MG Diagnostic Test (Pha) 1 strip Q6HR 04/07/25 00:00 04/10/25 12:10 1 STRIP Insulin Human Regular Q6HR SC 04/07/25 00:00 04/10/25 12:10 4 UNITS Dextrose 50 ml UD PRN IV 04/06/25 23:45 Ondansetron HCl 4 mg Q4HP PRN IV 04/06/25 23:45 Acetaminophen 650 mg Q6HP PRN PO 04/06/25 23:45 Nitroglycerin 0.4 mg Q5MINP PRN SL 04/06/25 23:45 Morphine Sulfate 2 mg Q30M PRN IV 04/06/25 23:45 Ceftriaxone Sodium 50 ml @ 100 mls/hr DAILY@09 IV 04/07/25 09:00 04/10/25 09:18 100 MLS/HR Digoxin 0.125 mg DAILY PO 04/07/25 10:00 04/10/25 09:17 0.125 MG Ipratropium [place] 0.5 mg Q6HWA NEB 04/08/25 18:00 04/10/25 11:05 0.5 MG Albuterol 2.5 mg Q6HWA NEB 04/08/25 18:00 04/10/25 11:05 2.5 MG Budesonide 0.5 mg BID NEB 04/08/25 22:00 04/10/25 06:51 0.5 MG Budesonide 0.5 mg BID NEB 04/08/25 22:00 UNV laboratory and microbiology Laboratory Tests 04/10/25 05:37 Test 04/10/25 05:37 Range/Units Serum Glucose 149 H 74-106 mg/dL Assessment/Plan Impression Acute hypoxemic respiratory failure Pleural effusions Emphysema Atelectasis Patient seen and examined Events CT of the chest reviewed Bilateral pleural effusions 1. 3.4 cm spiculated mass in the right midlung zone. This is worrisome for neoplasm, clinical correlation recommended. 2. 1 cm spiculated density right lung base laterally, possible infection versus neoplasm, clinical correlation recommended. 3. Moderate-sized infiltrate at the left lung base. 4. Large right effusion and moderate to large left effusion. 5. Cardiomegaly. 6. Small to mild pericardial effusion. Management We will proceed to thoracentesis Patient may require Further workup such as lung biopsy If malignant effusion is confirmed Would benefit from PleurX To be discussed EULALIO VIVEROS MD Apr 10, 2025 13:39
--- NOTE | 2025-04-10 14:03 | DVHPN2 ---
Subjective Better No new complaints Reviewed: Care Plan, H&P, Labs, Medications Changes from previous H/P or p: Changes General: Per HPI Objective Vitals Vital Signs Date Time Temp Pulse Resp B/P (MAP) Pulse Ox O2 Delivery O2 Flow Rate FiO2 04/10/25 12:37 97.9 66 16 141/77 (98) 98 97.9 04/10/25 11:05 Nasal Cannula 2.0 04/10/25 11:05 28 Intake/Output Intake and Output 04/10/25 07:00 Intake Total 1500 ml Output Total 1125 ml Balance 375 ml Intake Oral 1200 ml IV Total 300 ml Output Urine Total 1125 ml General Appearance: Alert, Oriented X3, Cooperative, mild distress HEENT: Atraumatic, PERRLA Lungs: Clear to auscultation, Normal air movement Cardiovascular: Normal S1, Normal S2 Musculoskeletal: Normal sensory function, Normal motor function Neuro: Normal speech Skin: Dry, Intact Psych/Mental Status: Mental status NL, Mood NL Medications Current Medications Medications Dose Ordered Sig/Brandi Route Start Time Stop Time Status Last Admin Dose Admin Azithromycin 250 ml @ 125 mls/hr DAILY IV 04/07/25 10:00 04/10/25 10:14 125 MLS/HR Allopurinol 100 mg DAILY PO 04/07/25 10:00 04/10/25 09:14 100 MG Atorvastatin Calcium 40 mg HS PO 04/07/25 22:00 04/09/25 22:10 40 MG Empaglifozin 25 mg DAILY PO 04/07/25 10:00 04/10/25 09:18 25 MG Gabapentin 300 mg DAILY PO 04/07/25 10:00 04/10/25 09:17 300 MG Diagnostic Test (Pha) 1 strip Q6HR 04/07/25 00:00 04/10/25 12:10 1 STRIP Insulin Human Regular Q6HR SC 04/07/25 00:00 04/10/25 12:10 4 UNITS Dextrose 50 ml UD PRN IV 04/06/25 23:45 Ondansetron HCl 4 mg Q4HP PRN IV 04/06/25 23:45 Acetaminophen 650 mg Q6HP PRN PO 04/06/25 23:45 Nitroglycerin 0.4 mg Q5MINP PRN SL 04/06/25 23:45 Morphine Sulfate 2 mg Q30M PRN IV 04/06/25 23:45 Ceftriaxone Sodium 50 ml @ 100 mls/hr DAILY@09 IV 04/07/25 09:00 04/10/25 09:18 100 MLS/HR Digoxin 0.125 mg DAILY PO 04/07/25 10:00 04/10/25 09:17 0.125 MG Ipratropium [place] 0.5 mg Q6HWA NEB 04/08/25 18:00 04/10/25 11:05 0.5 MG Albuterol 2.5 mg Q6HWA NEB 04/08/25 18:00 04/10/25 11:05 2.5 MG Budesonide 0.5 mg BID NEB 04/08/25 22:00 04/10/25 06:51 0.5 MG Budesonide 0.5 mg BID NEB 04/08/25 22:00 UNV Laboratory Results Laboratory Tests 04/10/25 05:37 Chemistry Test 04/10/25 05:37 Albumin 3.4 g/dL (3.2-4.8) Calcium Level 10.1 mg/dL (8.7-10.4) Magnesium Level 2.1 mg/dL (1.6-2.6) Total Protein 5.8 g/dL (5.7-8.2) LFT Test 04/10/25 05:37 Alanine Aminotransferase (ALT) 15 U/L (7-40) Alkaline Phosphatase 75 U/L (46-116) Aspartate Amino Transferase (AST) 17 U/L (13-40) Total Bilirubin 0.6 mg/dL (0.2-1.0) Microbiology Microbiology Date/Time Source Procedure Growth Status 04/09/25 12:40 Pleural Fluid Gram Stain - Final Resulted 04/09/25 12:40 Pleural Fluid Body Fluid Culture - Preliminary No growth Resulted Assessment/Plan Assessment/Plan B pleural effusions s/p B thoracentesis Right lung masses Rule out Lung cancer B pneumonia CKD HTN Afib on Eliquis CAD on Plavix COPD on home O2 Diastolic HF DM2 PLAN: Send pleural fluid to lab for LDH, glucose, protein, cell count, gram stain, C&S, and cytology IV antibiotics: Rocephin and Zithromax Hold Eliquis and Plavix for CT guided biopsy IR consult for CT guided lung mass biopsy O2 as needed Monitor closely 04/10/2025: Discussed the case with the patient with the his at the bedside Now the patient and the says that they do not want to have the lung mass biopsy done because he is not willing to have treatment for it anyway whether it is going to be chemo or radiation or surgery He would like to go home He would like to wait however until he gets a pathology report from the thoracentesis pleural fluid that we drained yesterday He is also interested in having a PleurX catheter for continuous drainage at home We will discuss the above with pulmonary service for possible PleurX catheter placement before discharge Cancel the biopsy Oxygen as needed Plan discussed with: Patient Date of Service: Apr 10, 2025 Billing Provider: ORVILLE FRANKS MD Common Visit Codes: NOT BILLABLE ORVILLE FRANKS MD Apr 10, 2025 14:03
[2025-04-10 16:55] LABS: Glucose, Body Fluid 180.0 mg/dL (.); Glucose, Body Fluid 183.0 mg/dL (.); LD, Body Fluid 73.0 IU/L (.); LD, Body Fluid 92.0 IU/L (.)
[2025-04-11] VITALS (15 sets, daily range): BP systolic 128–155; BP diastolic 57–95; PULSE 66–74; RESP 16–20; TEMP 97.9–99.3; O2SAT 95–100
--- NOTE | 2025-04-11 12:31 | DVHPN2 ---
Subjective He is complaining of right knee pain and swelling since this morning He complains of constipation Reviewed: Care Plan, H&P, Labs, Medications Changes from previous H/P or p: Changes General: Per HPI Objective Vitals Vital Signs Date Time Temp Pulse Resp B/P (MAP) Pulse Ox O2 Delivery O2 Flow Rate FiO2 04/11/25 12:03 71 16 99 04/11/25 11:57 Nasal Cannula 3.0 04/11/25 11:57 32 04/11/25 09:00 98.0 142/73 (96) 98.0 Intake/Output Intake and Output 04/11/25 07:00 Intake Total 870 ml Output Total 1150 ml Balance -280 ml Intake Oral 570 ml IV Total 300 ml Output Urine Total 1150 ml General Appearance: Alert, Oriented X3, Cooperative, mild distress HEENT: Atraumatic, PERRLA Lungs: Clear to auscultation, Normal air movement Cardiovascular: Normal S1, Normal S2 Musculoskeletal: Normal sensory function, Normal motor function Neuro: Normal speech Skin: Dry, Intact Psych/Mental Status: Mental status NL, Mood NL Medications Current Medications Medications Dose Ordered Sig/Brandi Route Start Time Stop Time Status Last Admin Dose Admin Azithromycin 250 ml @ 125 mls/hr DAILY IV 04/07/25 10:00 04/10/25 10:14 125 MLS/HR Allopurinol 100 mg DAILY PO 04/07/25 10:00 04/11/25 10:12 100 MG Atorvastatin Calcium 40 mg HS PO 04/07/25 22:00 04/10/25 21:21 40 MG Empaglifozin 25 mg DAILY PO 04/07/25 10:00 04/11/25 10:11 25 MG Gabapentin 300 mg DAILY PO 04/07/25 10:00 04/11/25 10:11 300 MG Diagnostic Test (Pha) 1 strip Q6HR 04/07/25 00:00 04/11/25 05:35 1 STRIP Insulin Human Regular Q6HR SC 04/07/25 00:00 04/11/25 05:36 2 UNITS Dextrose 50 ml UD PRN IV 04/06/25 23:45 Ondansetron HCl 4 mg Q4HP PRN IV 04/06/25 23:45 Acetaminophen 650 mg Q6HP PRN PO 04/06/25 23:45 Nitroglycerin 0.4 mg Q5MINP PRN SL 04/06/25 23:45 Morphine Sulfate 2 mg Q30M PRN IV 04/06/25 23:45 Ceftriaxone Sodium 50 ml @ 100 mls/hr DAILY@09 IV 04/07/25 09:00 04/11/25 09:55 100 MLS/HR Digoxin 0.125 mg DAILY PO 04/07/25 10:00 04/11/25 10:12 0.125 MG Ipratropium [place] 0.5 mg Q6HWA NEB 04/08/25 18:00 04/11/25 11:56 0.5 MG Albuterol 2.5 mg Q6HWA NEB 04/08/25 18:00 04/11/25 11:56 2.5 MG Budesonide 0.5 mg BID NEB 04/08/25 22:00 04/11/25 07:05 0.5 MG Budesonide 0.5 mg BID NEB 04/08/25 22:00 UNV Laboratory Results Laboratory Tests 04/10/25 05:37 Microbiology Microbiology Date/Time Source Procedure Growth Status 04/09/25 12:40 Pleural Fluid Gram Stain - Final Resulted 04/09/25 12:40 Pleural Fluid Body Fluid Culture - Preliminary No growth Resulted Assessment/Plan Assessment/Plan B pleural effusions s/p B thoracentesis Right lung masses Rule out Lung cancer B pneumonia CKD HTN Afib on Eliquis CAD on Plavix COPD on home O2 Diastolic HF DM2 PLAN: Send pleural fluid to lab for LDH, glucose, protein, cell count, gram stain, C&S, and cytology IV antibiotics: Rocephin and Zithromax Hold Eliquis and Plavix for CT guided biopsy IR consult for CT guided lung mass biopsy O2 as needed Monitor closely 04/10/2025: Discussed the case with the patient with the his at the bedside Now the patient and the says that they do not want to have the lung mass biopsy done because he is not willing to have treatment for it anyway whether it is going to be chemo or radiation or surgery He would like to go home He would like to wait however until he gets a pathology report from the thoracentesis pleural fluid that we drained yesterday He is also interested in having a PleurX catheter for continuous drainage at home We will discuss the above with pulmonary service for possible PleurX catheter placement before discharge Cancel the biopsy Oxygen as needed 04/11/2025: Constipation: Start Colace and lactulose Right knee swelling most likely due to gout: Get x-ray of the right knee, colchicine 0.6 mg twice a day Gout: Continue allopurinol Generalized weakness: Start physical therapy Pleural effusion: Repeat chest x-ray Pathology is still pending on pleural effusion thoracentesis done 2 days ago Monitor closely Continue to hold Eliquis and Plavix for anticipation for doing PleurX catheters Plan discussed with: Patient My Orders Orders - ORVILLE FRANKS MD Procedure Category Date Status Time Pt Request For Service PT 04/11/25 Logged 12:26 R Knee 2v Xray XY 04/11/25 Logged 12:26 Colchicine (Colcrys) PHA 04/11/25 Logged 22:00 Colchicine (Colcrys) PHA 04/11/25 Logged 12:30 Date of Service: Apr 11, 2025 Billing Provider: ORVILLE FRANKS MD Common Visit Codes: NOT BILLABLE ORVILLE FRANKS MD Apr 11, 2025 12:31
--- NOTE | 2025-04-11 13:46 | DVH ---
CHEST RADIOGRAPH Indication: pleural effusion Technique: Single frontal view of the chest was obtained COMPARISON: XY CHEST PORTABLE on DOS: 04/09/25, XY CHEST PORTABLE on DOS: 04/08/25, CT CHEST WITHOUT CONTRAST on DOS: 04/07/25, XY CHEST XRAY 1 VIEW on DOS: 04/06/25, XY CHEST PORTABLE on DOS: 04/27/24 FINDINGS: Lines and Tubes: Left chest wall pacemaker. Lungs: Pulmonary vascular congestion, unchanged. Pleura: No effusion. No pneumothorax. Cardiomediastinal contours: Cardiomegaly. Bones: Unremarkable IMPRESSION: Cardiomegaly and pulmonary vascular congestion.
--- NOTE | 2025-04-11 13:48 | DVH ---
CLINICAL INDICATION: right knee swelling TECHNIQUE: 2 radiographic views of the right knee were obtained. Comparison: None FINDINGS/IMPRESSION: Soft tissue swelling is noted over the right knee. Narrowing of the medial compartment of the right knee consistent with arthritis. There is spurring of the tibial spines. There is a ill-defined sclerotic lesion running horizontally along the proximal tibia. Can not exclude mild impaction fracture.
[2025-04-11] MEDS: COLCHICINE 0.6 MG CAP PO ONE (14:10)
[2025-04-11] MEDS: DOCUSATE SOD 100 MG CAP PO ONE (14:10)
--- NOTE | 2025-04-11 14:19 | DVHPN2 ---
Progress Note - Dictate Date Seen: Apr 11, 2025 Medical Necessity Reason Pt with a Central, PICC or Fol: No vital signs Vital Sign Date Time Temp Pulse Resp B/P (MAP) Pulse Ox O2 Delivery O2 Flow Rate FiO2 04/11/25 12:32 97.9 72 16 155/80 (105) 99 97.9 04/11/25 11:57 Nasal Cannula 3.0 04/11/25 11:57 32 Total Intake and Output 04/10/25 04/10/25 04/11/25 15:00 23:00 07:00 Intake Total 300 ml 450 ml 120 ml Output Total 500 ml 650 ml Balance 300 ml -50 ml -530 ml medications Current Medications Medications Dose Ordered Sig/Brandi Route Start Time Stop Time Status Last Admin Dose Admin Azithromycin 250 ml @ 125 mls/hr DAILY IV 04/07/25 10:00 04/10/25 10:14 125 MLS/HR Allopurinol 100 mg DAILY PO 04/07/25 10:00 04/11/25 10:12 100 MG Atorvastatin Calcium 40 mg HS PO 04/07/25 22:00 04/10/25 21:21 40 MG Empaglifozin 25 mg DAILY PO 04/07/25 10:00 04/11/25 10:11 25 MG Gabapentin 300 mg DAILY PO 04/07/25 10:00 04/11/25 10:11 300 MG Diagnostic Test (Pha) 1 strip Q6HR 04/07/25 00:00 04/11/25 05:35 1 STRIP Insulin Human Regular Q6HR SC 04/07/25 00:00 04/11/25 14:09 6 UNITS Dextrose 50 ml UD PRN IV 04/06/25 23:45 Ondansetron HCl 4 mg Q4HP PRN IV 04/06/25 23:45 Acetaminophen 650 mg Q6HP PRN PO 04/06/25 23:45 Nitroglycerin 0.4 mg Q5MINP PRN SL 04/06/25 23:45 Morphine Sulfate 2 mg Q30M PRN IV 04/06/25 23:45 Ceftriaxone Sodium 50 ml @ 100 mls/hr DAILY@09 IV 04/07/25 09:00 04/11/25 09:55 100 MLS/HR Digoxin 0.125 mg DAILY PO 04/07/25 10:00 04/11/25 10:12 0.125 MG Ipratropium [place] 0.5 mg Q6HWA NEB 04/08/25 18:00 04/11/25 11:56 0.5 MG Albuterol 2.5 mg Q6HWA NEB 04/08/25 18:00 04/11/25 11:56 2.5 MG Budesonide 0.5 mg BID NEB 04/08/25 22:00 04/11/25 07:05 0.5 MG Budesonide 0.5 mg BID NEB 04/08/25 22:00 UNV Colchicine 0.6 mg Q12HR PO 04/11/25 22:00 Docusate Sodium 100 mg BID PO 04/11/25 22:00 Lactulose 30 ml DAILYPRN PRN PO 04/11/25 12:30 laboratory and microbiology Laboratory Tests 04/10/25 05:37 Test 04/10/25 05:37 Range/Units Serum Glucose 149 H 74-106 mg/dL Assessment/Plan Impression Acute hypoxemic respiratory failure Pleural effusions Emphysema Atelectasis Patient seen and examined Events CT of the chest reviewed Bilateral pleural effusions 1. 3.4 cm spiculated mass in the right midlung zone. This is worrisome for neoplasm, clinical correlation recommended. 2. 1 cm spiculated density right lung base laterally, possible infection versus neoplasm, clinical correlation recommended. 3. Moderate-sized infiltrate at the left lung base. 4. Large right effusion and moderate to large left effusion. 5. Cardiomegaly. 6. Small to mild pericardial effusion. s/p bilat thora pt declining lung bx can be dc'd may require pleurX will follow up in our office Plan discussed with: Patient EULALIO VIVEROS MD Apr 11, 2025 14:19
[2025-04-11] MEDS: DOCUSATE SOD 100 MG CAP PO SCH (22:47)
[2025-04-11] MEDS: LACTULOSE 20Gm/30ML SOLN PO PRN (22:47)
[2025-04-11] MEDS: COLCHICINE 0.6 MG CAP PO SCH (22:47)
[2025-04-12] VITALS (16 sets, daily range): BP systolic 135–152; BP diastolic 67–92; PULSE 41–73; RESP 16–22; TEMP 97.5–98.7; O2SAT 96–100
[2025-04-12] MEDS ORDERED: LEVO500T91 PO (12:02)
[2025-04-12] MEDS ORDERED: COLC1CAP PO (12:06)
--- NOTE | 2025-04-12 12:12 | DVHDS2 ---
Discharge Summary Date of Admission Apr 06, 2025 at 23:31 Date of Discharge: Apr 12, 2025 Labs/Diagnostic Data: Laboratory Results Test 04/12/25 06:02 04/10/25 05:37 04/09/25 13:27 04/09/25 12:40 POC Glucose 156 mg/dl (70-106) White Blood Count 8.7 10^3/uL (4.4-10.8) Red Blood Count 3.80 10^6/uL (4.5-5.90) Hemoglobin 11.5 g/dL (13.5-17.5) Hematocrit 34.7 % (41.0-53.0) Mean Corpuscular Volume 91.3 fL (80.0-100.0) Mean Corpuscular Hemoglobin 30.3 pg (28.0-32.0) Mean Corpuscular Hemoglobin Concent 33.2 g/dL (32.0-36.0) Red Cell Distribution Width 16.1 % (11.8-14.3) Platelet Count 227 10^3/uL (140-450) Mean Platelet Volume 8.4 fL (6.9-10.8) Neutrophils (%) (Auto) 77.3 % (37.0-80.0) Lymphocytes (%) (Auto) 8.8 % (10.0-50.0) Monocytes (%) (Auto) 11.9 % (0.0-12.0) Eosinophils (%) (Auto) 1.7 % (0.0-7.0) Basophils (%) (Auto) 0.3 % (0.0-2.0) Neutrophils # (Auto) 6.7 10 ^3/uL (1.6-8.6) Lymphocytes # (Auto) 0.8 10 ^3/uL (0.4-5.4) Monocytes # (Auto) 1.0 10 ^3/uL (0-1.3) Eosinophils # (Auto) 0.1 10 ^3/uL (0-0.8) Basophils # (Auto) 0 10 ^3/uL (0-0.2) Nucleated Red Blood Cells 0.0 % Sodium Level 145 mmol/L (136-145) Potassium Level 4.1 mmol/L (3.5-5.1) Chloride Level 108 mmol/L (98-107) Carbon Dioxide Level 30 mmol/L (20-31) Anion Gap 7 (5-15) Blood Urea Nitrogen 31 mg/dL (9-23) Creatinine 1.15 mg/dL (0.700-1.30) Glomerular Filtration Rate Calc 63 mL/min (>90) BUN/Creatinine Ratio 27.0 (10.0-20.0) Serum Glucose 149 mg/dL (74-106) Calcium Level 10.1 mg/dL (8.7-10.4) Magnesium Level 2.1 mg/dL (1.6-2.6) Total Bilirubin 0.6 mg/dL (0.2-1.0) Aspartate Amino Transferase (AST) 17 U/L (13-40) Alanine Aminotransferase (ALT) 15 U/L (7-40) Alkaline Phosphatase 75 U/L (46-116) Total Protein 5.8 g/dL (5.7-8.2) Albumin 3.4 g/dL (3.2-4.8) Prothrombin Time 12.8 sec (9.3-11.8) Prothrombin Time INR 1.23 (0.9-1.15) Activated Partial Thromboplast Time 32.3 SEC (24.5-34.5) Body Fluid Source Pleural fluid(right) Body Fluid WBC (Manual) 820 CUMM (0-200) Body Fluid RBC (Manual) 2956 CUMM (0-2000) Body Fluid Mononuclear Cells 59 % Body Fluid Polymorphonuclear Cells 41 % (0-25) Body Fluid Glucose 183 mg/dL (.) Body Fluid Total Protein 1.2 g/dL (.) Body Fluid Lactate Dehydrogenase 73 IU/L (.) Test 04/09/25 05:56 04/07/25 09:50 04/07/25 09:06 04/07/25 06:26 Digoxin Level 0.73 ng/mL (0.8-2) SARS-CoV-2 Antigen (Rapid) Negative (NEGATIVE) Influenza Type A Antigen Negative (Negative) Influenza Type B Antigen Negative (Negative) Erythrocyte Sedimentation Rate 19 mm/hr (0-20) C-Reactive Protein High Sensitivity 0.65 mg/dL (<1.0) Test 04/06/25 22:30 04/06/25 19:39 04/06/25 19:30 Troponin I High Sensitivity 220 ng/L (</=54) Blood Gas Specimen Type Arterial Blood Gas Sample Site Right radial Blood Gas Patient Temperature 37.0 Arterial Blood Date Drawn [id number] Arterial Blood pH 7.391 (7.350-7.450) Arterial Blood Partial Pressure CO2 39.7 mmHg (35.0-48.0) Arterial Blood Partial Pressure O2 103.5 mmHg (83.0-108.0) Arterial Blood HCO3 23.5 mmol/L (21.0-28.0) Arterial Blood Oxygen Saturation 97.7 % (94.0-98.0) Arterial Blood Base Excess -1.2 mmol/L (-2.0-3.0) Arterial Blood Oxyhemoglobin 96.5 % (94.0-98.0) Arterial Blood Carboxyhemoglobin 0.8 % (0.5-1.5) Arterial Blood Methemoglobin 0.4 % (0.0-1.5) Sudhir Test Yes Blood Gas Total Hemoglobin 12.50 g/dL (13.5-17.5) Blood Gas Liter Flow 6.00 Blood Gas Modality Nasal cannula FiO2 % 44.0 Lactic Acid Level 0.8 mmol/L (0.4-2.0) B-Type Natriuretic Peptide 752.84 pg/mL (0-100) Other Laboratory Tests 04/10/25 05:37 Brief Hx & Hospital Course: Final diagnoses: Acute on chronic hypoxic respiratory failure B pleural effusions s/p B thoracentesis Right lung masses Rule out Lung cancer B pneumonia CKD HTN Afib on Eliquis CAD on Plavix COPD on home O2 Diastolic HF DM2 84-year-old male was admitted for bilateral pleural effusions which was recurrent The patient also has right lung masses He underwent thoracentesis bilaterally which revealed almost a L on each side After that he improved significantly The cytology on pleural fluid was sent but is still pending We also discussed with him the possibility of doing a lung mass biopsy however after consulting with his he decided that he does not want it done because he said he would not want to have chemo or radiation or surgery anyway Dr. 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 arthritis and therefore he was given colchicine 0.6 mg twice a day which relieved his pain He is feeling better now Discharged home Continue the other home medications Follow up with Pulmonary Medicine as an outpatient for possible PleurX catheter placement Condition at Discharge: Stable Final Diagnosis/Problems List B pleural effusions s/p B thoracentesis Right lung masses Rule out Lung cancer B pneumonia CKD HTN Afib on Eliquis CAD on Plavix COPD on home O2 Diastolic HF DM2 Discharge Disposition: Home SNF Discharge Will this Physician continue t: No Discharge Instruct/Medications Diet: Consistent carbohydrate, Cardiac 2g Na,low cholest Activity: Light activity Follow Up/Referral: PCP SHERIN DUFF Medications: Levaquin 500 mg qd x 7 days Colchicine 0.6 mg bid Resume other home meds Scheduled Albuterol Sulfate (Albuterol Sulfate), 2 MG PO Q6HP, (Reported) Allopurinol (Allopurinol), 100 MG PO DAILY, (Reported) Apixaban Base (Eliquis), 2.5 MG PO BID, (Reported) Apixaban Base (Eliquis), 2.5 MG PO BID, (Reported) Aspirin (Aspirin), 81 MG PO DAILY, (Reported) Atorvastatin Calcium (Lipitor), 1 TAB PO QPM, (Reported) Azithromycin (Zithromax Z-Mikie), 250 MG PO DAILY Azithromycin (Azithromycin), 500 MG PO DAILY, (Reported) Cholecalciferol (Vitamin D3), 2,000 UNIT PO DAILY, (Reported) Cinacalcet Hydrochloride (Sensipar), 60 MG PO DAILY, (Reported) Clopidogrel Bisulfate (Clopidogrel), 1 TAB PO DAILY, (Reported) Colchicine (Colchicine), 0.6 MG PO BID Digoxin (Digoxin), 1 TAB PO DAILY, (Reported) Doxycycline Monohydrate (Doxycycline Monohydrate), 1 CAP PO BID Empagliflozin (Jardiance), 25 MG PO DAILY, (Reported) Ezetimibe (Ezetimibe), 1 TAB PO DAILY, (Reported) Ferrous Sulfate (Ferrous Sulfate), 325 MG PO EOD, (Reported) Furosemide (Furosemide), 20 MG PO BIDD, (Reported) Furosemide (Furosemide), 1 TAB PO DAILY, (Reported) Gabapentin (Gabapentin), 300 MG PO DAILY, (Reported) Gabapentin (Gabapentin), 1 TAB PO DAILY, (Reported) Glipizide (Glipizide), 1 TAB PO BID, (Reported) Hydrocodone-Acetaminophen (Hydrocodone Bitartrate/AC 5-325 mg), 1 TAB PO BID Ipratropium [place] (Ipratropium [place]), 0.2 % NA QID, (Reported) Levofloxacin Hemihydrate (Levofloxacin), 1 TAB PO DAILY Methylprednisolone (Medrol Dosepak), 4 MG PO UD Metoprolol Tartrate (Lopressor), 1 TAB PO DAILY, (Reported) Potassium Gluconate (Potassium), 8 MEQ PO DAILY, (Reported) Semaglutide (Ozempic 8 mg/3Ml), 0.5 INJ SC QWEEKLY, (Reported) Spironolactone (Spironolactone), 1 TAB PO DAILY, (Reported) Spironolactone (Spironolactone), 1 TAB PO DAILY, (Reported) Tamsulosin Hcl (Tamsulosin Hcl), 0.4 MG PO QPM, (Reported) Scheduled PRN Albuterol Sulfate (Albuterol Sulfate), 2.5 MG PO Q6HP PRN for SHORTNESS OF BREATH, (Reported) Albuterol Sulfate (Albuterol Sulfate), 90 MCG PO Q6HP PRN for SHORTNESS OF BREATH, (Reported) Meclizine Hcl (Meclizine Hcl), 25 MG PO BIDP PRN for DIZZINESS, (Reported) Miscellaneous Medications Cholecalciferol (D3), 1,000 UNIT PO, (Reported) Cinacalcet HCl (Cinacalcet Hydrochloride), 30 MG PO, (Reported) Famotidine (Famotidine), 1 TAB PO, (Reported) Famotidine In Nacl (Famotidine), 40 MG PO, (Reported) Lactobacillus (Acidophilus Lactobacilli), 1 CAP PO, (Reported) Prednisone (Prednisone), 20 MG PO, (Reported) Discharge Statement: "Patient was advised to return to the ER or call 911 if any headaches, dizziness, shortness of breath, chest pain, abdominal pain, bleeding, fevers, or worsening of medical condition. Patient was counseled about treatment plan, medications, possible side effects, patientverbalized understanding. All questions were answered to the best of my ability. This discharge took greater then 30 minutes in planning, reviewing documentation, counseling the patient, and discussing with other team members." ASSESSMENT ASSESSMENT Assessment B pleural effusions s/p B thoracentesis Right lung masses Rule out Lung cancer B pneumonia CKD HTN Afib on Eliquis CAD on Plavix COPD on home O2 Diastolic HF DM2 Date of Service: Apr 12, 2025 Billing Provider: ORVILLE FRANKS MD Common Visit Codes: NOT BILLABLE ORVILLE FRANKS MD Apr 12, 2025 12:11
--- NOTE | 2025-04-12 13:38 | DVHPN2 ---
Progress Note - Dictate Date Seen: Apr 12, 2025 Medical Necessity Reason Pt with a Central, PICC or Fol: No vital signs Vital Sign Date Time Temp Pulse Resp B/P (MAP) Pulse Ox O2 Delivery O2 Flow Rate FiO2 04/12/25 11:41 65 04/12/25 11:38 16 100 04/12/25 11:32 Nasal Cannula 2.0 04/12/25 11:32 28 04/12/25 05:00 98.6 143/67 (92) 98.6 Total Intake and Output 04/11/25 04/11/25 04/12/25 15:00 23:00 07:00 Intake Total 50 ml 1200 ml 480 ml Output Total 275 ml Balance 50 ml 1200 ml 205 ml medications Current Medications Medications Dose Ordered Sig/Brandi Route Start Time Stop Time Status Last Admin Dose Admin Azithromycin 250 ml @ 125 mls/hr DAILY IV 04/07/25 10:00 04/10/25 10:14 125 MLS/HR Allopurinol 100 mg DAILY PO 04/07/25 10:00 04/12/25 11:39 100 MG Atorvastatin Calcium 40 mg HS PO 04/07/25 22:00 04/11/25 21:58 40 MG Empaglifozin 25 mg DAILY PO 04/07/25 10:00 04/12/25 11:40 25 MG Gabapentin 300 mg DAILY PO 04/07/25 10:00 04/12/25 11:40 300 MG Diagnostic Test (Pha) 1 strip Q6HR 04/07/25 00:00 04/12/25 06:11 1 STRIP Insulin Human Regular Q6HR SC 04/07/25 00:00 04/12/25 12:46 4 UNITS Dextrose 50 ml UD PRN IV 04/06/25 23:45 Ondansetron HCl 4 mg Q4HP PRN IV 04/06/25 23:45 Acetaminophen 650 mg Q6HP PRN PO 04/06/25 23:45 Nitroglycerin 0.4 mg Q5MINP PRN SL 04/06/25 23:45 Morphine Sulfate 2 mg Q30M PRN IV 04/06/25 23:45 Ceftriaxone Sodium 50 ml @ 100 mls/hr DAILY@09 IV 04/07/25 09:00 04/12/25 09:27 100 MLS/HR Digoxin 0.125 mg DAILY PO 04/07/25 10:00 04/12/25 11:41 0.125 MG Ipratropium [place] 0.5 mg Q6HWA NEB 04/08/25 18:00 04/12/25 11:32 0.5 MG Albuterol 2.5 mg Q6HWA NEB 04/08/25 18:00 04/12/25 11:32 2.5 MG Budesonide 0.5 mg BID NEB 04/08/25 22:00 04/12/25 06:46 0.5 MG Budesonide 0.5 mg BID NEB 04/08/25 22:00 UNV Colchicine 0.6 mg Q12HR PO 04/11/25 22:00 04/12/25 11:41 0.6 MG Docusate Sodium 100 mg BID PO 04/11/25 22:00 04/12/25 11:40 100 MG Lactulose 30 ml DAILYPRN PRN PO 04/11/25 12:30 04/11/25 22:47 30 ML laboratory and microbiology Laboratory Tests 04/10/25 05:37 Test 04/10/25 05:37 Range/Units Serum Glucose 149 H 74-106 mg/dL Assessment/Plan Impression Acute hypoxemic respiratory failure Pleural effusions Emphysema Atelectasis Patient seen and examined Events Low oxygen requirements On 2 liters nasal cannula No distress Case discussed with Dr. Sandy Patient is okay to discharge CT of the chest reviewed Bilateral pleural effusions 1. 3.4 cm spiculated mass in the right midlung zone. This is worrisome for neoplasm, clinical correlation recommended. 2. 1 cm spiculated density right lung base laterally, possible infection versus neoplasm, clinical correlation recommended. 3. Moderate-sized infiltrate at the left lung base. 4. Large right effusion and moderate to large left effusion. 5. Cardiomegaly. 6. Small to mild pericardial effusion. s/p bilat thora pt declining lung bx management Okay to discharge from pulmonary standpoint may require pleurX will follow up in office with Dr. Ojeda Plan discussed with: Patient EULALIO VIVEROS MD Apr 12, 2025 13:38
[2025-04-13] VITALS (19 sets, daily range): BP systolic 136–177; BP diastolic 60–90; PULSE 68–86; RESP 17–36; TEMP 97.5–99.1; O2SAT 97–100
[2025-04-13] MEDS ORDERED: FLEET ENEMA(ADULT) 135 ML PR ONE (01:15)
--- NOTE | 2025-04-13 12:23 | DVHPN2 ---
Subjective He is complaining of generalized weakness He was supposed to be discharged home yesterday however he said he can not ambulate in his said he she is not able to provide care for him at home and physical therapy recommended for him to go to SNF for rehab Reviewed: Care Plan, H&P, Labs, Medications Changes from previous H/P or p: Changes General: Per HPI Objective Vitals Vital Signs Date Time Temp Pulse Resp B/P (MAP) Pulse Ox O2 Delivery O2 Flow Rate FiO2 04/13/25 12:05 69 04/13/25 11:10 32 100 04/13/25 11:00 Nasal Cannula 3.0 04/13/25 11:00 32 04/13/25 09:00 97.5 145/82 (103) 97.5 Intake/Output Intake and Output 04/13/25 07:00 Intake Total 1300 ml Output Total 810 ml Balance 490 ml Intake Oral 1250 ml IV Total 50 ml Output Urine Total 810 ml # Bowel Movements 1 General Appearance: Alert, Oriented X3, Cooperative, mild distress HEENT: Atraumatic, PERRLA Lungs: Clear to auscultation, Normal air movement Cardiovascular: Normal S1, Normal S2 Musculoskeletal: Normal sensory function, Normal motor function Neuro: Normal speech Skin: Dry, Intact Psych/Mental Status: Mental status NL, Mood NL Medications Current Medications Medications Dose Ordered Sig/Brandi Route Start Time Stop Time Status Last Admin Dose Admin Azithromycin 250 ml @ 125 mls/hr DAILY IV 04/07/25 10:00 04/10/25 10:14 125 MLS/HR Allopurinol 100 mg DAILY PO 04/07/25 10:00 04/13/25 12:06 100 MG Atorvastatin Calcium 40 mg HS PO 04/07/25 22:00 04/12/25 22:41 40 MG Empaglifozin 25 mg DAILY PO 04/07/25 10:00 04/13/25 12:06 25 MG Gabapentin 300 mg DAILY PO 04/07/25 10:00 04/13/25 12:06 300 MG Diagnostic Test (Pha) 1 strip Q6HR 04/07/25 00:00 04/13/25 05:46 1 STRIP Insulin Human Regular Q6HR SC 04/07/25 00:00 04/13/25 05:47 3 UNITS Dextrose 50 ml UD PRN IV 04/06/25 23:45 Ondansetron HCl 4 mg Q4HP PRN IV 04/06/25 23:45 Acetaminophen 650 mg Q6HP PRN PO 04/06/25 23:45 Nitroglycerin 0.4 mg Q5MINP PRN SL 04/06/25 23:45 Morphine Sulfate 2 mg Q30M PRN IV 04/06/25 23:45 Ceftriaxone Sodium 50 ml @ 100 mls/hr DAILY@09 IV 04/07/25 09:00 04/13/25 09:11 100 MLS/HR Digoxin 0.125 mg DAILY PO 04/07/25 10:00 04/13/25 12:05 0.125 MG Ipratropium [place] 0.5 mg Q6HWA NEB 04/08/25 18:00 04/13/25 11:07 0.5 MG Albuterol 2.5 mg Q6HWA NEB 04/08/25 18:00 04/13/25 11:07 2.5 MG Budesonide 0.5 mg BID NEB 04/08/25 22:00 04/13/25 06:21 0.5 MG Budesonide 0.5 mg BID NEB 04/08/25 22:00 UNV Colchicine 0.6 mg Q12HR PO 04/11/25 22:00 04/13/25 12:06 0.6 MG Docusate Sodium 100 mg BID PO 04/11/25 22:00 04/13/25 12:06 100 MG Lactulose 30 ml DAILYPRN PRN PO 04/11/25 12:30 04/12/25 17:12 30 ML Laboratory Results Laboratory Tests 04/10/25 05:37 Microbiology Microbiology Date/Time Source Procedure Growth Status 04/09/25 12:40 Pleural Fluid Gram Stain - Final Resulted 04/09/25 12:40 Pleural Fluid Body Fluid Culture - Preliminary No growth Resulted Assessment/Plan Assessment/Plan B pleural effusions s/p B thoracentesis Right lung masses Rule out Lung cancer B pneumonia CKD HTN Afib on Eliquis CAD on Plavix COPD on home O2 Diastolic HF DM2 PLAN: Send pleural fluid to lab for LDH, glucose, protein, cell count, gram stain, C&S, and cytology IV antibiotics: Rocephin and Zithromax Hold Eliquis and Plavix for CT guided biopsy IR consult for CT guided lung mass biopsy O2 as needed Monitor closely 04/10/2025: Discussed the case with the patient with the his at the bedside Now the patient and the says that they do not want to have the lung mass biopsy done because he is not willing to have treatment for it anyway whether it is going to be chemo or radiation or surgery He would like to go home He would like to wait however until he gets a pathology report from the thoracentesis pleural fluid that we drained yesterday He is also interested in having a PleurX catheter for continuous drainage at home We will discuss the above with pulmonary service for possible PleurX catheter placement before discharge Cancel the biopsy Oxygen as needed 04/11/2025: Constipation: Start Colace and lactulose Right knee swelling most likely due to gout: Get x-ray of the right knee, colchicine 0.6 mg twice a day Gout: Continue allopurinol Generalized weakness: Start physical therapy Pleural effusion: Repeat chest x-ray Pathology is still pending on pleural effusion thoracentesis done 2 days ago Monitor closely Continue to hold Eliquis and Plavix for anticipation for doing PleurX catheters 04/13/2025: Resume Eliquis and Plavix Hold the discharge Arrange placement at a long-term facility for physical therapy Consult social insurance adviser to arrange SNF for physical therapy Cytology is still pending on pleural fluid Plan discussed with: Patient My Orders Orders - ORVILLE FRANKS MD Procedure Category Date Status Time * Behavioral Psychologist CONS 04/12/25 Transmitted Consult Date of Service: Apr 13, 2025 Billing Provider: ORVILLE FRANKS MD Common Visit Codes: NOT BILLABLE ORVILLE FRANKS MD Apr 13, 2025 12:23
[2025-04-13] MEDS: CLOPIDOGREL BISULFATE 75 MG TAB ONE (13:08)
[2025-04-13] MEDS: CLOPIDOGREL BISULFATE 75 MG TAB PO ONE (13:14)
--- NOTE | 2025-04-13 14:59 | DVHPN2 ---
Progress Note - Dictate Date Seen: Apr 13, 2025 Medical Necessity Reason Pt with a Central, PICC or Fol: No vital signs Vital Sign Date Time Temp Pulse Resp B/P (MAP) Pulse Ox O2 Delivery O2 Flow Rate FiO2 04/13/25 12:35 97.9 69 19 147/78 (101) 98 97.9 04/13/25 11:00 Nasal Cannula 3.0 04/13/25 11:00 32 Total Intake and Output 04/12/25 04/12/25 04/13/25 15:00 23:00 07:00 Intake Total 50 ml 750 ml 500 ml Output Total 700 ml 110 ml Balance 50 ml 50 ml 390 ml medications Current Medications Medications Dose Ordered Sig/Brandi Route Start Time Stop Time Status Last Admin Dose Admin Azithromycin 250 ml @ 125 mls/hr DAILY IV 04/07/25 10:00 04/10/25 10:14 125 MLS/HR Allopurinol 100 mg DAILY PO 04/07/25 10:00 04/13/25 12:06 100 MG Atorvastatin Calcium 40 mg HS PO 04/07/25 22:00 04/12/25 22:41 40 MG Empaglifozin 25 mg DAILY PO 04/07/25 10:00 04/13/25 12:06 25 MG Gabapentin 300 mg DAILY PO 04/07/25 10:00 04/13/25 12:06 300 MG Diagnostic Test (Pha) 1 strip Q6HR 04/07/25 00:00 04/13/25 05:46 1 STRIP Insulin Human Regular Q6HR SC 04/07/25 00:00 04/13/25 13:14 4 UNITS Dextrose 50 ml UD PRN IV 04/06/25 23:45 Ondansetron HCl 4 mg Q4HP PRN IV 04/06/25 23:45 Acetaminophen 650 mg Q6HP PRN PO 04/06/25 23:45 Nitroglycerin 0.4 mg Q5MINP PRN SL 04/06/25 23:45 Morphine Sulfate 2 mg Q30M PRN IV 04/06/25 23:45 Ceftriaxone Sodium 50 ml @ 100 mls/hr DAILY@09 IV 04/07/25 09:00 04/13/25 09:11 100 MLS/HR Digoxin 0.125 mg DAILY PO 04/07/25 10:00 04/13/25 12:05 0.125 MG Ipratropium [place] 0.5 mg Q6HWA NEB 04/08/25 18:00 04/13/25 11:07 0.5 MG Albuterol 2.5 mg Q6HWA NEB 04/08/25 18:00 04/13/25 11:07 2.5 MG Budesonide 0.5 mg BID NEB 04/08/25 22:00 04/13/25 06:21 0.5 MG Budesonide 0.5 mg BID NEB 04/08/25 22:00 UNV Colchicine 0.6 mg Q12HR PO 04/11/25 22:00 04/13/25 12:06 0.6 MG Docusate Sodium 100 mg BID PO 04/11/25 22:00 04/13/25 12:06 100 MG Lactulose 30 ml DAILYPRN PRN PO 04/11/25 12:30 04/12/25 17:12 30 ML Clopidogrel Bisulfate 75 mg DAILY PO 04/14/25 10:00 Apixaban 2.5 mg BID PO 04/13/25 22:00 UNV Acetaminophen/ Hydrocodone Bitart 1 tab Q6HPRN PRN PO 04/13/25 15:00 UNV laboratory and microbiology Laboratory Tests 04/10/25 05:37 Test 04/10/25 05:37 Range/Units Serum Glucose 149 H 74-106 mg/dL Assessment/Plan Impression Acute hypoxemic respiratory failure Pleural effusions Emphysema Atelectasis Patient seen and examined Events Low oxygen requirements On 2 liters nasal cannula No acute events S/p bilat thora Case discussed with Dr. Sandy Patient is okay to discharge 1. 3.4 cm spiculated mass in the right midlung zone. This is worrisome for neoplasm, clinical correlation recommended. 2. 1 cm spiculated density right lung base laterally, possible infection versus neoplasm, clinical correlation recommended. 3. Moderate-sized infiltrate at the left lung base. 4. Large right effusion and moderate to large left effusion. 5. Cardiomegaly. 6. Small to mild pericardial effusion. pt declining lung bx management Okay to discharge from pulmonary standpoint may require pleurX will follow up in office with Dr. Ojeda Dietary Evaluation Review Comments: Monitor PO intake, lab values, weight trend, and I/O Expected Outcomes/Goals: Lab values to improve FU 3-5 days Plan discussed with: Patient EULALIO VIVEROS MD Apr 13, 2025 14:59
[2025-04-13] MEDS ORDERED: HYDROcodone-ACET 5/325MG TAB PO PRN (15:00)
[2025-04-13] MEDS: APIXABAN 5 MG TAB PO SCH (21:08)
[2025-04-14] VITALS (15 sets, daily range): BP systolic 111–148; BP diastolic 64–75; PULSE 18–77; RESP 16–96; TEMP 97.6–98.7; O2SAT 94–100
--- NOTE | 2025-04-14 08:22 | DVHPN2 ---
Subjective He is very short of breath now Feels heaviness in his chest He is on 4 L nasal cannula Reviewed: Care Plan, H&P, Labs, Medications Changes from previous H/P or p: Changes General: Per HPI Objective Vitals Vital Signs Date Time Temp Pulse Resp B/P (MAP) Pulse Ox O2 Delivery O2 Flow Rate FiO2 04/14/25 05:00 97.6 70 18 123/66 (85) 95 97.6 04/13/25 20:22 Nasal Cannula* 3 32 Intake/Output Intake and Output 04/14/25 07:00 Intake Total 320 ml Output Total 870 ml Balance -550 ml Intake Oral 270 ml IV Total 50 ml Output Urine Total 870 ml General Appearance: Alert, Oriented X3, Cooperative, mild distress HEENT: Atraumatic, PERRLA Lungs: Clear to auscultation, Normal air movement Cardiovascular: Normal S1, Normal S2 Musculoskeletal: Normal sensory function, Normal motor function Neuro: Normal speech Skin: Dry, Intact Psych/Mental Status: Mental status NL, Mood NL Medications Current Medications Medications Dose Ordered Sig/Brandi Route Start Time Stop Time Status Last Admin Dose Admin Azithromycin 250 ml @ 125 mls/hr DAILY IV 04/07/25 10:00 04/10/25 10:14 125 MLS/HR Allopurinol 100 mg DAILY PO 04/07/25 10:00 04/13/25 12:06 100 MG Atorvastatin Calcium 40 mg HS PO 04/07/25 22:00 04/13/25 21:08 40 MG Empaglifozin 25 mg DAILY PO 04/07/25 10:00 04/13/25 12:06 25 MG Gabapentin 300 mg DAILY PO 04/07/25 10:00 04/13/25 12:06 300 MG Diagnostic Test (Pha) 1 strip Q6HR 04/07/25 00:00 04/14/25 05:37 1 STRIP Insulin Human Regular Q6HR SC 04/07/25 00:00 04/14/25 05:42 3 UNITS Dextrose 50 ml UD PRN IV 04/06/25 23:45 Ondansetron HCl 4 mg Q4HP PRN IV 04/06/25 23:45 Acetaminophen 650 mg Q6HP PRN PO 04/06/25 23:45 Nitroglycerin 0.4 mg Q5MINP PRN SL 04/06/25 23:45 Morphine Sulfate 2 mg Q30M PRN IV 04/06/25 23:45 Ceftriaxone Sodium 50 ml @ 100 mls/hr DAILY@09 IV 04/07/25 09:00 04/13/25 09:11 100 MLS/HR Digoxin 0.125 mg DAILY PO 04/07/25 10:00 04/13/25 12:05 0.125 MG Ipratropium [place] 0.5 mg Q6HWA NEB 04/08/25 18:00 04/13/25 17:45 0.5 MG Albuterol 2.5 mg Q6HWA NEB 04/08/25 18:00 04/13/25 17:45 2.5 MG Budesonide 0.5 mg BID NEB 04/08/25 22:00 04/13/25 17:45 0.5 MG Budesonide 0.5 mg BID NEB 04/08/25 22:00 UNV Colchicine 0.6 mg Q12HR PO 04/11/25 22:00 04/13/25 21:08 0.6 MG Docusate Sodium 100 mg BID PO 04/11/25 22:00 04/13/25 21:08 100 MG Lactulose 30 ml DAILYPRN PRN PO 04/11/25 12:30 04/14/25 01:16 30 ML Clopidogrel Bisulfate 75 mg DAILY PO 04/14/25 10:00 Apixaban 5 mg BID PO 04/13/25 22:00 04/13/25 21:08 5 MG Acetaminophen/ Hydrocodone Bitart 1 tab Q6HPRN PRN PO 04/13/25 15:00 Laboratory Results Laboratory Tests 04/10/25 05:37 Microbiology Microbiology Date/Time Source Procedure Growth Status 04/09/25 12:40 Pleural Fluid Gram Stain - Final Resulted 04/09/25 12:40 Pleural Fluid Body Fluid Culture - Preliminary No growth Resulted Assessment/Plan Assessment/Plan B pleural effusions s/p B thoracentesis Right lung masses Rule out Lung cancer B pneumonia CKD HTN Afib on Eliquis CAD on Plavix COPD on home O2 Diastolic HF DM2 PLAN: Send pleural fluid to lab for LDH, glucose, protein, cell count, gram stain, C&S, and cytology IV antibiotics: Rocephin and Zithromax Hold Eliquis and Plavix for CT guided biopsy IR consult for CT guided lung mass biopsy O2 as needed Monitor closely 04/10/2025: Discussed the case with the patient with the his at the bedside Now the patient and the says that they do not want to have the lung mass biopsy done because he is not willing to have treatment for it anyway whether it is going to be chemo or radiation or surgery He would like to go home He would like to wait however until he gets a pathology report from the thoracentesis pleural fluid that we drained yesterday He is also interested in having a PleurX catheter for continuous drainage at home We will discuss the above with pulmonary service for possible PleurX catheter placement before discharge Cancel the biopsy Oxygen as needed 04/11/2025: Constipation: Start Colace and lactulose Right knee swelling most likely due to gout: Get x-ray of the right knee, colchicine 0.6 mg twice a day Gout: Continue allopurinol Generalized weakness: Start physical therapy Pleural effusion: Repeat chest x-ray Pathology is still pending on pleural effusion thoracentesis done 2 days ago Monitor closely Continue to hold Eliquis and Plavix for anticipation for doing PleurX catheters 04/13/2025: Resume Eliquis and Plavix Hold the discharge Arrange placement at a [facility] facility for physical therapy Consult manager social responsibility to arrange SNF for physical therapy Cytology is still pending on pleural fluid 04/14/2025: Possible recurrent pleural effusion Get a portable chest x-ray If the pleural effusion is back then he might need PleurX catheters inserted Hold Plavix and Eliquis again in anticipation for possible procedure Monitor closely The patient is still thinking about discharge planning whether he wants to go to SNF versus hospice at home Plan discussed with: Patient My Orders Orders - ORVILLE FRANKS MD Procedure Category Date Status Time * Hvac Journeyman CONS 04/13/25 Transmitted Consult Clopidogrel Bisulfate PHA 04/14/25 In Process (Plavix) 10:00 BIPAP RT 04/13/25 Logged 14:55 Hydrocodone-Acet PHA 04/13/25 In Process 5/325mg Tab ([place] 15:00 Apixaban (Eliquis) PHA 04/13/25 In Process 22:00 * Wound Consult CONS 04/13/25 Transmitted * Dietary Consult CONS 04/13/25 Transmitted 17:29 Date of Service: Apr 14, 2025 Billing Provider: ORVILLE FRANKS MD Common Visit Codes: NOT BILLABLE ORVILLE FRANKS MD Apr 14, 2025 08:22
--- NOTE | 2025-04-14 09:51 | DVH ---
CHEST RADIOGRAPH Indication: pleural effusion Technique: Single frontal view of the chest was obtained. Comparison: XY CHEST PORTABLE on DOS: 04/11/25 Findings: Left chest wall pacemaker. Persistent pulmonary vascular congestion. Small bilateral pleural effusions, slightly increased on the right. No pneumothorax. Stable cardiomediastinal silhouette. IMPRESSION: Small bilateral pleural effusions, slightly increased on the right.
[2025-04-14] MEDS ORDERED: CLOPIDOGREL BISULFATE 75 MG TAB PO SCH (10:00)
--- NOTE | 2025-04-14 17:16 | DVHPN2 ---
Progress Note - Dictate Date Seen: Apr 14, 2025 Medical Necessity Reason Pt with a Central, PICC or Fol: No vital signs Vital Sign Date Time Temp Pulse Resp B/P (MAP) Pulse Ox O2 Delivery O2 Flow Rate FiO2 04/14/25 10:01 77 16 100 04/14/25 09:55 Nasal Cannula 3.0 04/14/25 09:55 32 04/14/25 09:00 98.3 143/67 (92) 98.3 Total Intake and Output 04/13/25 04/13/25 04/14/25 15:00 23:00 07:00 Intake Total 50 ml 150 ml 120 ml Output Total 550 ml 320 ml Balance 50 ml -400 ml -200 ml medications Current Medications Medications Dose Ordered Sig/Brandi Route Start Time Stop Time Status Last Admin Dose Admin Azithromycin 250 ml @ 125 mls/hr DAILY IV 04/07/25 10:00 04/14/25 10:00 125 MLS/HR Allopurinol 100 mg DAILY PO 04/07/25 10:00 04/14/25 09:49 100 MG Atorvastatin Calcium 40 mg HS PO 04/07/25 22:00 04/13/25 21:08 40 MG Empaglifozin 25 mg DAILY PO 04/07/25 10:00 04/14/25 09:49 25 MG Gabapentin 300 mg DAILY PO 04/07/25 10:00 04/14/25 09:49 300 MG Diagnostic Test (Pha) 1 strip Q6HR 04/07/25 00:00 04/14/25 11:23 1 STRIP Insulin Human Regular Q6HR SC 04/07/25 00:00 04/14/25 12:01 2 UNITS Dextrose 50 ml UD PRN IV 04/06/25 23:45 Ondansetron HCl 4 mg Q4HP PRN IV 04/06/25 23:45 Acetaminophen 650 mg Q6HP PRN PO 04/06/25 23:45 Nitroglycerin 0.4 mg Q5MINP PRN SL 04/06/25 23:45 Morphine Sulfate 2 mg Q30M PRN IV 04/06/25 23:45 Ceftriaxone Sodium 50 ml @ 100 mls/hr DAILY@09 IV 04/07/25 09:00 04/14/25 09:48 100 MLS/HR Digoxin 0.125 mg DAILY PO 04/07/25 10:00 04/14/25 09:49 0.125 MG Ipratropium [place] 0.5 mg Q6HWA NEB 04/08/25 18:00 04/14/25 09:57 0.5 MG Albuterol 2.5 mg Q6HWA NEB 04/08/25 18:00 04/14/25 09:57 2.5 MG Budesonide 0.5 mg BID NEB 04/08/25 22:00 04/13/25 17:45 0.5 MG Budesonide 0.5 mg BID NEB 04/08/25 22:00 UNV Colchicine 0.6 mg Q12HR PO 04/11/25 22:00 04/14/25 09:48 0.6 MG Docusate Sodium 100 mg BID PO 04/11/25 22:00 04/14/25 09:49 100 MG Lactulose 30 ml DAILYPRN PRN PO 04/11/25 12:30 04/14/25 15:20 30 ML Acetaminophen/ Hydrocodone Bitart 1 tab Q6HPRN PRN PO 04/13/25 15:00 laboratory and microbiology Laboratory Tests 04/10/25 05:37 Test 04/10/25 05:37 Range/Units Serum Glucose 149 H 74-106 mg/dL Assessment/Plan Impression Acute hypoxemic respiratory failure Pleural effusions Emphysema Atelectasis Patient seen and examined Events Low oxygen requirements On 2 liters nasal cannula No acute events S/p bilat thora Case discussed with Dr. Sandy Patient is okay to discharge 1. 3.4 cm spiculated mass in the right midlung zone. This is worrisome for neoplasm, clinical correlation recommended. 2. 1 cm spiculated density right lung base laterally, possible infection versus neoplasm, clinical correlation recommended. 3. Moderate-sized infiltrate at the left lung base. 4. Large right effusion and moderate to large left effusion. 5. Cardiomegaly. 6. Small to mild pericardial effusion. pt declining lung bx management Okay to discharge from pulmonary standpoint may require pleurX will follow up in office with Dr. Ojeda Dietary Evaluation Review Comments: Monitor PO intake, lab values, weight trend, and I/O Expected Outcomes/Goals: Lab values to improve FU 3-5 days Plan discussed with: Patient EULALIO VIVEROS MD Apr 14, 2025 17:16
[2025-04-15] VITALS (15 sets, daily range): BP systolic 142–158; BP diastolic 65–81; PULSE 66–79; RESP 16–20; TEMP 97.4–98.7; O2SAT 96–100
--- NOTE | 2025-04-15 11:57 | DVHPN2 ---
Subjective No new complaints He is on 4 L nasal cannula Chest x-ray showed mild bilateral pleural effusion Reviewed: Care Plan, H&P, Labs, Medications Changes from previous H/P or p: Changes General: Per HPI Objective Vitals Vital Signs Date Time Temp Pulse Resp B/P (MAP) Pulse Ox O2 Delivery O2 Flow Rate FiO2 04/15/25 11:10 78 18 100 04/15/25 09:00 98.2 147/81 (103) 98.2 04/15/25 08:00 Nasal Cannula* 3 32 Intake/Output Intake and Output 04/15/25 07:00 Intake Total 1015 ml Output Total 750 ml Balance 265 ml Intake Oral 715 ml IV Total 300 ml Output Urine Total 750 ml # Bowel Movements 1 General Appearance: Alert, Oriented X3, Cooperative, mild distress HEENT: Atraumatic, PERRLA Lungs: Clear to auscultation, Normal air movement Cardiovascular: Normal S1, Normal S2 Musculoskeletal: Normal sensory function, Normal motor function Neuro: Normal speech Skin: Dry, Intact Psych/Mental Status: Mental status NL, Mood NL Medications Current Medications Medications Dose Ordered Sig/Brandi Route Start Time Stop Time Status Last Admin Dose Admin Azithromycin 250 ml @ 125 mls/hr DAILY IV 04/07/25 10:00 04/15/25 09:48 125 MLS/HR Allopurinol 100 mg DAILY PO 04/07/25 10:00 04/15/25 09:49 100 MG Atorvastatin Calcium 40 mg HS PO 04/07/25 22:00 04/14/25 21:22 40 MG Empaglifozin 25 mg DAILY PO 04/07/25 10:00 04/15/25 09:48 25 MG Gabapentin 300 mg DAILY PO 04/07/25 10:00 04/15/25 09:48 300 MG Diagnostic Test (Pha) 1 strip Q6HR 04/07/25 00:00 04/15/25 11:30 1 STRIP Insulin Human Regular Q6HR SC 04/07/25 00:00 04/15/25 11:40 3 UNITS Dextrose 50 ml UD PRN IV 04/06/25 23:45 Ondansetron HCl 4 mg Q4HP PRN IV 04/06/25 23:45 Acetaminophen 650 mg Q6HP PRN PO 04/06/25 23:45 Nitroglycerin 0.4 mg Q5MINP PRN SL 04/06/25 23:45 Morphine Sulfate 2 mg Q30M PRN IV 04/06/25 23:45 Ceftriaxone Sodium 50 ml @ 100 mls/hr DAILY@09 IV 04/07/25 09:00 04/15/25 09:48 100 MLS/HR Digoxin 0.125 mg DAILY PO 04/07/25 10:00 04/15/25 09:49 0.125 MG Ipratropium [place] 0.5 mg Q6HWA NEB 04/08/25 18:00 04/15/25 11:33 0.5 MG Albuterol 2.5 mg Q6HWA NEB 04/08/25 18:00 04/15/25 11:33 2.5 MG Budesonide 0.5 mg BID NEB 04/08/25 22:00 04/15/25 06:40 0.5 MG Budesonide 0.5 mg BID NEB 04/08/25 22:00 UNV Colchicine 0.6 mg Q12HR PO 04/11/25 22:00 04/15/25 09:49 0.6 MG Docusate Sodium 100 mg BID PO 04/11/25 22:00 04/15/25 09:48 100 MG Lactulose 30 ml DAILYPRN PRN PO 04/11/25 12:30 04/14/25 15:20 30 ML Acetaminophen/ Hydrocodone Bitart 1 tab Q6HPRN PRN PO 04/13/25 15:00 Laboratory Results Laboratory Tests 04/10/25 05:37 Microbiology Microbiology Date/Time Source Procedure Growth Status 04/09/25 12:40 Pleural Fluid Gram Stain - Final Complete 04/09/25 12:40 Pleural Fluid Body Fluid Culture - Final Complete Assessment/Plan Assessment/Plan B pleural effusions s/p B thoracentesis Right lung masses Rule out Lung cancer B pneumonia CKD HTN Afib on Eliquis CAD on Plavix COPD on home O2 Diastolic HF DM2 PLAN: Send pleural fluid to lab for LDH, glucose, protein, cell count, gram stain, C&S, and cytology IV antibiotics: Rocephin and Zithromax Hold Eliquis and Plavix for CT guided biopsy IR consult for CT guided lung mass biopsy O2 as needed Monitor closely 04/10/2025: Discussed the case with the patient with the his at the bedside Now the patient and the says that they do not want to have the lung mass biopsy done because he is not willing to have treatment for it anyway whether it is going to be chemo or radiation or surgery He would like to go home He would like to wait however until he gets a pathology report from the thoracentesis pleural fluid that we drained yesterday He is also interested in having a PleurX catheter for continuous drainage at home We will discuss the above with pulmonary service for possible PleurX catheter placement before discharge Cancel the biopsy Oxygen as needed 04/11/2025: Constipation: Start Colace and lactulose Right knee swelling most likely due to gout: Get x-ray of the right knee, colchicine 0.6 mg twice a day Gout: Continue allopurinol Generalized weakness: Start physical therapy Pleural effusion: Repeat chest x-ray Pathology is still pending on pleural effusion thoracentesis done 2 days ago Monitor closely Continue to hold Eliquis and Plavix for anticipation for doing PleurX catheters 04/13/2025: Resume Eliquis and Plavix Hold the discharge [facility]range [facility] at a detention facility for physical therapy Consult social sciences research scientist to arrange SNF for physical therapy Cytology is still pending on pleural fluid 04/14/2025: Possible recurrent pleural effusion Get a portable chest x-ray If the pleural effusion is back then he might need PleurX catheters inserted Hold Plavix and Eliquis again in anticipation for possible procedure Monitor closely The patient is still thinking about discharge planning whether he wants to go to SNF versus hospice at home 04/15/2025: Bilateral pleural effusions: Dr. Lewis is planning PleurX catheters tomorrow Arrange SNF for rehab and physical therapy Plan discussed with: Patient My Orders Orders - ORVILLE FRANKS MD Procedure Category Date Status Time Apply Z-Guard [facility] 04/14/25 In Process 10:50 Date of Service: Apr 15, 2025 Billing Provider: ORVILLE FRANKS MD Common Visit Codes: NOT BILLABLE ORVILLE FRANKS MD Apr 15, 2025 11:57
--- NOTE | 2025-04-15 17:18 | DVHPN2 ---
Progress Note - Dictate Date Seen: Apr 15, 2025 Medical Necessity Reason Pt with a Central, PICC or Fol: No vital signs Vital Sign Date Time Temp Pulse Resp B/P (MAP) Pulse Ox O2 Delivery O2 Flow Rate FiO2 04/15/25 13:00 97.4 69 20 148/73 (98) 98 97.4 04/15/25 10:00 Nasal Cannula* 4 36 Total Intake and Output 04/14/25 04/14/25 04/15/25 15:00 23:00 07:00 Intake Total 50 ml 725 ml 240 ml Output Total 650 ml 100 ml Balance 50 ml 75 ml 140 ml medications Current Medications Medications Dose Ordered Sig/Brandi Route Start Time Stop Time Status Last Admin Dose Admin Azithromycin 250 ml @ 125 mls/hr DAILY IV 04/07/25 10:00 04/15/25 09:48 125 MLS/HR Allopurinol 100 mg DAILY PO 04/07/25 10:00 04/15/25 09:49 100 MG Atorvastatin Calcium 40 mg HS PO 04/07/25 22:00 04/14/25 21:22 40 MG Empaglifozin 25 mg DAILY PO 04/07/25 10:00 04/15/25 09:48 25 MG Gabapentin 300 mg DAILY PO 04/07/25 10:00 04/15/25 09:48 300 MG Diagnostic Test (Pha) 1 strip Q6HR 04/07/25 00:00 04/15/25 11:30 1 STRIP Insulin Human Regular Q6HR SC 04/07/25 00:00 04/15/25 11:40 3 UNITS Dextrose 50 ml UD PRN IV 04/06/25 23:45 Ondansetron HCl 4 mg Q4HP PRN IV 04/06/25 23:45 Acetaminophen 650 mg Q6HP PRN PO 04/06/25 23:45 Nitroglycerin 0.4 mg Q5MINP PRN SL 04/06/25 23:45 Morphine Sulfate 2 mg Q30M PRN IV 04/06/25 23:45 Ceftriaxone Sodium 50 ml @ 100 mls/hr DAILY@09 IV 04/07/25 09:00 04/15/25 09:48 100 MLS/HR Digoxin 0.125 mg DAILY PO 04/07/25 10:00 04/15/25 09:49 0.125 MG Ipratropium [place] 0.5 mg Q6HWA [facility] 04/08/25 18:00 04/15/25 11:33 0.5 MG Albuterol 2.5 mg Q6HWA NEB 04/08/25 18:00 04/15/25 11:33 2.5 MG Budesonide 0.5 mg BID NEB 04/08/25 22:00 04/15/25 06:40 0.5 MG Budesonide 0.5 mg BID NEB 04/08/25 22:00 UNV Colchicine 0.6 mg Q12HR PO 04/11/25 22:00 04/15/25 09:49 0.6 MG Docusate Sodium 100 mg BID PO 04/11/25 22:00 04/15/25 09:48 100 MG Lactulose 30 ml DAILYPRN PRN PO 04/11/25 12:30 04/14/25 15:20 30 ML Acetaminophen/ Hydrocodone Bitart 1 tab Q6HPRN PRN PO 04/13/25 15:00 laboratory and microbiology Laboratory Tests 04/10/25 05:37 Test 04/10/25 05:37 Range/Units Serum Glucose 149 H 74-106 mg/dL Assessment/Plan Impression Acute hypoxemic respiratory failure Pleural effusions Emphysema Atelectasis Patient seen and examined Events Low oxygen requirements On 2 liters nasal cannula No distress S/p bilat thora CT of the chest reviewed: 1. 3.4 cm spiculated mass in the right midlung zone. This is worrisome for neoplasm, clinical correlation recommended. 2. 1 cm spiculated density right lung base laterally, possible infection versus neoplasm, clinical correlation recommended. 3. Moderate-sized infiltrate at the left lung base. 4. Large right effusion and moderate to large left effusion. 5. Cardiomegaly. 6. Small to mild pericardial effusion. pt declining lung bx management will consider bilateral pleurX placement will follow up in office Dietary Evaluation Review Comments: Monitor PO intake, lab values, weight trend, and I/O Expected Outcomes/Goals: Lab values to improve FU 3-5 days Plan discussed with: Patient EULALIO VIVEROS MD Apr 15, 2025 17:18
[2025-04-16] VITALS (19 sets, daily range): BP systolic 107–174; BP diastolic 71–85; PULSE 67–88; RESP 17–21; TEMP 37.1; O2SAT 94–100
[2025-04-16 06:27] LABS: Hematocrit 40.1 % (41.0-53.0); Hemoglobin 12.8 g/dL (13.5-17.5); Mean Corpuscular Hemoglobin 29.3 pg (28.0-32.0); Mean Corpuscular Volume 91.7 fL (80.0-100.0); Nucleated Red Blood Cells % 0.0 %
[2025-04-16 06:45] LABS: Alanine Aminotransferase 21 U/L (7-40); Albumin 3.7 g/dL (3.2-4.8); Alkaline Phosphatase 91 U/L (46-116); Anion Gap 6 (5-15); BUN/Creatinine Ratio 27.9 (10.0-20.0); Chloride 105 mmol/L (98-107); Magnesium 2.4 mg/dL (1.6-2.6); Potassium 4.2 mmol/L (3.5-5.1); Sodium 143 mmol/L (136-145); Total Protein 6.2 g/dL (5.7-8.2)
[2025-04-16 06:46] LABS: Bilirubin, Total 0.5 mg/dL (0.2-1.0); Blood Urea Nitrogen 34 mg/dL (9-23); Calcium 11.0 mg/dL (8.7-10.4); Carbon Dioxide 32 mmol/L (20-31); Glucose 129 mg/dL (74-106)
--- NOTE | 2025-04-16 10:25 | DVHPN2 ---
Subjective Complains of increased shortness of breaths and pressure in his chest bilaterally Chest x-ray shows increased pleural effusions Scheduled for PleurX catheters today and then he can be discharged to SNF Reviewed: Care Plan, H&P, Labs, Medications Changes from previous H/P or p: Changes General: Per HPI Objective Vitals Vital Signs Date Time Temp Pulse Resp B/P (MAP) Pulse Ox O2 Delivery O2 Flow Rate FiO2 04/16/25 08:00 Nasal Cannula* 3 32 04/16/25 05:00 98.2 69 19 151/72 (98) 96 98.2 Intake/Output Intake and Output 04/16/25 07:00 Intake Total 1270 ml Output Total 1325 ml Balance -55 ml Intake Oral 970 ml IV Total 300 ml Output Urine Total 1325 ml General Appearance: Alert, Oriented X3, Cooperative, mild distress HEENT: Atraumatic, PERRLA Lungs: Clear to auscultation, Normal air movement Cardiovascular: Normal S1, Normal S2 Musculoskeletal: Normal sensory function, Normal motor function Neuro: Normal speech Skin: Dry, Intact Psych/Mental Status: Mental status NL, Mood NL Medications Current Medications Medications Dose Ordered Sig/Brandi Route Start Time Stop Time Status Last Admin Dose Admin Azithromycin 250 ml @ 125 mls/hr DAILY IV 04/07/25 10:00 04/15/25 09:48 125 MLS/HR Allopurinol 100 mg DAILY PO 04/07/25 10:00 04/15/25 09:49 100 MG Atorvastatin Calcium 40 mg HS PO 04/07/25 22:00 04/15/25 22:47 40 MG Empaglifozin 25 mg DAILY PO 04/07/25 10:00 04/15/25 09:48 25 MG Gabapentin 300 mg DAILY PO 04/07/25 10:00 04/15/25 09:48 300 MG Diagnostic Test (Pha) 1 strip Q6HR 04/07/25 00:00 04/16/25 06:03 1 STRIP Insulin Human Regular Q6HR SC 04/07/25 00:00 04/16/25 00:57 2 UNITS Dextrose 50 ml UD PRN IV 04/06/25 23:45 Ondansetron HCl 4 mg Q4HP PRN IV 04/06/25 23:45 Acetaminophen 650 mg Q6HP PRN PO 04/06/25 23:45 Nitroglycerin 0.4 mg Q5MINP PRN SL 04/06/25 23:45 Morphine Sulfate 2 mg Q30M PRN IV 04/06/25 23:45 Ceftriaxone Sodium 50 ml @ 100 mls/hr DAILY@09 IV 04/07/25 09:00 04/15/25 09:48 100 MLS/HR Digoxin 0.125 mg DAILY PO 04/07/25 10:00 04/15/25 09:49 0.125 MG Ipratropium [place] 0.5 mg Q6HWA NEB 04/08/25 18:00 04/16/25 07:00 0.5 MG Albuterol 2.5 mg Q6HWA NEB 04/08/25 18:00 04/16/25 07:00 2.5 MG Budesonide 0.5 mg BID NEB 04/08/25 22:00 04/16/25 07:00 0.5 MG Budesonide 0.5 mg BID NEB 04/08/25 22:00 UNV Colchicine 0.6 mg Q12HR PO 04/11/25 22:00 04/15/25 22:47 0.6 MG Docusate Sodium 100 mg BID PO 04/11/25 22:00 04/15/25 22:47 100 MG Lactulose 30 ml DAILYPRN PRN PO 04/11/25 12:30 04/14/25 15:20 30 ML Acetaminophen/ Hydrocodone Bitart 1 tab Q6HPRN PRN PO 04/13/25 15:00 Laboratory Results Laboratory Tests 04/16/25 05:45 Chemistry Test 04/16/25 05:45 Albumin 3.7 g/dL (3.2-4.8) Calcium Level 11.0 mg/dL (8.7-10.4) H Magnesium Level 2.4 mg/dL (1.6-2.6) Total Protein 6.2 g/dL (5.7-8.2) LFT Test 04/16/25 05:45 Alanine Aminotransferase (ALT) 21 U/L (7-40) Alkaline Phosphatase 91 U/L (46-116) Aspartate Amino Transferase (AST) 26 U/L (13-40) Total Bilirubin 0.5 mg/dL (0.2-1.0) Microbiology Microbiology Date/Time Source Procedure Growth Status 04/09/25 12:40 Pleural Fluid Gram Stain - Final Complete 04/09/25 12:40 Pleural Fluid Body Fluid Culture - Final Complete Assessment/Plan Assessment/Plan B pleural effusions s/p B thoracentesis Right lung masses Rule out Lung cancer B pneumonia CKD HTN Afib on Eliquis CAD on Plavix COPD on home O2 Diastolic HF DM2 PLAN: Send pleural fluid to lab for LDH, glucose, protein, cell count, gram stain, C&S, and cytology IV antibiotics: Rocephin and Zithromax Hold Eliquis and Plavix for CT guided biopsy IR consult for CT guided lung mass biopsy O2 as needed Monitor closely 04/10/2025: Discussed the case with the patient with the his at the bedside Now the patient and the says that they do not want to have the lung mass biopsy done because he is not willing to have treatment for it anyway whether it is going to be chemo or radiation or surgery He would like to go home He would like to wait however until he gets a pathology report from the thoracentesis pleural fluid that we drained yesterday He is also interested in having a PleurX catheter for continuous drainage at home We will discuss the above with pulmonary service for possible PleurX catheter placement before discharge Cancel the biopsy Oxygen as needed 04/11/2025: Constipation: Start Colace and lactulose Right knee swelling most likely due to gout: Get x-ray of the right knee, colchicine 0.6 mg twice a day Gout: Continue allopurinol Generalized weakness: Start physical therapy Pleural effusion: Repeat chest x-ray Pathology is still pending on pleural effusion thoracentesis done 2 days ago Monitor closely Continue to hold Eliquis and Plavix for anticipation for doing PleurX catheters 04/13/2025: Resume Eliquis and Plavix Hold the discharge Arrange placement at a halfway facility for physical therapy Consult social welfare research worker to arrange SNF for physical therapy Cytology is still pending on pleural fluid 04/14/2025: Possible recurrent pleural effusion Get a portable chest x-ray If the pleural effusion is back then he might need PleurX catheters inserted Hold Plavix and Eliquis again in anticipation for possible procedure Monitor closely The patient is still thinking about discharge planning whether he wants to go to SNF versus hospice at home 04/15/2025: Bilateral pleural effusions: Dr. Lewis is planning PleurX catheters tomorrow Arrange SNF for rehab and physical therapy 04/16/2025: PleurX catheter to be done today Discharge to SNF afterwards Plan discussed with: Patient Date of Service: Apr 16, 2025 Billing Provider: ORVILLE FRANKS MD Common Visit Codes: NOT BILLABLE ORVILLE FRANKS MD Apr 16, 2025 10:25
--- NOTE | 2025-04-16 11:16 | DVH ---
Indication: S/P PLURX CATH PLACEMENT Technique: XY CHEST XRAY 1 VIEWXY Comparison: 04/14/2025 FINDINGS/IMPRESSION: PleurX catheter projects over the right lung base. There is also a catheter projecting over the left lung base which could represent another PleurX catheter. Small right pneumothorax, approximately 10-20%. No midline shift. Left chest dual lead cardiac pacing device. Cardiomegaly and bilateral patchy airspace opacities, [id number]. Small bilateral pleural effusions, decreased in the interval.
[2025-04-16] MEDS: MORPHINE SULFATE 4 MG/ML SYR/VIAL IV ONE (15:55)
[2025-04-16 15:57] LABS: Base Excess -2.6 mmol/L (-2.0-3.0)
--- NOTE | 2025-04-16 16:16 | DVH ---
CHEST RADIOGRAPH Indication: RESPIRATORY DISTRESS Technique: XY CHEST XRAY 1 VIEW COMPARISON: 04/16/2025 FINDINGS: Left chest dual lead cardiac pacing device. Aortic valvular prosthesis. Chest tube/ pleurX catheters projecting over the bilateral lower chest. Small right pneumothorax, proximally 10-20%, unchanged. The cardiac silhouette is enlarged. The lungs demonstrate bilateral patchy airspace opacities. The pulmonary vasculature is prominent. Small to moderate bilateral pleural effusions, increased from prior. IMPRESSION: As above. Similar appearing small right pneumothorax. Increased pleural effusions bilaterally
--- NOTE | 2025-04-16 16:59 | DVHPN2 ---
Progress Note - Dictate Date Seen: Apr 16, 2025 Medical Necessity Reason Pt with a Central, PICC or Fol: No vital signs Vital Sign Date Time Temp Pulse Resp B/P (MAP) Pulse Ox O2 Delivery O2 Flow Rate FiO2 04/16/25 16:05 71 98 Facial BiPAP Mask 40 04/16/25 15:55 31 142/72 04/16/25 13:00 98.4 98.4 04/16/25 11:16 3 Total Intake and Output 04/15/25 04/15/25 04/16/25 15:00 23:00 07:00 Intake Total 1070 ml 200 ml Output Total 675 ml 650 ml Balance 395 ml -450 ml medications Current Medications Medications Dose Ordered Sig/Brandi Route Start Time Stop Time Status Last Admin Dose Admin Azithromycin 250 ml @ 125 mls/hr DAILY IV 04/07/25 10:00 04/16/25 10:00 125 MLS/HR Allopurinol 100 mg DAILY PO 04/07/25 10:00 04/16/25 10:38 100 MG Atorvastatin Calcium 40 mg HS PO 04/07/25 22:00 04/15/25 22:47 40 MG Empaglifozin 25 mg DAILY PO 04/07/25 10:00 04/16/25 10:39 25 MG Gabapentin 300 mg DAILY PO 04/07/25 10:00 04/16/25 10:39 300 MG Diagnostic Test (Pha) 1 strip Q6HR 04/07/25 00:00 04/16/25 11:34 1 STRIP Insulin Human Regular Q6HR SC 04/07/25 00:00 04/16/25 12:25 2 UNITS Dextrose 50 ml UD PRN IV 04/06/25 23:45 Ondansetron HCl 4 mg Q4HP PRN IV 04/06/25 23:45 Acetaminophen 650 mg Q6HP PRN PO 04/06/25 23:45 Nitroglycerin 0.4 mg Q5MINP PRN SL 04/06/25 23:45 Morphine Sulfate 2 mg Q30M PRN IV 04/06/25 23:45 Ceftriaxone Sodium 50 ml @ 100 mls/hr DAILY@09 IV 04/07/25 09:00 04/16/25 10:38 100 MLS/HR Digoxin 0.125 mg DAILY PO 04/07/25 10:00 04/16/25 10:40 0.125 MG Ipratropium [place] 0.5 mg Q6HWA NEB 04/08/25 18:00 04/16/25 11:16 0.5 MG Albuterol 2.5 mg Q6HWA NEB 04/08/25 18:00 04/16/25 11:16 2.5 MG Budesonide 0.5 mg BID NEB 04/08/25 22:00 04/16/25 07:00 0.5 MG Budesonide 0.5 mg BID NEB 04/08/25 22:00 UNV Colchicine 0.6 mg Q12HR PO 04/11/25 22:00 04/16/25 10:38 0.6 MG Docusate Sodium 100 mg BID PO 04/11/25 22:00 04/16/25 10:39 100 MG Lactulose 30 ml DAILYPRN PRN PO 04/11/25 12:30 04/14/25 15:20 30 ML Acetaminophen/ Hydrocodone Bitart 1 tab Q6HPRN PRN PO 04/13/25 15:00 laboratory and microbiology Laboratory Tests 04/16/25 05:45 Test 04/16/25 05:45 Range/Units Serum Glucose 129 H 74-106 mg/dL Assessment/Plan Impression Acute hypoxemic respiratory failure Pleural effusions Emphysema Atelectasis Patient seen and examined Events Low oxygen requirements On 2 liters nasal cannula No distress Bilateral pleurX catheter was placed at the bedside 1 liter was drained from the left and right pleural space See separate note for a procedure in detail pt declining lung bx management Patient is okay to discharge from pulmonary standpoint Drain up to 1 liter from pleurX twice weekly, alternate sides Dietary Evaluation Review Comments: Monitor PO intake, lab values, weight trend, and I/O Expected Outcomes/Goals: Lab values to improve FU 3-5 days Plan discussed with: Patient EULALIO VIVEROS MD Apr 16, 2025 16:59
--- NOTE | 2025-04-16 17:04 | DVHNC2 ---
Procedure - Procedure- Left sided pleurX placement ultrasound guided Indication- Recurrent pleural effusions Procedure in detail Consent was obtained and timeout performed per protocol. The patient was placed in the sitting position and ultrasound SonoSite was used to localize pleural fluid. ChloraPrep was used to clean the operative field, sterile drapes to cover the area and Lidocaine for local analgesia. Using left axillary approach, the left pleural space was cannulated and the guide wire was passed via introducer. Subcutaneous tunneling was achieved with a tunneler and size 15.5 Nep[place]e pleurX catheter was advanced in the left pleural space via peel-away technique. PleurX catheter was then attached to the suction bottle and approximately 1 liter of fluid was drained. At the end of the procedure, the catheter was capped and secrued with 2 sutures. Patient tolerated the procedure well, no complications. Chest x-ray ordered. EULALIO VIVEROS MD Apr 16, 2025 17:04
[2025-04-16 17:05] LABS: Base Excess -1.5 mmol/L (-2.0-3.0)
--- NOTE | 2025-04-16 17:06 | DVHNC2 ---
Procedure - Procedure- Right sided pleurX placement ultrasound guided Indication- Recurrent pleural effusions Procedure in detail Consent was obtained and timeout performed per protocol. The patient was placed in the sitting position and ultrasound SonoSite was used to localize pleural fluid. ChloraPrep was used to clean the operative field, sterile drapes to cover the area and Lidocaine for local analgesia. Using right axillary approach, the right pleural space was cannulated and the guide wire was passed via introducer. Subcutaneous tunneling was achieved with a tunneler and size 15.5 Hebrew pleurX catheter was advanced in the right pleural space via peel-away technique. PleurX catheter was then attached to the suction bottle and approximately 1 liter of fluid was drained. At the end of the procedure, the catheter was capped and secured with 2 sutures. Patient tolerated the procedure well, no complications. Chest x-ray ordered. EULALIO VIVEROS MD Apr 16, 2025 17:06
[2025-04-17] VITALS (16 sets, daily range): BP systolic 132–159; BP diastolic 56–85; PULSE 59–74; RESP 16–20; TEMP 97.6–98.3; O2SAT 90–100
[2025-04-17] MEDS: MORPHINE SULFATE INJ 2 MG/ml SYRG IV PRN (03:05)
[2025-04-17] MEDS: LORazepam 2MG/ML-1ML VIAL IV PRN (09:35)
--- NOTE | 2025-04-17 12:06 | DVHPN2 ---
Progress Note - Dictate Date Seen: Apr 17, 2025 Medical Necessity Reason Pt with a Central, PICC or Fol: No vital signs Vital Sign Date Time Temp Pulse Resp B/P (MAP) Pulse Ox O2 Delivery O2 Flow Rate FiO2 04/17/25 11:56 70 18 144/75 04/17/25 10:05 90 Nasal Cannula 3.0 04/17/25 10:05 32 04/17/25 08:35 98.3 98.3 Total Intake and Output 04/16/25 04/16/25 04/17/25 15:00 23:00 07:00 Intake Total 500 ml 0 ml Balance 500 ml 0 ml medications Current Medications Medications Dose Ordered Sig/Brandi Route Start Time Stop Time Status Last Admin Dose Admin Azithromycin 250 ml @ 125 mls/hr DAILY IV 04/07/25 10:00 04/17/25 10:31 125 MLS/HR Allopurinol 100 mg DAILY PO 04/07/25 10:00 04/16/25 10:38 100 MG Atorvastatin Calcium 40 mg HS PO 04/07/25 22:00 04/15/25 22:47 40 MG Empaglifozin 25 mg DAILY PO 04/07/25 10:00 04/16/25 10:39 25 MG Gabapentin 300 mg DAILY PO 04/07/25 10:00 04/16/25 10:39 300 MG Diagnostic Test (Pha) 1 strip Q6HR 04/07/25 00:00 04/16/25 17:55 1 STRIP Insulin Human Regular Q6HR SC 04/07/25 00:00 04/16/25 17:58 4 UNITS Dextrose 50 ml UD PRN IV 04/06/25 23:45 Ondansetron HCl 4 mg Q4HP PRN IV 04/06/25 23:45 Acetaminophen 650 mg Q6HP PRN PO 04/06/25 23:45 Nitroglycerin 0.4 mg Q5MINP PRN SL 04/06/25 23:45 Morphine Sulfate 2 mg Q30M PRN IV 04/06/25 23:45 Ceftriaxone Sodium 50 ml @ 100 mls/hr DAILY@09 IV 04/07/25 09:00 04/17/25 09:15 100 MLS/HR Digoxin 0.125 mg DAILY PO 04/07/25 10:00 04/16/25 10:40 0.125 MG Ipratropium [place] 0.5 mg Q6HWA NEB 04/08/25 18:00 04/17/25 11:46 0.5 MG Albuterol 2.5 mg Q6HWA NEB 04/08/25 18:00 04/17/25 11:46 2.5 MG Budesonide 0.5 mg BID NEB 04/08/25 22:00 04/17/25 06:46 0.5 MG Budesonide 0.5 mg BID NEB 04/08/25 22:00 UNV Colchicine 0.6 mg Q12HR PO 04/11/25 22:00 04/16/25 10:38 0.6 MG Docusate Sodium 100 mg BID PO 04/11/25 22:00 04/16/25 10:39 100 MG Lactulose 30 ml DAILYPRN PRN PO 04/11/25 12:30 04/14/25 15:20 30 ML Acetaminophen/ Hydrocodone Bitart 1 tab Q6HPRN PRN PO 04/13/25 15:00 Morphine Sulfate 1 mg Q2HP PRN IV 04/16/25 19:30 04/17/25 11:56 1 MG Lorazepam 0.5 mg Q2HPRN PRN IV 04/16/25 19:30 04/17/25 09:35 0.5 MG laboratory and microbiology Laboratory Tests 04/16/25 05:45 Test 04/16/25 05:45 Range/Units Serum Glucose 129 H 74-106 mg/dL Assessment/Plan Impression Acute hypoxemic respiratory failure Pleural effusions Emphysema Atelectasis Patient seen and examined Events Low oxygen requirements On 2 liters nasal cannula No distress s/p Bilateral pleurX catheter placement CXR reviewed management Patient is okay to discharge from pulmonary standpoint Drain up to 1 liter from pleurX twice weekly, alternate sides Dietary Evaluation Review Comments: Monitor PO intake, lab values, weight trend, and I/O Expected Outcomes/Goals: Lab values to improve FU 3-5 days Plan discussed with: Patient EULALIO VIVEROS MD Apr 17, 2025 12:06
--- NOTE | 2025-04-17 13:28 | DVHPN2 ---
Subjective He is on nasal cannula Family decided to cancel the BiPAP treatment yesterday so he has full DNR now He is on morphine and Ativan p.r.n. Reviewed: Care Plan, H&P, Labs, Medications Changes from previous H/P or p: Changes General: Per HPI Objective Vitals Vital Signs Date Time Temp Pulse Resp B/P (MAP) Pulse Ox O2 Delivery O2 Flow Rate FiO2 04/17/25 11:56 70 18 144/75 04/17/25 10:05 90 Nasal Cannula 3.0 04/17/25 10:05 32 04/17/25 08:35 98.3 98.3 Intake/Output Intake and Output 04/17/25 07:00 Intake Total 500 ml Balance 500 ml Intake Oral 200 ml IV Total 300 ml # Voids 3 General Appearance: Alert, Oriented X3, Cooperative, mild distress HEENT: Atraumatic, PERRLA Lungs: Clear to auscultation, Normal air movement Cardiovascular: Normal S1, Normal S2 Musculoskeletal: Normal sensory function, Normal motor function Neuro: Normal speech Skin: Dry, Intact Psych/Mental Status: Mental status NL, Mood NL Medications Current Medications Medications Dose Ordered Sig/Brandi Route Start Time Stop Time Status Last Admin Dose Admin Azithromycin 250 ml @ 125 mls/hr DAILY IV 04/07/25 10:00 04/17/25 10:31 125 MLS/HR Allopurinol 100 mg DAILY PO 04/07/25 10:00 04/16/25 10:38 100 MG Atorvastatin Calcium 40 mg HS PO 04/07/25 22:00 04/15/25 22:47 40 MG Empaglifozin 25 mg DAILY PO 04/07/25 10:00 04/16/25 10:39 25 MG Gabapentin 300 mg DAILY PO 04/07/25 10:00 04/16/25 10:39 300 MG Diagnostic Test (Pha) 1 strip Q6HR 04/07/25 00:00 04/16/25 17:55 1 STRIP Insulin Human Regular Q6HR SC 04/07/25 00:00 04/16/25 17:58 4 UNITS Dextrose 50 ml UD PRN IV 04/06/25 23:45 Ondansetron HCl 4 mg Q4HP PRN IV 04/06/25 23:45 Acetaminophen 650 mg Q6HP PRN PO 04/06/25 23:45 Nitroglycerin 0.4 mg Q5MINP PRN SL 04/06/25 23:45 Morphine Sulfate 2 mg Q30M PRN IV 04/06/25 23:45 Ceftriaxone Sodium 50 ml @ 100 mls/hr DAILY@09 IV 04/07/25 09:00 04/17/25 09:15 100 MLS/HR Digoxin 0.125 mg DAILY PO 04/07/25 10:00 04/16/25 10:40 0.125 MG Ipratropium [place] 0.5 mg Q6HWA NEB 04/08/25 18:00 04/17/25 11:46 0.5 MG Albuterol 2.5 mg Q6HWA NEB 04/08/25 18:00 04/17/25 11:46 2.5 MG Budesonide 0.5 mg BID NEB 04/08/25 22:00 04/17/25 06:46 0.5 MG Budesonide 0.5 mg BID NEB 04/08/25 22:00 UNV Colchicine 0.6 mg Q12HR PO 04/11/25 22:00 04/16/25 10:38 0.6 MG Docusate Sodium 100 mg BID PO 04/11/25 22:00 04/16/25 10:39 100 MG Lactulose 30 ml DAILYPRN PRN PO 04/11/25 12:30 04/14/25 15:20 30 ML Acetaminophen/ Hydrocodone Bitart 1 tab Q6HPRN PRN PO 04/13/25 15:00 Morphine Sulfate 1 mg Q2HP PRN IV 04/16/25 19:30 04/17/25 11:56 1 MG Lorazepam 0.5 mg Q2HPRN PRN IV 04/16/25 19:30 04/17/25 09:35 0.5 MG Laboratory Results Laboratory Tests 04/16/25 05:45 Blood Gas Results Test 04/16/25 15:39 04/16/25 16:42 Arterial Blood pH 7.232 (7.350-7.450) 7.230 (7.350-7.450) FiO2 % 32.0 40.0 Microbiology Microbiology Date/Time Source Procedure Growth Status 04/09/25 12:40 Pleural Fluid Gram Stain - Final Complete 04/09/25 12:40 Pleural Fluid Body Fluid Culture - Final Complete Assessment/Plan Assessment/Plan B pleural effusions s/p B thoracentesis Right lung masses Rule out Lung cancer B pneumonia CKD HTN Afib on Eliquis CAD on Plavix COPD on home O2 Diastolic HF DM2 PLAN: Send pleural fluid to lab for LDH, glucose, protein, cell count, gram stain, C&S, and cytology IV antibiotics: Rocephin and Zithromax Hold Eliquis and Plavix for CT guided biopsy IR consult for CT guided lung mass biopsy O2 as needed Monitor closely 04/10/2025: Discussed the case with the patient with the his at the bedside Now the patient and the says that they do not want to have the lung mass biopsy done because he is not willing to have treatment for it anyway whether it is going to be chemo or radiation or surgery He would like to go home He would like to wait however until he gets a pathology report from the thoracentesis pleural fluid that we drained yesterday He is also interested in having a PleurX catheter for continuous drainage at home We will discuss the above with pulmonary service for possible PleurX catheter placement before discharge Cancel the biopsy Oxygen as needed 04/11/2025: Constipation: Start Colace and lactulose Right knee swelling most likely due to gout: Get x-ray of the right knee, colchicine 0.6 mg twice a day Gout: Continue allopurinol Generalized weakness: Start physical therapy Pleural effusion: Repeat chest x-ray Pathology is still pending on pleural effusion thoracentesis done 2 days ago Monitor closely Continue to hold Eliquis and Plavix for anticipation for doing PleurX catheters 04/13/2025: Resume Eliquis and Plavix Hold the discharge Arrange placement at a senior care facility for physical therapy Consult social director to arrange SNF for physical therapy Cytology is still pending on pleural fluid 04/14/2025: Possible recurrent pleural effusion Get a portable chest x-ray If the pleural effusion is back then he might need PleurX catheters inserted Hold Plavix and Eliquis again in anticipation for possible procedure Monitor closely The patient is still thinking about discharge planning whether he wants to go to SNF versus hospice at home 04/15/2025: Bilateral pleural effusions: Dr. Lewis is planning PleurX catheters tomorrow Arrange SNF for rehab and physical therapy 04/16/2025: PleurX catheter to be done today Discharge to SNF afterwards 04/17/2025: Continue comfort treatment only DNR Morphine and Ativan p.r.n. Discussed with the family at the bedside Plan discussed with: Spouse, Daughter My Orders Orders - ORVILLE FRANKS MD Procedure Category Date Status Time Chest Xray 1 View XY 04/16/25 Resulted 15:29 Abg W/ Co-Ox RT 04/16/25 Logged 15:29 Code Status CODE 04/16/25 Transmitted 16:13 Abg W/ Co-Ox RT 04/16/25 Logged 16:50 BIPAP RT 04/16/25 Logged 17:05 Morphine Sulfate PHA 04/16/25 In Process Injection 19:30 Lorazepam 2mg/Ml Inj PHA 04/16/25 In Process (Ativan Inj) 19:30 Date of Service: Apr 17, 2025 Billing Provider: ORVILLE FRANKS MD Common Visit Codes: NOT BILLABLE ORVILLE FRANKS MD Apr 17, 2025 13:27
[2025-04-18] VITALS (18 sets, daily range): BP systolic 93–149; BP diastolic 53–80; PULSE 69–74; RESP 16–20; TEMP 98–98.6; O2SAT 85–100
--- NOTE | 2025-04-18 12:14 | DVHPN2 ---
Subjective Less responsive Family at the bedside Reviewed: Care Plan, H&P, Labs, Medications Changes from previous H/P or p: Changes General: Per HPI Objective Vitals Vital Signs Date Time Temp Pulse Resp B/P (MAP) Pulse Ox O2 Delivery O2 Flow Rate FiO2 04/18/25 11:34 96 Nasal Cannula* 2 28 04/18/25 11:34 74 16 04/18/25 10:49 140/73 04/18/25 08:47 98.3 98.3 Intake/Output Intake and Output 04/18/25 07:00 Intake Total 350 ml Balance 350 ml Intake Oral 0 ml IV Total 350 ml General Appearance: Alert, Oriented X3, Cooperative, mild distress HEENT: Atraumatic, PERRLA Lungs: Clear to auscultation, Normal air movement Cardiovascular: Normal S1, Normal S2 Musculoskeletal: Normal sensory function, Normal motor function Neuro: Normal speech Skin: Dry, Intact Psych/Mental Status: Mental status NL, Mood NL Medications Current Medications Medications Dose Ordered Sig/Brandi Route Start Time Stop Time Status Last Admin Dose Admin Azithromycin 250 ml @ 125 mls/hr DAILY IV 04/07/25 10:00 04/18/25 09:50 125 MLS/HR Diagnostic Test (Pha) 1 strip Q6HR 04/07/25 00:00 04/16/25 17:55 1 STRIP Insulin Human Regular Q6HR SC 04/07/25 00:00 04/16/25 17:58 4 UNITS Dextrose 50 ml UD PRN IV 04/06/25 23:45 Ondansetron HCl 4 mg Q4HP PRN IV 04/06/25 23:45 Acetaminophen 650 mg Q6HP PRN PO 04/06/25 23:45 Nitroglycerin 0.4 mg Q5MINP PRN SL 04/06/25 23:45 Ceftriaxone Sodium 50 ml @ 100 mls/hr DAILY@09 IV 04/07/25 09:00 04/18/25 08:54 100 MLS/HR Digoxin 0.125 mg DAILY PO 04/07/25 10:00 04/16/25 10:40 0.125 MG Ipratropium [place] 0.5 mg Q6HWA NEB 04/08/25 18:00 04/18/25 11:33 0.5 MG Albuterol 2.5 mg Q6HWA NEB 04/08/25 18:00 04/18/25 11:33 2.5 MG Budesonide 0.5 mg BID NEB 04/08/25 22:00 04/18/25 07:38 0.5 MG Budesonide 0.5 mg BID NEB 04/08/25 22:00 UNV Lactulose 30 ml DAILYPRN PRN PO 04/11/25 12:30 04/14/25 15:20 30 ML Morphine Sulfate 1 mg Q2HP PRN IV 04/16/25 19:30 04/18/25 10:49 1 MG Lorazepam 0.5 mg Q2HPRN PRN IV 04/16/25 19:30 04/17/25 23:05 0.5 MG Laboratory Results Laboratory Tests 04/16/25 05:45 Microbiology Microbiology Date/Time Source Procedure Growth Status 04/09/25 12:40 Pleural Fluid Gram Stain - Final Complete 04/09/25 12:40 Pleural Fluid Body Fluid Culture - Final Complete Assessment/Plan Assessment/Plan B pleural effusions s/p B thoracentesis Right lung masses Rule out Lung cancer B pneumonia CKD HTN Afib on Eliquis CAD on Plavix COPD on home O2 Diastolic HF DM2 PLAN: Send pleural fluid to lab for LDH, glucose, protein, cell count, gram stain, C&S, and cytology IV antibiotics: Rocephin and Zithromax Hold Eliquis and Plavix for CT guided biopsy IR consult for CT guided lung mass biopsy O2 as needed Monitor closely 04/10/2025: Discussed the case with the patient with the his at the bedside Now the patient and the says that they do not want to have the lung mass biopsy done because he is not willing to have treatment for it anyway whether it is going to be chemo or radiation or surgery He would like to go home He would like to wait however until he gets a pathology report from the thoracentesis pleural fluid that we drained yesterday He is also interested in having a PleurX catheter for continuous drainage at home We will discuss the above with pulmonary service for possible PleurX catheter placement before discharge Cancel the biopsy Oxygen as needed 04/11/2025: Constipation: Start Colace and lactulose Right knee swelling most likely due to gout: Get x-ray of the right knee, colchicine 0.6 mg twice a day Gout: Continue allopurinol Generalized weakness: Start physical therapy Pleural effusion: Repeat chest x-ray Pathology is still pending on pleural effusion thoracentesis done 2 days ago Monitor closely Continue to hold Eliquis and Plavix for anticipation for doing PleurX catheters 04/13/2025: Resume Eliquis and Plavix Hold the discharge Arrange placement at a fpc facility for physical therapy Consult director social to arrange SNF for physical therapy Cytology is still pending on pleural fluid 04/14/2025: Possible recurrent pleural effusion Get a portable chest x-ray If the pleural effusion is back then he might need PleurX catheters inserted Hold Plavix and Eliquis again in anticipation for possible procedure Monitor closely The patient is still thinking about discharge planning whether he wants to go to SNF versus hospice at home 04/15/2025: Bilateral pleural effusions: Dr. Lewis is planning PleurX catheters tomorrow Arrange SNF for rehab and physical therapy 04/16/2025: PleurX catheter to be done today Discharge to SNF afterwards 04/17/2025: Continue comfort treatment only DNR Morphine and Ativan p.r.n. Discussed with the family at the bedside 04/18/25: DC meds Morphine and ativan prn O2 DNR Comfort care Discussed with at the bedside Plan discussed with: Spouse, Son Date of Service: Apr 18, 2025 Billing Provider: ORVILLE FRANKS MD Common Visit Codes: NOT BILLABLE ORVILLE FRANKS MD Apr 18, 2025 12:14
--- NOTE | 2025-04-18 12:28 | DVHSR ---
APPROVED REPORT EXAM: Two-dimensional and M-mode echocardiogram with Doppler and color Doppler. Blood Pressure: 122/81 mmHg INDICATION EF Surgery/Intervention Valve Replacement: Pacemaker: [employer] Height: 5'11", Weight: 174 DIMENSIONS LVDd 4.3 (3.8-5.7cm) LA (2D) 5.1 (1.9-4.0cm) Aortic Root 3.5 (2.0-3.7cm) LVDs 3.3 (2.5-4.0cm) LA (MM) (1.9-4.0cm) Aortic Cusp Exc (1.5-2.0cm) EF (%) 48.0 (55-70%) Rt. Atrium 6.5 (1.9-4.0cm) Asc. Aorta cm IVSd 2.1 (0.7-1.1cm) RV (D) 4.9 (1.8-2.4cm) PWd 2.0 (0.7-1.1cm) Mitral Valve Mitral Mitral Stenosis E wave 1.13m/s MV Mean GR. mmHg E/A ratio 0.0 2D MVA cm2 Aortic Valve Aortic Valve Aortic Stenosis V1 0.89m/s AO Mean GR. 7mmHg V2 1.78m/s AO Peak GR. 13mmHg LVOT Diameter 2.4 (1.8-2.4cm) Doppler BHARAT 2.26cm2 Pulmonic Valve V2 1.19m/s Tricuspid Valve TR Velocity 2.26m/s RVSP 24mmHg Other Information Quality : Technically Limited Rhythm : Technically limited study due to patient position. Conclusion lvef 40% moderate LV dysfunction severe LVH s/p AVR biatrial enlargement RV not well seen small pericardial effusion noted no HD compromise
[2025-04-18] MEDS: MORPHINE SULFATE 4 MG/ML SYR/VIAL IV PRN (14:54)
[2025-04-19 01:00] VITALS: BP 127/44; PULSE 70; RESP 18; TEMP 98; O2SAT 90
[2025-04-19 05:00] VITALS: BP 103/38; PULSE 74; RESP 18; TEMP 97.5; O2SAT 90
[2025-04-19 08:00] VITALS: PULSE 70
[2025-04-19 08:30] VITALS: PULSE 70; RESP 16; O2SAT 92
[2025-04-19 09:00] VITALS: BP 94/53; PULSE 70; RESP 16; TEMP 96.9; O2SAT 92
[2025-04-19 10:00] VITALS: O2SAT 92
--- NOTE | 2025-04-19 12:33 | DVHDS2 ---
Discharge Summary Date of Admission Apr 06, 2025 at 23:31 Date of Discharge: Apr 16, 2025 Labs/Diagnostic Data: Laboratory Results Test 04/18/25 05:40 04/16/25 17:50 04/16/25 16:42 04/16/25 15:39 Digoxin Level 0.99 ng/mL (0.8-2) POC Glucose 213 mg/dl (70-106) Blood Gas Specimen Type Arterial Blood Gas Sample Site Left radial Blood Gas Patient Temperature 37.0 Arterial Blood Date Drawn [id number] Arterial Blood pH 7.230 (7.350-7.450) Arterial Blood Partial Pressure CO2 67.9 mmHg (35.0-48.0) Arterial Blood Partial Pressure O2 93.7 mmHg (83.0-108.0) Arterial Blood HCO3 27.8 mmol/L (21.0-28.0) Arterial Blood Oxygen Saturation 96.3 % (94.0-98.0) Arterial Blood Base Excess -1.5 mmol/L (-2.0-3.0) Arterial Blood Oxyhemoglobin 94.3 % (94.0-98.0) Arterial Blood Carboxyhemoglobin 1.6 % (0.5-1.5) Arterial Blood Methemoglobin 0.5 % (0.0-1.5) Arterial Blood Deoxyhemoglobin 3.6 % (0.0-5.0) Sudhir Test Positive Blood Gas Total Hemoglobin 14.50 g/dL (13.5-17.5) Blood Gas Set Respiration Rate 12.0 Blood Gas Modality Mask - bipap FiO2 % 40.0 Blood Gas EPAP 8 Blood Gas IPAP 16 Blood Gas Critical Value Read Back Yes Blood Gas Notified Whom jeff Sandy md Blood Gas Notified Time [id number] Blood Gas Notified By Letitia lechuga rrt Blood Gas Liter Flow 3.00 Test 04/16/25 05:45 04/09/25 13:27 04/09/25 12:40 04/07/25 09:50 White Blood Count 12.0 10^3/uL (4.4-10.8) Red Blood Count 4.38 10^6/uL (4.5-5.90) Hemoglobin 12.8 g/dL (13.5-17.5) Hematocrit 40.1 % (41.0-53.0) Mean Corpuscular Volume 91.7 fL (80.0-100.0) Mean Corpuscular Hemoglobin 29.3 pg (28.0-32.0) Mean Corpuscular Hemoglobin Concent 31.9 g/dL (32.0-36.0) Red Cell Distribution Width 15.5 % (11.8-14.3) Platelet Count 338 10^3/uL (140-450) Mean Platelet Volume 8.1 fL (6.9-10.8) Neutrophils (%) (Auto) 81.3 % (37.0-80.0) Lymphocytes (%) (Auto) 7.4 % (10.0-50.0) Monocytes (%) (Auto) 8.3 % (0.0-12.0) Eosinophils (%) (Auto) 2.1 % (0.0-7.0) Basophils (%) (Auto) 0.9 % (0.0-2.0) Neutrophils # (Auto) 9.8 10 ^3/uL (1.6-8.6) Lymphocytes # (Auto) 0.9 10 ^3/uL (0.4-5.4) Monocytes # (Auto) 1.0 10 ^3/uL (0-1.3) Eosinophils # (Auto) 0.3 10 ^3/uL (0-0.8) Basophils # (Auto) 0.1 10 ^3/uL (0-0.2) Nucleated Red Blood Cells 0.0 % Sodium Level 143 mmol/L (136-145) Potassium Level 4.2 mmol/L (3.5-5.1) Chloride Level 105 mmol/L (98-107) Carbon Dioxide Level 32 mmol/L (20-31) Anion Gap 6 (5-15) Blood Urea Nitrogen 34 mg/dL (9-23) Creatinine 1.22 mg/dL (0.700-1.30) Glomerular Filtration Rate Calc 59 mL/min (>90) BUN/Creatinine Ratio 27.9 (10.0-20.0) Serum Glucose 129 mg/dL (74-106) Calcium Level 11.0 mg/dL (8.7-10.4) Magnesium Level 2.4 mg/dL (1.6-2.6) Total Bilirubin 0.5 mg/dL (0.2-1.0) Aspartate Amino Transferase (AST) 26 U/L (13-40) Alanine Aminotransferase (ALT) 21 U/L (7-40) Alkaline Phosphatase 91 U/L (46-116) Total Protein 6.2 g/dL (5.7-8.2) Albumin 3.7 g/dL (3.2-4.8) Prothrombin Time 12.8 sec (9.3-11.8) Prothrombin Time INR 1.23 (0.9-1.15) Activated Partial Thromboplast Time 32.3 SEC (24.5-34.5) Body Fluid Source Pleural fluid(right) Body Fluid WBC (Manual) 820 CUMM (0-200) Body Fluid RBC (Manual) 2956 CUMM (0-2000) Body Fluid Mononuclear Cells 59 % Body Fluid Polymorphonuclear Cells 41 % (0-25) Body Fluid Glucose 183 mg/dL (.) Body Fluid Total Protein 1.2 g/dL (.) Body Fluid Lactate Dehydrogenase 73 IU/L (.) SARS-CoV-2 Antigen (Rapid) Negative (NEGATIVE) Test 04/07/25 09:06 04/07/25 06:26 04/06/25 22:30 04/06/25 19:30 Influenza Type A Antigen Negative (Negative) Influenza Type B Antigen Negative (Negative) Erythrocyte Sedimentation Rate 19 mm/hr (0-20) C-Reactive Protein High Sensitivity 0.65 mg/dL (<1.0) Troponin I High Sensitivity 220 ng/L (</=54) Lactic Acid Level 0.8 mmol/L (0.4-2.0) B-Type Natriuretic Peptide 752.84 pg/mL (0-100) Other Laboratory Tests 04/16/25 05:45 Brief Hx & Hospital Course: Final diagnoses: B pleural effusions s/p B thoracentesis Right lung masses Rule out Lung cancer B pneumonia CKD HTN Afib on Eliquis CAD on Plavix COPD on home O2 Diastolic HF DM2 After he had his thoracentesis bilaterally he started accumulating the pleural effusion again and therefore he was getting short of breath again gradually He underwent bilateral PleurX catheters placement however after that he did not improve, on the other hand he developed a slight pneumothorax in the right side He is medical condition continue to worsen He was very weak He was very discouraged to be discharge His family was not able to take care of him at home and therefore we discussed the possibility of sending him to an SNF however due to the fact that he continued to worsen and was not able to participate with physical therapy we kept him here in the hospital and he became more hypoxic and more lethargic gradually He was made DNR Initially was given BiPAP but then the family decided to discontinue that Then the family also decided on comfort care completely and therefore we stopped all the antibiotics and we kept him only on morphine and Ativan and oxygen for comfort Today he became less responsive and bradycardic and hypotensive and he at 11:07 a.m. this morning peacefully with the family present at the bedside Condition at Discharge: Poor Final Diagnosis/Problems List B pleural effusions s/p B thoracentesis Right lung masses Rule out Lung cancer B pneumonia CKD HTN Afib on Eliquis CAD on Plavix COPD on home O2 Diastolic HF DM2 Discharge Disposition: at Hospital SNF Discharge Will this Physician continue t: No Discharge Instruct/Medications Diet: Consistent carbohydrate, Cardiac 2g Na,low cholest Activity: Light activity Follow Up/Referral: SNF MD Medications: See the medication reconciliation Scheduled Albuterol Sulfate (Albuterol Sulfate), 2 MG PO Q6HP, (Reported) Allopurinol (Allopurinol), 100 MG PO DAILY, (Reported) Apixaban Base (Eliquis), 2.5 MG PO BID, (Reported) Apixaban Base (Eliquis), 2.5 MG PO BID, (Reported) Aspirin (Aspirin), 81 MG PO DAILY, (Reported) Atorvastatin Calcium (Lipitor), 1 TAB PO QPM, (Reported) Cholecalciferol (Vitamin D3), 2,000 UNIT PO DAILY, (Reported) Cinacalcet Hydrochloride (Sensipar), 60 MG PO DAILY, (Reported) Clopidogrel Bisulfate (Clopidogrel), 1 TAB PO DAILY, (Reported) Colchicine (Colchicine), 0.6 MG PO BID Digoxin (Digoxin), 1 TAB PO DAILY, (Reported) Doxycycline Monohydrate (Doxycycline Monohydrate), 1 CAP PO BID Empagliflozin (Jardiance), 25 MG PO DAILY, (Reported) Ezetimibe (Ezetimibe), 1 TAB PO DAILY, (Reported) Ferrous Sulfate (Ferrous Sulfate), 325 MG PO EOD, (Reported) Furosemide (Furosemide), 20 MG PO BIDD, (Reported) Furosemide (Furosemide), 1 TAB PO DAILY, (Reported) Gabapentin (Gabapentin), 300 MG PO DAILY, (Reported) Gabapentin (Gabapentin), 1 TAB PO DAILY, (Reported) Glipizide (Glipizide), 1 TAB PO BID, (Reported) Hydrocodone-Acetaminophen (Hydrocodone Bitartrate/AC 5-325 mg), 1 TAB PO BID Ipratropium Angora (Ipratropium Angora), 0.2 % NA QID, (Reported) Levofloxacin Hemihydrate (Levofloxacin), 1 TAB PO DAILY Methylprednisolone (Medrol Dosepak), 4 MG PO UD Metoprolol Tartrate (Lopressor), 1 TAB PO DAILY, (Reported) Potassium Gluconate (Potassium), 8 MEQ PO DAILY, (Reported) Semaglutide (Ozempic 8 mg/3Ml), 0.5 INJ SC QWEEKLY, (Reported) Spironolactone (Spironolactone), 1 TAB PO DAILY, (Reported) Spironolactone (Spironolactone), 1 TAB PO DAILY, (Reported) Tamsulosin Hcl (Tamsulosin Hcl), 0.4 MG PO QPM, (Reported) Scheduled PRN Albuterol Sulfate (Albuterol Sulfate), 2.5 MG PO Q6HP PRN for SHORTNESS OF BREATH, (Reported) Albuterol Sulfate (Albuterol Sulfate), 90 MCG PO Q6HP PRN for SHORTNESS OF BREATH, (Reported) Meclizine Hcl (Meclizine Hcl), 25 MG PO BIDP PRN for DIZZINESS, (Reported) Miscellaneous Medications Cholecalciferol (D3), 1,000 UNIT PO, (Reported) Cinacalcet HCl (Cinacalcet Hydrochloride), 30 MG PO, (Reported) Famotidine (Famotidine), 1 TAB PO, (Reported) Famotidine In Nacl (Famotidine), 40 MG PO, (Reported) Lactobacillus (Acidophilus Lactobacilli), 1 CAP PO, (Reported) Prednisone (Prednisone), 20 MG PO, (Reported) Discontinued Medications Azithromycin (Zithromax Z-Mikie), 250 MG PO DAILY Azithromycin (Azithromycin), 500 MG PO DAILY, (Reported) Discharge Statement: "Patient was advised to return to the ER or call 911 if any headaches, dizziness, shortness of breath, chest pain, abdominal pain, bleeding, fevers, or worsening of medical condition. Patient was counseled about treatment plan, medications, possible side effects, patientverbalized understanding. All questions were answered to the best of my ability. This discharge took greater then 30 minutes in planning, reviewing documentation, counseling the patient, and discussing with other team members." ASSESSMENT ASSESSMENT Assessment B pleural effusions s/p B thoracentesis Right lung masses Rule out Lung cancer B pneumonia CKD HTN Afib on Eliquis CAD on Plavix COPD on home O2 Diastolic HF DM2 Date of Service: Apr 19, 2025 Billing Provider: ORVILLE SANDY MD Common Visit Codes: NOT BILLABLE ORVILLE SANDY MD Apr 19, 2025 12:33
== END 2025-04-19 15:44 ==
LOC: EDBD 18:57 → ER 18:57 → OVERFLOW 23:31 → TELE-WESTW 04-07 21:32
PROVIDERS: ADMIT Internal Medicine Geriatric Medicine; ATTEND Internal Medicine Geriatric Medicine
PROC: 0W993ZX Drainage of Right Pleural Cavity, Percutaneous Approach, Diagnostic (ICD-10-PCS; principal; 2025-04-09)
PROC: 0W9B3ZX Drainage of Left Pleural Cavity, Percutaneous Approach, Diagnostic (ICD-10-PCS; 2025-04-09)
PROC: 5A09357 Assistance with Respiratory Ventilation, Less than 24 Consecutive Hours, Continuous Positive Airway Pressure (ICD-10-PCS; 2025-04-13)
PROC: 0W9B30Z Drainage of Left Pleural Cavity with Drainage Device, Percutaneous Approach (ICD-10-PCS; 2025-04-16)
PROC: 5A09357 Assistance with Respiratory Ventilation, Less than 24 Consecutive Hours, Continuous Positive Airway Pressure (ICD-10-PCS; 2025-04-16)
PROC: 0W9930Z Drainage of Right Pleural Cavity with Drainage Device, Percutaneous Approach (ICD-10-PCS; 2025-04-16)
DX: I13.0 Hypertensive heart and chronic kidney disease with heart failure and stage 1 through stage 4 chronic kidney disease, or unspecified chronic kidney disease (principal); I50.33 Acute on chronic diastolic (congestive) heart failure; I21.A1 Myocardial infarction type 2; J96.21 Acute and chronic respiratory failure with hypoxia; J15.69 Pneumonia due to other Gram-negative bacteria; J15.9 Unspecified bacterial pneumonia; I31.39 Other pericardial effusion (noninflammatory); Z66 Do not resuscitate; J91.8 Pleural effusion in other conditions classified elsewhere; J44.0 Chronic obstructive pulmonary disease with (acute) lower respiratory infection; Z79.01 Long term (current) use of anticoagulants; E11.22 Type 2 diabetes mellitus with diabetic chronic kidney disease; N18.9 Chronic kidney disease, unspecified; Z95.2 Presence of prosthetic heart valve; E66.9 Obesity, unspecified; J43.9 Emphysema, unspecified; I48.91 Unspecified atrial fibrillation; I25.10 Atherosclerotic heart disease of native coronary artery without angina pectoris; K59.00 Constipation, unspecified; M10.9 Gout, unspecified; R91.8 Other nonspecific abnormal finding of lung field; Z88.2 Allergy status to sulfonamides; Z79.2 Long term (current) use of antibiotics; Z79.899 Other long term (current) drug therapy; Z79.82 Long term (current) use of aspirin; Z90.49 Acquired absence of other specified parts of digestive tract; Z99.81 Dependence on supplemental oxygen; Z95.0 Presence of cardiac pacemaker; Z83.3 Family history of diabetes mellitus; Z82.5 Family history of asthma and other chronic lower respiratory diseases; Z79.84 Long term (current) use of oral hypoglycemic drugs; Z68.27 Body mass index [BMI] 27.0-27.9, adult
CPT/HCPCS: 32555; 36415; 36600; 71045; 71250; 73560; 80048; 80053; 80162; 82805; 82962; 83605; 83735; 83880; 84484; 85025; 85610; 85652; 85730; 86141; 87071; 87205; 87426; 87804; 89051; 93005; 93306; 94640; 94660; 96365; 97110; 97116; 97163; 97530; G0378; J1815; J2405